=== PATIENT | female | born 1985 | race Caucasian/White ===

== ENCOUNTER 2016-08-27 05:23 | Observation (INO) | payer MEDICAID ==
[2016-08-27 05:58] LABS: APPEARANCE,URINE CLEAR; BILIRUBIN,URINE NEGATIVE (NEGATIVE); GLUCOSE, URINE NEGATIVE (NEGATIVE); KETONES,URINE NEGATIVE (NEGATIVE); LEUKOCYTE ESTERASE,URINE NEGATIVE (NEGATIVE); NITRITE,URINE NEGATIVE (NEGATIVE); PROTEIN,URINE NEGATIVE (NEGATIVE); URINE SPECIFIC GRAVITY 1.009; UROBILINOGEN,URINE NEGATIVE mg/dL (<2.0)
[2016-08-27 06:12] LABS: URINE BARBITURATES SCREEN NEGATIVE; URINE METHADONE SCREEN NEGATIVE; URINE PHENCYCLIDINE SCREEN NEGATIVE
--- NOTE | 2016-08-27 06:22 | L&D General Admission ---
General Admit Datetime Report Generated by CPN: 08/27/2016 06:00 INFORMATION Patient Age: 31 (08/02/2016 13:04:QS system process) EDC: 10/11/2016 00:00 (08/27/2016 05:27:Crystal Ermelinda RN) : 3 (08/27/2016 05:27:Crystal Ermelinda, RN) Para: 2 (08/27/2016 05:27:Crystal Ermelinda RN) Livin (08/27/2016 05:27:Crystal [place], RN) Baby, Number in Womb: 2 (08/27/2016 05:27:Crystal Ermelinda, RN) CARE Primary Director Investor Relations: [employer] (08/27/2016 05:27:Imani Wadsworth RN) Adequate Care: Yes (08/27/2016 05:27:Crystal Ermelinda RN) Height (in): 65 (08/27/2016 05:35:QS system process) ALLERGIES Medication Allergy: No (08/27/2016 05:27:Crystal Ermelinda, RN) Medication Allergies: No Known Allergies (08/27/2016) (08/27/2016 05:35:QS system process) Latex Allergy: No Latex Allergies (08/27/2016 05:27:Crystal Ermelinda, RN) Food Allergies: NA (08/27/2016 05:27:Crystal Ermelinda, RN) Environmental Allergies: NA (08/27/2016 05:27:Crystal Ermelinda, RN) COMMUNICATION Primary Language: Slovak (08/27/2016 05:27:Imani Wadsworth RN) Communication Barrier(s): None (08/27/2016 05:27:Imani Wadsworth RN) DEMOGRAPHICS Address: [address] [place] [id number] (08/02/2016 13:04:QS system process) Zipcode: [address] (08/02/2016 13:04:QS system process) Home (08/02/2016 13:04:QS system process) SSN: [id number] (08/02/2016 13:04:QS system process) Next of Kin Name: CYNTHIA SMITH (08/02/2016 13:04:QS system process) Next of Kin (08/02/2016 13:04:QS system process) Next of Kin Relationship: SPO (08/02/2016 13:04:QS system process) Date of : 1985 (08/02/2016 13:04:QS system process) Marital Status: (08/02/2016 13:04:QS system process) Sex: Female (08/02/2016 13:04:QS system process) Race: (08/02/2016 13:04:QS system process) Ethnicity: Non- or (08/02/2016 13:04:QS system process) Religious: Catholic (08/02/2016 13:04:QS system process) DRUG AND ALCOHOL USE Alcohol: No (08/27/2016 05:27:Crystal Ermelinda, RN) Cigarettes: Former Smoker. [id number] (08/27/2016 05:27:Crystal [place], RN) Marijuana: No (08/27/2016 05:27:Crystal Ermelinda, RN) Cocaine: No (08/27/2016 05:27:Crystal [place], RN) Other Illicit Drugs: No (08/27/2016 05:27:Crystal [place], RN) VACCINE HISTORY Influenza Vaccine: No (08/27/2016 05:27:Crystal Ermelinda, RN) Pneumococcal Vaccine: No (08/27/2016 05:27:Crystal [place], RN) Tetanus Vaccine: No (08/27/2016 05:27:Crystal Ermelinda, RN) Tdap Vaccine: Yes (08/27/2016 05:27:Crystal [place], RN) Tdap Date: 07/21/2016 (08/27/2016 05:27:Crystal Ermelinda, RN) Hepatitis B Vaccine: No (08/27/2016 05:27:Crystal Ermelinda, RN) Occupational Therapist Home Based: Other (08/27/2016 05:27:Imani Wadsworth RN) Feeding Preference: Breast (08/27/2016 05:27:Imani Wadsworth RN) Benefit of Breast Feed Discussed: Yes (08/27/2016 05:27:Imani Wadsworth RN) Circumcision: Yes (08/27/2016 05:27:Imani Wadsworth RN) Classes Attended: No (08/27/2016 05:27:Imani Wadsworth RN) Tubal Ligation: No (08/27/2016 05:27:Imani Wadsworth RN) Tubal Authorization Signed: N/A (08/27/2016 05:27:Imani Wadsworth RN) Consent: N/A (08/27/2016 05:27:Imani Wadsworth RN) Consent Signed: N/A (08/27/2016 05:27:Imani Wadsworth RN) Pain Management Plans: Epidural (08/27/2016 05:27:Imani Wadsworth RN) Plans for Labor and Delivery: None (08/27/2016 05:27:Imani Wadsworth RN) Support Person: Porfirio Smith (08/27/2016 05:27:Imani Wadsworth RN) Support Person Relationship: (08/27/2016 05:27:Imani Wadsworth RN) Cultural/Spritual Practice: Yes (08/27/2016 05:27:Imani Wadsworth RN) Spir/Cult Dietary Needs: Yes (08/27/2016 05:27:Imani Wadsworth RN) LIVING SITUATION/DISCHARGE PLAN Living Arrangements: House (08/27/2016 05:27:Imani Wadsworth RN) Adequate Access to:: Electric; Heat; Refrigeration; Plumbing/Running water; Phone; Transportation (08/27/2016 05:27:Imani Wadsworth RN) WIC Program: Yes (08/27/2016 05:27:Imani Wadsworth RN) Discharge Support Dba Person: Porfirio Smith (08/27/2016 05:27:Imani Wadsworth RN) Person to Help after Discharge: Porfirio Smith (08/27/2016 05:27:Imani Wadsworth RN) Currently Using Commun Resources: Yes (08/27/2016 05:27:Imani Wadsworth RN) Specify Current Resource Used: Food stamps (08/27/2016 05:27:Imani Wadsworth RN) Outside Agency/Bus Washer: Yes (08/27/2016 05:27:Imani Wadsworth RN) Car Seat for Discharge: Yes (08/27/2016 05:27:Imani Wadsworth RN) Adoption Requested: No (08/27/2016 05:27:Imani Wadsworth RN) Pt Contact w/infant Post : N/A (08/27/2016 05:27:Imani Wadsworth RN) LABS Blood Type: A Positive (08/27/2016 05:27:Imani Wadsworth RN) Antibody Screen: Negative (08/27/2016 05:27:Imani Wadsworth RN) Gonorrhea: Negative (08/27/2016 05:27:Imani Wadsworth RN) Chlamydia: Negative (08/27/2016 05:27:Imani Wadsworth RN) Rubella: Immune (08/27/2016 05:27:Imani Wadsworth RN) OB/PREVIOUS HISTORY Previous Procedures: NST (08/27/2016 05:27:Imani Wadsworth RN) Current Procedures: Ultrasound; NST (08/27/2016 05:27:Imani Wadsworth RN) History of Previous : No (08/27/2016 05:27:Imani Wadsworth RN) History of Gestational Diabetes: No (08/27/2016 05:27:Imani Wadsworth RN) History of PIH: No (08/27/2016 05:27:Imani Wadsworth RN) History of Incompetent Cervix: No (08/27/2016 05:27:Imani Wadsworth RN) History of Placenta Previa/Abrup: No (08/27/2016 05:27:Imani Wadsworth RN) History of Macrosomia: No (08/27/2016 05:27:Imani Wadsworth RN) History of IUGR: No (08/27/2016 05:27:Imani Wadsworth RN) History of Hemorrhage: No (08/27/2016 05:27:Imani Wadsworth RN) History of Loss/Stillborn: No (08/27/2016 05:27:Imani Wadsworth RN) History of : No (08/27/2016 05:27:Imani Wadsworth RN) History of D (Rh) Sensitization: No (08/27/2016 05:27:Imani Wadsworth RN) History Recurrent Loss/Stillborn: No (08/27/2016 05:27:Imani Wadsworth RN) History Depression/PP Depression: No (08/27/2016 05:27:Imani Wadsworth RN) History of Uterine Anomaly/NAVID: No (08/27/2016 05:27:Imani Wadsworth RN) History of Infertility: No (08/27/2016 05:27:Imani Wadsworth RN) History of ART Treatment: No (08/27/2016 05:27:Imani Wadsworth RN) History of NAVID: No (08/27/2016 05:27:Imani Wadsworth RN) Comments Obstetrical History: 04/10/2011- vaginal delivery 8lbs 08/14/2014- vaginal delivery 8 lbs 10 oz (08/27/2016 05:27:Imani Wadsworth RN) MEDICAL HISTORY Med Hx Diabetes: No (08/27/2016 05:27:Imani Wadsworth RN) Med Hx Hypertension: No (08/27/2016 05:27:Imani Wadsworth RN) Med Hx Heart Disease: No (08/27/2016 05:27:Imani Wadsworth RN) Med Hx Autoimmune Disorder: No (08/27/2016 05:27:Imani Wadsworth RN) Med Hx Kidney Disease/UTI: No (08/27/2016 05:27:Imani Wadsworth RN) Med Hx Neurologic/Epilepsy: No (08/27/2016 05:27:Imani Wadsworth RN) Med Hx Psychiatric Disorders: No (08/27/2016 05:27:Imani Wadsworth RN) Med Hx Hepatitis/Liver Disease: No (08/27/2016 05:27:Imani Wadsworth RN) Med Hx Varicosities/Phlebitis: No (08/27/2016 05:27:Imani Wadsworth RN) Med Hx Thyroid Dysfunction: No (08/27/2016 05:27:Imani Wadsworth RN) Med Hx Trauma/Violence: No (08/27/2016 05:27:Imani Wadsworth RN) Med Hx Blood Transfusion: No (08/27/2016 05:27:Imani Wadsworth RN) Med Hx Pulmonary (Asthma,TB): No (08/27/2016 05:27:Imani Wadsworth RN) Med Hx Breast: No (08/27/2016 05:27:Imani Wadsworth RN) Med Hx NURSING SECRETARY Surgery: No (08/27/2016 05:27:Imani Wadsworth RN) Med Hx Hospitalization/Surgery: No (08/27/2016 05:27:Imani Wadsworth RN) Med Hx Anesthetic Complications: No (08/27/2016 05:27:Imani Wadsworth RN) Med Hx Abnormal Pap Smear: No (08/27/2016 05:27:Imani Wadsworth RN) Other Medical Diseases: No (08/27/2016 05:27:Imani Wadsworth RN) Med Hx Significant Family Hx: No (08/27/2016 05:27:Imani Wadsworth RN) INFECTIOUS HISTORY Inf Hx Gonorrhea: No (08/27/2016 05:27:Imani Wadsworth RN) Inf Hx Chlamydia: No (08/27/2016 05:27:Imani Wadsworth RN) Inf Hx Syphilis: No (08/27/2016 05:27:Imani Wadsworth RN) Inf Hx HIV/AIDS: No (08/27/2016 05:27:Imani Wadsworth RN) Inf Hx Human Papilloma Virus: No (08/27/2016 05:27:Imani Wadsworth RN) Inf Hx Pt/Partner Genital Herpes: No (08/27/2016 05:27:Imani Wadsworth RN) Inf Hx Tuberculosis/Exposure: No (08/27/2016 05:27:Imani Wadsworth RN) Inf Hx Hepatitis B,C: No (08/27/2016 05:27:Imani Wadsworth RN) Inf Hx Rash or Viral Illness: No (08/27/2016 05:27:Imani Wadsworth RN) GENETIC HISTORY Gen Hx Age >=35 at [place]: No (08/27/2016 05:27:Imani Wadsworth RN) Gen Hx Thalassemia: No (08/27/2016 05:27:Imani Wadsworth RN) Gen Hx Congenital Heart Defect: No (08/27/2016 05:27:Imani Wadsworth RN) Gen Hx Neural Tube Defect: No (08/27/2016 05:27:Imani Wadsworth RN) Gen Hx Down's Syndrome: No (08/27/2016 05:27:Imani Wadsworth RN) Gen Hx Samuel-Sachs: No (08/27/2016 05:27:Imani Wadsworth RN) Gen Hx Francisco: No (08/27/2016 05:27:Imani Wadsworth RN) Gen Hx Familial Dysautonomia: No (08/27/2016 05:27:Imani Wadsworth RN) Gen Hx Sickle Cell Disease/Trait: No (08/27/2016 05:27:Imani Wadsworth RN) Gen Hx Hemophilia/Blood Disorder: No (08/27/2016 05:27:Imani Wadsworth RN) Gen Hx Muscular Dystrophy: No (08/27/2016 05:27:Imani Wadsworth RN) Gen Hx Cystic Fibrosis: No (08/27/2016 05:27:Imani Wadsworth RN) Gen Hx Huntingtons Chorea: No (08/27/2016 05:27:Imani Wadsworth RN) Gen Hx Mental Retardation/Autism: No (08/27/2016 05:27:Imani Wadsworth RN) Gen Hx Tested for Fragile X: No (08/27/2016 05:27:Imani Wadsworth RN) Gen Hx Other Inher/Chromosomal: No (08/27/2016 05:27:Imani Wadsworth RN) Gen Hx Maternal Metabolic DO: No (08/27/2016 05:27:Imani Wadsworth RN) Gen Hx Pt Father or FOB Defect: No (08/27/2016 05:27:Imani Wadsworth RN) Gen Hx Other Genetic History: No (08/27/2016 05:27:Imani Wadsworth RN) Gen Hx Drugs/Meds since LMP: No (08/27/2016 05:27:Imani Wadsworth RN)
--- NOTE | 2016-08-27 06:22 | L&D Current Admission ---
Current Admit Datetime Report Generated by CPN: 08/27/2016 06:00 ADMISSION INFORMATION Chief Complaint: Contractions (08/27/2016 05:31:Crystal Ermelinda, BAUDILIO)
[2016-08-27] MEDS ORDERED: CITRIC ACID/SODIUM CITRATE ORAL SOLN 15 ML UDCUP ONE ×2 (06:32→14:34)
[2016-08-27] MEDS ORDERED: ACETAMINOPHEN 325 MG TABLET ONE ×2 (06:33→14:34)
[2016-08-27] MEDS ORDERED: CITRIC ACID/SODIUM CITRATE ORAL SOLN 15 ML UDCUP PO ONE (06:38)
[2016-08-27] MEDS ORDERED: ACETAMINOPHEN 325 MG TABLET PO ONE (06:38)
[2016-08-27] MEDS ORDERED: BETAMET ACET/BETAMET NA INJ 6 MG/1 ML ONE (06:44)
[2016-08-27] MEDS ORDERED: PENICILLIN G-K 5 MILLION UNIT VIAL ONE (06:44)
--- NOTE | 2016-08-27 08:01 | L&D Flow Sheet ---
LD Flowsheet Datetime Report Generated by CPN: 08/27/2016 08:00 Datetime: 08/27/2016 07:28 Respirations: 18 (Daria Bellavance, RNC) Uterine Activity Monitor Mode: External (Daria Bellavance, RNC) Monitor Interventions for UA: [place] Adjusted (Daria Bellavance, RNC) Frequency (min): occassional (Daria [place]avance, RNC) Quality: Mild (Daria Bellavance, RNC) Duration (sec): 70 (Daria Bellavance, RNC) Duration Criteria: Less than Two 120 Second Contractions (Daria Bellavance, RNC) Pattern: Normal: <= 5 Contractions in 10 Minutes (Daria Bellavance, RNC) Resting Tone (Palpate): Relaxed (Daria Bellavance, RNC) Assessment A Monitor Mode: External US (Daria Bellavance, RNC) Monitor Interventions for FHR: Ultrasound Adjusted (Daria Bellavance, RNC) FHR Baseline Rate : 130 (Daria Bellavance, RNC) Variability: Moderate 6-25 bpm (Daria Bellavance, RNC) Accelerations: 10X10 (Daria Bellavance, RNC) Decelerations: None (Daria Bellavance, RNC) Assessment B Monitor Mode: External US (Daria Bellavance, RNC) FHR Baseline Rate : 135 (Daria Bellavance, RNC) Variability: Moderate 6-25 bpm (Daria Bellavance, RNC) Accelerations: 10X10 (Daria Bellavance, RNC) Decelerations: None (Daria Bellavance, RNC) Category: Category II (Daria Bellavance, RNC) Pain Pain Scale: 0 (Daria Bellavance, RNC) Maternal Assessment Level of Consciousness: Fully Conscious (Daria Bellavance, RNC) DTR's/Clonus: DTRs 2+; No Clonus (Daria Bellavance, RNC) Headache: Denies (Daria Bellavance, RNC) Breath Sounds, Left: Clear and Equal (Daria Bellavance, RNC) Breath Sounds, Right: Clear and Equal (Daria Bellavance, RNC) Nausea/Vomiting: Denies (Daria Bellavance, RNC) RUQ Epigastric Pain: Denies (Daria Bellavance, RNC) Patient Care IV/Blood Work: IV Infusing per Order (Daria Bellavance, RNC) Patient Position/Activity: Semi-Fowlers (Daria Bellavance, RNC) Comfort Measures: Breathing/Relaxation (Daria Bellavance, RNC) I/O Interventions: Up to BR (Daria Bellavance, RNC) LaborFlag: OB Triage (QS system process) Datetime: 08/27/2016 07:25 NBP Sys/Monalisa/Mean (mmHg): 134 (QS system process) : 79 (QS system process) : 100 (QS system process) Pulse: 86 (QS system process) LaborFlag: OB Triage (QS system process) Datetime: 08/27/2016 07:13 Communication Communication: Report Given to @ D. Bellavance, RN (Crystal Ermelinda, RN) Datetime: 08/27/2016 07:10 Uterine Activity Monitor Mode: External; Palpation (Crystal [place], RN) Monitor Interventions for UA: [place] Adjusted (Crystal [place], RN) Frequency (min): 1 (Crystal [place], RN) Quality: Mild (Crystal [place], RN) Duration (sec): 60 (Crystal Ermelinda, RN) Resting Tone (Palpate): Relaxed (Crystal [place], RN) Assessment A Monitor Mode: External US (Crystal [place], RN) Monitor Interventions for FHR: Ultrasound Adjusted (Crystal Ermelinda, RN) Decelerations: None (Crystal Ermelinda, RN) Comments: UTD (Crystal [place], RN) Assessment B Monitor Mode: External US (Crystal Ermelinda, RN) FHR Baseline Rate : 130 (Crystal [place], RN) Variability: Moderate 6-25 bpm (Crystal Ermelinda, RN) Accelerations: 15X15 (Crystal [place], RN) Decelerations: None (Crystal [place], RN) Comments: Ultrasound adjusted (Crystal [place], RN) Patient Position/Activity: Right Tilt; Semi-Fowlers (Crystal Ermelinda, RN) Datetime: 08/27/2016 06:57 Patient Care IV/Blood Work: IV Bolus Started (Crystal Ermelinda, RN) Patient Care Comments: 500 Ml bolus given (Crystal Ermelinda, RN) Datetime: 08/27/2016 06:53 Antibiotics: Penicillin IV (Units) @ 5,000,000 (Crystal Ermelinda, RN) Datetime: 08/27/2016 06:48 Steroids: Celestone 12mg IM - Dose 1 (Crystal Ermelinda, RN) Medication Comments: given in R hip (Crystal Ermelinda, RN) Datetime: 08/27/2016 06:40 Vital Signs Stage of : OB Triage (Crystal [place], RN) Patient Care IV/Blood Work: IV Started (Annotations: 18 G left FA) (Crystal [place], RN) Datetime: 08/27/2016 06:38 Uterine Activity Monitor Mode: External; Palpation (Crystal [place], RN) Frequency (min): 8.5 (Crystal [place], RN) Quality: Mild (Crystal Ermelinda, RN) Duration (sec): 90-110 (Crystal Ermelinda, RN) Duration Criteria: Less than Two 120 Second Contractions (Crystal [place], RN) Resting Tone (Palpate): Relaxed (Crystal Ermelinda, RN) Assessment A Monitor Mode: External US (Crystal [place], RN) Monitor Interventions for FHR: Ultrasound Adjusted (Crystal [place], RN) FHR Baseline Rate : 140 (Crystal [place], RN) Variability: Moderate 6-25 bpm (Crystal Ermelinda, RN) Accelerations: 15X15 (Crystal Ermelinda, RN) Decelerations: None (Crystal Ermelinda, RN) FHR Baseline Rate : 140 (Crystal [place], RN) Variability: Moderate 6-25 bpm (Crystal Ermelinda, RN) Accelerations: None (Crystal Ermelinda, RN) Decelerations: None (Crystal [place], RN) Comments: ultrasound adjusted (Crystal [place], RN) Patient Position/Activity: Left Tilt; Semi-Fowlers (Crystal [place], RN) I/O Interventions: Clear Liquids Given (Crystal [place], RN) Datetime: 08/27/2016 06:35 Medications Analgesics/Sedatives: Tylenol (mg) @ 975 (Crystal Ermelinda, RN) Antiemetics/Antacids: Bicitra 15 ml PO (Crystal Ermelinda, RN) Datetime: 08/27/2016 06:23 Vital Signs Stage of : OB Triage (Crystal Ermelinda, RN) Provider Reviewed Strip: Yes (Crystal Ermelinda, RN) Communication Communication: Provider Orders Received (Crystal Ermelinda, RN) Provider Notified (Name): Wiley (Crystal Ermelinda, RN) Notification Reason: Patient Request; Other (Crystal Ermelinda, RN) Communication Comments: [place] received for Bicitra 15 ml PO for reflux. (Crystal [place], RN) Datetime: 08/27/2016 06:20 Communication Comments: Provider preforming ultrasound at bedside to determine lie . Baby A is vertex, Baby B breech. (Crystal [place], RN) Datetime: 08/27/2016 06:18 Vital Signs Stage of : OB Triage (Imani Wadsworth, BAUDILIO) Provider Reviewed Strip: Yes (Crystal [place], RN) Communication Communication: Provider at Bedside (Imani Wadsworth RN) Provider Notified (Name): Inez (Imani Wadsworth RN) Notification Reason: Status Update; Status; Labor Status; Membrane Status; Uterine Activity (Imani Wadsworth RN) Communication Comments: Provider educating pt on status and delivery options. (Imani Wadsworth RN) Datetime: 08/27/2016 06:07 Vaginal Exam Dilatation (cm): 3.0 (Armida Marc RN) Effacement (%): 80 (Armida Marc, RN) Station: -1 (Armida Marc, RN) Exam by: KHARI Conley (Armida Marc RN) Vaginal Bleeding: None (Armida Marc RN) Cervix, Consistency: Soft (Armida Marc RN) Cervix, Position: Midposition (Armida Marc, RN) Datetime: 08/27/2016 05:44 NBP Sys/Monalisa/Mean (mmHg): 123 (QS system process) : 77 (QS system process) : 96 (QS system process) Pulse: 93 (QS system process) LaborFlag: OB Triage (QS system process) Datetime: 08/27/2016 05:43 Vital Signs Stage of : OB Triage (Crystal [place], RN) Assessment A Monitor Mode: External US (Crystal Ermelinda, RN) FHR Baseline Rate : 125 (Crystal Ermelinda, RN) Variability: Moderate 6-25 bpm (Crystal Ermelinda, RN) Accelerations: 15X15 (Crystal Ermelinda, RN) Decelerations: None (Crystal Ermelinda, RN) Assessment B Monitor Mode: External US (Crystal [place], RN) FHR Baseline Rate : 140 (Crystal [place], RN) Variability: Moderate 6-25 bpm (Crystal Ermelinda, RN) Accelerations: 15X15 (Crystal [place], RN) Decelerations: None (Crystal Ermelinda, RN) Datetime: 08/27/2016 05:31 Pain Pain Scale: 2 (Crystal Ermelinda, RN) Pain Presence: Intermittent (Crystal Ermelinda, RN) Pain Type: Contraction (Crystal Ermelinda, RN) Pain Location: Abdomen (Crystal Ermelinda, RN) Pain Goal: 2 (Crystal [place], RN) Pain Relief Measures: Comfort Measures (Crystal Ermelinda, RN) Pain Coping: Talking Through Contractions (Crystal Ermelinda, RN) Vaginal Bleeding: None (Crystal Ermelinda, RN) Breath Sounds, Left: Clear and Equal (Crystal [place], RN) Breath Sounds, Right: Clear and Equal (Crystal Ermelinda, RN) Nausea/Vomiting: Denies (Crystal [place], RN) RUQ Epigastric Pain: Present (Crystal [place], RN) Teaching Instructional Method: Verbal; Patient Instructed; Family/Support Person Instructed; Verbalized Understanding (Imani Wadsworth RN) Plan of Care: Plan of Care Discussed (Imani Wadsworth RN) Unit Routine: [place] to Room; Call Forrester; Bed (Imani Wadsworth RN) Labor/Induction: Labor Stages (Imani Wadsworth RN) Pain Management: Pain Scale/Goals; Comfort Measures (Imani Wadsworth RN)
--- NOTE | 2016-08-27 12:01 | L&D Flow Sheet ---
LD Flowsheet Datetime Report Generated by CPN: 08/27/2016 12:00 Datetime: 08/27/2016 11:00 Monitor Mode: External (Daria Bellavance, RNC) Monitor Interventions for UA: [place] Adjusted (Daria Bellavance, RNC) Frequency (min): rare (Daria Bellavance, RNC) Quality: Mild (Daria Bellavance, RNC) Duration (sec): 90 (Daria Bellavance, RNC) Duration Criteria: Less than Two 120 Second Contractions (Daria Bellavance, RNC) Pattern: Normal: <= 5 Contractions in 10 Minutes (Daria Bellavance, RNC) Monitor Mode: External US (Daria Bellavance, RNC) Monitor Interventions for FHR: Ultrasound Adjusted (Daria Bellavance, RNC) FHR Baseline Rate : 150 (Daria Bellavance, RNC) Variability: Moderate 6-25 bpm (Daria Bellavance, RNC) Accelerations: 15X15 (Daria Bellavance, RNC) Decelerations: None (Daria Bellavance, RNC) Monitor Mode: External US (Daria Bellavance, RNC) FHR Baseline Rate : 135 (Daria Bellavance, RNC) Variability: Moderate 6-25 bpm (Daria Bellavance, RNC) Accelerations: 15X15 (Daria Bellavance, RNC) Decelerations: None (Daria Bellavance, RNC) Pain Scale: 3 (Daria Bellavance, RNC) Pain Presence: Intermittent (Daria Bellavance, RNC) Pain Type: Pressure (Daria Bellavance, RNC) Pain Location: Abdomen (Daria Bellavance, RNC) Pain Goal: 0 (Daria Bellavance, RNC) Pain Relief Measures: Comfort Measures (Daria Bellavance, RNC) IV/Blood Work: IV Infusing per Order (Daria Bellavance, RNC) Patient Position/Activity: Semi-Fowlers (Daria Bellavance, RNC) Comfort Measures: Breathing/Relaxation (Daria Bellavance, RNC) LaborFlag: OB Triage (QS system process) Datetime: 08/27/2016 10:30 Monitor Mode: External (Daria Bellavance, RNC) Monitor Interventions for UA: [place] Adjusted (Daria Bellavance, RNC) Frequency (min): rare (Daria Bellavance, RNC) Quality: Mild (Daria Bellavance, RNC) Duration (sec): 90 (Daria Bellavance, RNC) Duration Criteria: Less than Two 120 Second Contractions (Daria Bellavance, RNC) Pattern: Normal: <= 5 Contractions in 10 Minutes (Daria Bellavance, RNC) Monitor Mode: External US (Daria Bellavance, RNC) Monitor Interventions for FHR: Ultrasound Adjusted (Daria Bellavance, RNC) FHR Baseline Rate : 150 (Daria Bellavance, RNC) Variability: Moderate 6-25 bpm (Daria Bellavance, RNC) Accelerations: 15X15 (Daria Bellavance, RNC) Decelerations: None (Daria Bellavance, RNC) Monitor Mode: External US (Daria Bellavance, RNC) FHR Baseline Rate : 135 (Daria Bellavance, RNC) Variability: Moderate 6-25 bpm (Daria Bellavance, RNC) Accelerations: 15X15 (Daria Bellavance, RNC) Decelerations: None (Daria Bellavance, RNC) IV/Blood Work: IV Infusing per Order (Darai Bellavance, RNC) Patient Position/Activity: Semi-Fowlers (Daria Bellavance, RNC) Comfort Measures: Breathing/Relaxation (Daria Bellavance, RNC) Datetime: 08/27/2016 10:00 Monitor Mode: External (Daria Bellavance, RNC) Monitor Interventions for UA: [place] Adjusted (Daria Bellavance, RNC) Frequency (min): rare (Daria Bellavance, RNC) Quality: Mild (Daria Bellavance, RNC) Duration (sec): 90 (Daria Bellavance, RNC) Duration Criteria: Less than Two 120 Second Contractions (Daria Bellavance, RNC) Pattern: Normal: <= 5 Contractions in 10 Minutes (Daria Bellavance, RNC) Monitor Mode: External US (Daria Bellavance, RNC) Monitor Interventions for FHR: Ultrasound Adjusted (Daria Bellavance, RNC) FHR Baseline Rate : 150 (Daria Bellavance, RNC) Variability: Moderate 6-25 bpm (Daria Bellavance, RNC) Accelerations: 15X15 (Daria Bellavance, RNC) Decelerations: None (Daria Bellavance, RNC) Monitor Mode: External US (Daria Bellavance, RNC) FHR Baseline Rate : 135 (Daria Bellavance, RNC) Variability: Moderate 6-25 bpm (Daria Bellavance, RNC) Accelerations: 15X15 (Daria Bellavance, RNC) Decelerations: None (Daria Bellavance, RNC) IV/Blood Work: IV Infusing per Order (Daria Bellavance, RNC) Patient Position/Activity: Semi-Fowlers (Daria Bellavance, RNC) Comfort Measures: Breathing/Relaxation (Daria Bellavance, RNC) Datetime: 08/27/2016 09:36 Comments: back on the monitor (Daria Bellavance, RNC) Datetime: 08/27/2016 09:10 Monitor Mode: External (Daria Bellavance, RNC) Monitor Interventions for UA: [place] Adjusted (Daria Bellavance, RNC) Frequency (min): rare (Daria Bellavance, RNC) Quality: Mild (Daria Bellavance, RNC) Duration (sec): 90 (Daria Bellavance, RNC) Duration Criteria: Less than Two 120 Second Contractions (Daria Bellavance, RNC) Pattern: Normal: <= 5 Contractions in 10 Minutes (Daria Bellavance, RNC) Monitor Mode: External US (Daria Bellavance, RNC) Monitor Interventions for FHR: Ultrasound Adjusted (Daria Bellavance, RNC) FHR Baseline Rate : 150 (Daria Bellavance, RNC) Variability: Moderate 6-25 bpm (Daria Bellavance, RNC) Accelerations: 15X15 (Daria Bellavance, RNC) Decelerations: None (Daria Bellavance, RNC) Monitor Mode: External US (Daria Bellavance, RNC) FHR Baseline Rate : 135 (Daria Bellavance, RNC) Variability: Moderate 6-25 bpm (Daria Bellavance, RNC) Accelerations: 15X15 (Daria Bellavance, RNC) Decelerations: None (Daria Bellavance, RNC) IV/Blood Work: IV Infusing per Order (Daria Bellavance, RNC) Patient Position/Activity: Semi-Fowlers (Daria Bellavance, RNC) Comfort Measures: Breathing/Relaxation (Daria Bellavance, RNC) Datetime: 08/27/2016 09:09 I/O Interventions: Up to BR (Daria Bellavance, RNC) Datetime: 08/27/2016 08:35 Monitor Mode: External (Daria Bellavance, RNC) Monitor Interventions for UA: [place] Adjusted (Daria Bellavance, RNC) Frequency (min): rare (Daria Bellavance, RNC) Quality: Mild (Daria Bellavance, RNC) Duration (sec): 90 (Daria Bellavance, RNC) Duration Criteria: Less than Two 120 Second Contractions (Daria Bellavance, RNC) Pattern: Normal: <= 5 Contractions in 10 Minutes (Daria Bellavance, RNC) Monitor Mode: External US (Daria Bellavance, RNC) Monitor Interventions for FHR: Ultrasound Adjusted (Daria Bellavance, RNC) FHR Baseline Rate : 150 (Daria Bellavance, RNC) Variability: Moderate 6-25 bpm (Daria Bellavance, RNC) Accelerations: 15X15 (Daria Bellavance, RNC) Decelerations: None (Daria Bellavance, RNC) Monitor Mode: External US (Daria Bellavance, RNC) FHR Baseline Rate : 135 (Daria Bellavance, RNC) Variability: Moderate 6-25 bpm (Daria Bellavance, RNC) Accelerations: 15X15 (Daria Bellavance, RNC) Decelerations: None (Daria Bellavance, RNC) Pain Scale: 3 (Daria Bellavance, RNC) IV/Blood Work: IV Infusing per Order (Daria Bellavance, RNC) Patient Position/Activity: Semi-Fowlers (Daria Bellavance, RNC) Comfort Measures: Breathing/Relaxation (Daria Bellavance, RNC) LaborFlag: OB Triage (QS system process) Datetime: 08/27/2016 08:07 Monitor Mode: External (Daria Bellavance, RNC) Monitor Interventions for UA: [place] Adjusted (Daria Bellavance, RNC) Frequency (min): rare (Daria Bellavance, RNC) Quality: Mild (Daria Bellavance, RNC) Duration (sec): 90 (Daria Bellavance, RNC) Duration Criteria: Less than Two 120 Second Contractions (Daria Bellavance, RNC) Pattern: Normal: <= 5 Contractions in 10 Minutes (Daria Bellavance, RNC) Monitor Mode: External US (Daria Bellavance, RNC) Monitor Interventions for FHR: Ultrasound Adjusted (Daria Bellavance, RNC) FHR Baseline Rate : 150 (Daria Bellavance, RNC) Variability: Moderate 6-25 bpm (Daria Bellavance, RNC) Accelerations: 15X15 (Daria Bellavance, RNC) Decelerations: None (Daria Bellavance, RNC) Monitor Mode: External US (Daria Basilioe, RNC) FHR Baseline Rate : 135 (Daria Anuelnce, RNC) Variability: Moderate 6-25 bpm (Daria Anuelnce, RNC) Accelerations: 15X15 (Daria Mitzyavance, RNC) Decelerations: None (Daria Anuelnce, RNC) Category: Category II (Daria Anuelnce, RNC) Pain Scale: 3 (Daria Anuelnce, RNC) Pain Presence: Intermittent (Daria Anuelnce, RNC) Pain Type: Pressure (Daria Anuelnce, RNC) Pain Location: Abdomen (Dariamily Ageence, RNC) Pain Goal: 0 (Daria Bellnancynce, RNC) Pain Relief Measures: Comfort Measures (Daria Ageence, RNC) IV/Blood Work: IV Infusing per Order (Daria Araujo, RNC) Patient Position/Activity: Semi-Fowlers (Daria Anuelnce, RNC) Comfort Measures: Breathing/Relaxation (Daria Anuelnce, RNC) LaborFlag: OB Triage (QS system process)
--- NOTE | 2016-08-27 20:01 | L&D Flow Sheet ---
LD Flowsheet Datetime Report Generated by CPN: 08/27/2016 20:00 Datetime: 08/27/2016 19:57 Monitor Interventions for FHR: Ultrasound Adjusted (Jesica Sam, RN) Datetime: 08/27/2016 19:37 NBP Sys/Monalisa/Mean (mmHg): 133 (QS system process) : 88 (QS system process) : 106 (QS system process) Pulse: 100 (QS system process) LaborFlag: OB Triage (QS system process) Datetime: 08/27/2016 19:22 Pain Scale: 3 (Jesica Sam, RN) Pain Assessment Comments: pt. styates she feels intermittent ctn's some stronger than others (Jesica Sam, RN) LaborFlag: OB Triage (QS system process) Datetime: 08/27/2016 19:15 Communication Comments: Care assumed from D. Bellavance, RN (Jesica Sam, RN) Datetime: 08/27/2016 19:07 Monitor Mode: External (Daria Bellavance, RNC) Frequency (min): 3-10 (Daria Bellavance, RNC) Quality: Mild (Daria Bellavance, RNC) Duration (sec): 50-90 (Daria Bellavance, RNC) Duration Criteria: Less than Two 120 Second Contractions (Daria Bellavance, RNC) Pattern: Normal: <= 5 Contractions in 10 Minutes (Daria Bellavance, RNC) Resting Tone (Palpate): Relaxed (Daria Bellavance, RNC) Pain Assessment Comments: pressure (Daria Bellavance, RNC) Dilatation (cm): 3.0 (Daria Bellavance, RNC) Effacement (%): 80 (Daria Bellavance, RNC) Station: -2 (Daria Bellavance, RNC) Exam by: Deni Raymond CNM (Daria Bellavance, RNC) Membrane Status: Intact (Daria Bellavance, RNC) LaborFlag: OB Triage (QS system process) Datetime: 08/27/2016 18:32 Monitor Mode: External (Daria Bellavance, RNC) Frequency (min): 4-8 (Daria Bellavance, RNC) Quality: Mild (Daria Bellavance, RNC) Duration (sec): 60-90 (Daria Bellavance, RNC) Duration Criteria: Less than Two 120 Second Contractions (Daria Bellavance, RNC) Pattern: Normal: <= 5 Contractions in 10 Minutes (Daria Bellavance, RNC) Resting Tone (Palpate): Relaxed (Daria Bellavance, RNC) IV/Blood Work: IV Infusing per Order; New IV Bag Hung (Daria Bellavance, RNC) Patient Position/Activity: Semi-Fowlers (Daria Bellavance, RNC) Patient Care Comments: iv hung for hydration (Daria Bellavance, RNC) Datetime: 08/27/2016 18:29 I/O Interventions: Up to BR (Daria Bellavance, RNC) Datetime: 08/27/2016 18:00 Monitor Mode: External (Daria Bellavance, RNC) Frequency (min): 5-8 (Adria Bellavance, RNC) Quality: Mild (Daria Bellavance, RNC) Duration (sec): 60-110 (Daria Bellavance, RNC) Duration Criteria: Less than Two 120 Second Contractions (Daria Bellavance, RNC) Pattern: Normal: <= 5 Contractions in 10 Minutes (Daria Bellavance, RNC) Resting Tone (Palpate): Relaxed (Daria Bellavance, RNC) Datetime: 08/27/2016 17:39 I/O Interventions: Up to BR (Daria Bellavance, RNC) Datetime: 08/27/2016 17:33 Monitor Mode: External (Daria Bellavance, RNC) Frequency (min): 3-8 (Daria Bellavance, RNC) Quality: Mild (Daria Bellavance, RNC) Duration (sec): 50-90 (Daria Bellavance, RNC) Duration Criteria: Less than Two 120 Second Contractions (Daria Bellavance, RNC) Pattern: Normal: <= 5 Contractions in 10 Minutes (Daria Bellavance, RNC) Resting Tone (Palpate): Relaxed (Daria Bellavance, RNC) Datetime: 08/27/2016 16:57 Comments: back on the monitor for c/o contractions increasing (Daria Bellavance, RNC) Datetime: 08/27/2016 16:00 Pain Assessment Comments: slight improvement of heartburn with [place] (Daria Bellavance, RNC) LaborFlag: OB Triage (QS system process) Datetime: 08/27/2016 15:30 Pain Assessment Comments: headache better and heartburn same Ginger[place] given (Daria Bellavance, RNC) LaborFlag: OB Triage (QS system process) Datetime: 08/27/2016 14:40 Pain Assessment Comments: tylenol 975mg po given for headache and bicitra 30 ml po given for heartburn (KHARI Black) LaborFlag: OB Triage (QS system process)
--- NOTE | 2016-08-27 22:21 | Non Stress Test Report ---
Non Stress Test Datetime Report Generated by CPN: 08/27/2016 22:21 DEMOGRAPHIC EGA NST: 33.4 INDICATION Indication for Study: Ordered by Provider MONITORING Monitor Explained: Monitor Explained; Test Explained; Patient Verbalized Understanding Time on Monitor: 08/27/2016 19:42 Time off Monitor: 08/27/2016 20:22 NST Duration: 40 NST INTERVENTIONS NST Interventions: IV Fluids Physician Notified NST: Dr. Mendoza BABY A: [id number] BABY A Movement : Present Contraction Frequency : 2-6 FHR Baseline : 130 Accelerations : 15X15 Decelerations : None Variability : Moderate 6-25bpm NST Review: Meets Criteria for Reactive NST NST Review and Verified By : Nena Thacker RN Results: Reactive NST REPORT Report Trigger: Send Report
[2016-08-28] MEDS ORDERED: HYDROXYZINE PAMOATE 50 MG CAPSULE ONE (00:22)
[2016-08-28] MEDS ORDERED: RINGERS SOLUTION,LACTATED 1,000 ML IV PRN (00:32)
[2016-08-28] MEDS ORDERED: HYDROXYZINE PAMOATE 50 MG CAPSULE PO ONE (01:00)
--- NOTE | 2016-08-28 04:48 | L&D Discharge Summary ---
OB Discharge Summary Datetime Report Generated by CPN: 08/28/2016 04:45 DISCHARGE DIAGNOSIS Gestation: 33.4 Number of Babies in Womb: 2 Parity: 2
--- NOTE | 2016-08-28 04:48 | L&D Current Admission ---
Current Admit Datetime Report Generated by CPN: 08/28/2016 04:45 ADMISSION INFORMATION Current Admit Date/Time: 08/27/2016 18:04 (08/27/2016 05:31:KHARI Black) Reason for Admission: Labor (08/27/2016 05:31:KHARI Black) Chief Complaint: Contractions (08/27/2016 05:31:Imani Wadsworth RN) EGA per Dates: 33.4 (08/27/2016 05:31:QS system process) Method of Arrival: Ambulatory (08/27/2016 05:31:KHARI Black) Admitted From: Antepartum Unit (08/27/2016 05:31:KHARI Black) Reason for Induction: Not Applicable (08/27/2016 05:31:KHARI Black) Records Available: Yes (08/27/2016 05:31:KHARI Black) General Admission Information: Reviewed (08/27/2016 05:31:KHARI Black) General Admission Reviewed By: Manuel LUCIA (08/27/2016 05:31:KHARI Black) BELONGINGS/ADVANCED DIRECTIVES Valuables/Personal Effects: None (08/27/2016 05:31:KHARI Black) Disposition of Belongings: Kept with Patient (08/27/2016 05:31:KHARI Black) Advance Direct for Healthcare: No, and Wants No Information (08/27/2016 05:31:KHARI Black) Durable Power of Medical Billing Clerk: No (08/27/2016 05:31:KHARI Black) Living Will: No (08/27/2016 05:31:KHARI Black) Organ Donor: Undecided (08/27/2016 05:31:KHARI Black) Pt Rights Information Given: Yes (08/27/2016 05:31:KHARI lBack) Pt Understands Pt Rights: Yes (08/27/2016 05:31:KHARI Black) LEARNING ASSESSMENT Knowledge Level: Understands L_D Process; Understands Care Activities (08/27/2016 05:31:KHARI Black) Barriers to Learning: None (08/27/2016 05:31:KHARI Black) Learning Readiness: Motivated (08/27/2016 05:31:KHARI Black) Learns Best By: 1 to 1 Instruction; Reading; Videos; Group Discussion; Demonstration (08/27/2016 05:31:KHARI Black) Learning Needs: Labor and Delivery Process; Pain Management; Symptoms to Report; Treatment Plan; Medication; Diagnosis; Nutrition; Equipment; Infant Care; Community Resources (08/27/2016 05:31:KHARI Black) DOMESTIC VIOLANCE SCREENING Dom Viol Threatened/Hurt: No (08/27/2016 05:31:KHARI Black) Hx of Abuse/Neglect past 2yrs: No (08/27/2016 05:31:KHARI Black) Feel Unsafe Going Home: No (08/27/2016 05:31:KHARI Black) Addt'l Observ Indicating Abuse: No (08/27/2016 05:31:KHARI Black) Reason Unable to Complete Screen: N/A, Screen Completed (08/27/2016 05:31:KHARI Black) Considered Personal Harm/Suicide: No (08/27/2016 05:31:KHARI Black) NUTRITIONAL/FUNCTIONAL SCREENING Problem with Appetite >5 Days: No (08/27/2016 05:31:KHARI Black) Chew/Swallow Difficulties: No (08/27/2016 05:31:KHARI Black) Inappropriate Wt Gain/Loss: No (08/27/2016 05:31:KHARI Black) Presence Skin Breakdown/Ulcer: No (08/27/2016 05:31:KHARI Black) Special Diet: No (08/27/2016 05:31:KHARI Black) Pt Requests Rn Labor Delivery Visit: No (08/27/2016 05:31:KHARI Black) Hx of Any of the Following?: N/A (08/27/2016 05:31:KHARI Black) New Diagnosis of: N/A (08/27/2016 05:31:KHARI Black) Requires Assist w/Ambulation: Hillary (08/27/2016 05:31:KHARI Black) Uses Assist Device to Ambulate: No (08/27/2016 05:31:KHARI Black) Pt Requires Help w/ADL's: Hillary (08/27/2016 05:31:KHARI Black)
--- NOTE | 2016-08-28 04:48 | L&D Admission Assessment ---
LD ADM ASMT Datetime Report Generated by CPN: 08/28/2016 04:45 PATIENT ASSESSMENT Assessment Type: Ongoing Assessment (08/27/2016 07:28:Daria Bellavance, RNC) Assessment Type: Triage (08/27/2016 05:31:Crystal Ermelinda, RN) WEIGHT Weight (lb): 211 (08/27/2016 15:51:QS system process) Weight (lb): 211 (08/27/2016 05:36:QS system process) Weight (lb): 211 (08/27/2016 05:35:QS system process) Weight (kg): 95.9 (08/27/2016 15:51:QS system process) Weight (kg): 95.9 (08/27/2016 05:36:QS system process) Weight (kg): 95.9 (08/27/2016 05:35:QS system process) Total Wt Gain (lb): 43 (08/27/2016 15:51:QS system process) Total Wt Gain (lb): 43 (08/27/2016 05:36:QS system process) Total Wt Gain (lb): 43 (08/27/2016 05:35:QS system process) Wt Gain (kg): 19.6 (08/27/2016 15:51:QS system process) Wt Gain (kg): 19.6 (08/27/2016 05:36:QS system process) Wt Gain (kg): 19.6 (08/27/2016 05:35:QS system process) BMI: 35.1 (08/27/2016 15:51:QS system process) BMI: 35.1 (08/27/2016 05:36:QS system process) PAIN Pain Scale: 2 (08/27/2016 23:28:Jesica Vargas RN) Pain Scale: 3 (08/27/2016 19:22:Jesica Vargas RN) Pain Scale: 3 (08/27/2016 11:00:KHARI Black) Pain Scale: 3 (08/27/2016 08:35:KHARI Black) Pain Scale: 3 (08/27/2016 08:07:KHARI Black) Pain Scale: 0 (08/27/2016 07:28:KHARI Black) Pain Scale: 2 (08/27/2016 05:31:Imani Wadsworth RN) Pain Presence: Intermittent (08/27/2016 11:00:KHARI Black) Pain Presence: Intermittent (08/27/2016 08:07:KHARI Black) Pain Presence: Intermittent (08/27/2016 05:31:Imani Wadsworth RN) Pain Type: Pressure (08/27/2016 11:00:KHARI Black) Pain Type: Pressure (08/27/2016 08:07:KHARI Black) Pain Type: Contraction (08/27/2016 05:31:Imani Wadsworth RN) Pain Location: Abdomen (08/27/2016 11:00:KHARI Black) Pain Location: Abdomen (08/27/2016 08:07:KHARI lBack) Pain Location: Abdomen (08/27/2016 05:31:Imani Wadsworth RN) Pain Goal: 0 (08/27/2016 11:00:KHARI Black) Pain Goal: 0 (08/27/2016 08:07:KHARI Black) Pain Goal: 2 (08/27/2016 05:31:Imani Wadsworth RN) Pain Related to Contraction: Yes (08/27/2016 05:31:Imani Wadsworth RN) Pain Comments: pt. states she doesnt feel her ctn's when she is up, but sh is aware of them when she lays down (08/27/2016 23:28:Jesica Vargas RN) Pain Comments: pt. styates she feels intermittent ctn's some stronger than others (08/27/2016 19:22:Jesica Vargas RN) Pain Comments: pressure (08/27/2016 19:07:KHARI Black) Pain Comments: slight improvement of heartburn with [place]inger[place] (08/27/2016 16:00:KHARI Black) Pain Comments: headache better and heartburn same Ginger[place] given (08/27/2016 15:30:KHARI Black) Pain Comments: tylenol 975mg po given for headache and bicitra 30 ml po given for heartburn (08/27/2016 14:40:KHARI Black) CONTRACTIONS Frequency (min): IREGG (08/28/2016 04:30:Jesica Sam, RN) Frequency (min): 1.5-7 (08/28/2016 04:00:Jesica Sam, RN) Frequency (min): 4-7 (08/28/2016 03:30:Jesica Sam, RN) Frequency (min): IREGG (08/28/2016 03:00:Jesica Sam, RN) Frequency (min): x3 (08/28/2016 02:30:Jesica Sam, RN) Frequency (min): x1 (08/28/2016 02:00:Jesica Sam, RN) Frequency (min): OCC (08/28/2016 01:30:Jesica Sam, RN) Frequency (min): 4-8 (08/28/2016 01:00:Jesica Sam, RN) Frequency (min): 5.5-6 (08/28/2016 00:30:Jesica Sam, RN) Frequency (min): 2-7 (08/28/2016 00:00:Jesica Sam, RN) Frequency (min): 3-6 (08/27/2016 23:30:Jesica Sam, RN) Frequency (min): 1.5-8 (08/27/2016 23:00:Jesica Sam, RN) Frequency (min): 1.5-8 (08/27/2016 22:30:Jesica Sam, RN) Frequency (min): 1-6 (08/27/2016 22:00:Jesica Sam, RN) Frequency (min): 1-6 (08/27/2016 21:30:Radha Kahlilman, RN) Frequency (min): 1-5 (08/27/2016 21:00:Radha Kahlilman, RN) Frequency (min): 2-5 (08/27/2016 20:45:Armida Tari, RN) Frequency (min): 2-6 (08/27/2016 20:15:Armida Tari, RN) Frequency (min): 2.5-4 (08/27/2016 19:45:Jesica Sam, RN) Frequency (min): 3-10 (08/27/2016 19:07:Daria Bellavance, RNC) Frequency (min): 4-8 (08/27/2016 18:32:Daria Bellavance, RNC) Frequency (min): 5-8 (08/27/2016 18:00:Daria Bellavance, RNC) Frequency (min): 3-8 (08/27/2016 17:33:Daria Bellavance, RNC) Frequency (min): rare (08/27/2016 11:00:Daria Bellavance, RNC) Frequency (min): rare (08/27/2016 10:30:Daria Bellavance, RNC) Frequency (min): rare (08/27/2016 10:00:Daria Bellavance, RNC) Frequency (min): rare (08/27/2016 09:10:Daria Bellavance, RNC) Frequency (min): rare (08/27/2016 08:35:Daria Bellavance, RNC) Frequency (min): rare (08/27/2016 08:07:Daria Bellavance, RNC) Frequency (min): occassional (08/27/2016 07:28:Daria Bellavance, RNC) Frequency (min): 1 (08/27/2016 07:10:Crystal Wallace, RN) Frequency (min): 8.5 (08/27/2016 06:38:Crystal Ermelinda, RN) Duration (sec): 50-80 (08/28/2016 04:30:Jesica Sam, RN) Duration (sec): 40-120 (08/28/2016 04:00:Jesica Sam, RN) Duration (sec): 40-90 (08/28/2016 03:30:Jesica Sam, RN) Duration (sec): 50-70 (08/28/2016 03:00:Jesica Sam, RN) Duration (sec): 40-90 (08/28/2016 02:30:Jesica Sam, RN) Duration (sec): 60 (08/28/2016 02:00:Jesica Sam, RN) Duration (sec): 40-50 (08/28/2016 01:30:Jesica Sam, RN) Duration (sec): 40-130 (08/28/2016 01:00:Jesica Sam, RN) Duration (sec): 40-100 (08/28/2016 00:30:Jesica Sam, RN) Duration (sec): 40-100 (08/28/2016 00:00:Jesica Sam, RN) Duration (sec): 50-110 (08/27/2016 23:30:Jesica Sam, RN) Duration (sec): 50-90 (08/27/2016 23:00:Jesica Sam, RN) Duration (sec): 40-90 (08/27/2016 22:30:Jesica Sam, RN) Duration (sec): 50-90 (08/27/2016 22:00:Jesica Sam, RN) Duration (sec): 40-100 (08/27/2016 21:30:Radha Thacker RN) Duration (sec): 60-110 (08/27/2016 21:00:Radha Thacker RN) Duration (sec): 60-70 (08/27/2016 20:45:Armida Marc RN) Duration (sec): 50-80 (08/27/2016 20:15:Armida Macr RN) Duration (sec): 60-90 (08/27/2016 19:45:Jesica Vargas, RN) Duration (sec): 50-90 (08/27/2016 19:07:Daria Bellavance, RNC) Duration (sec): 60-90 (08/27/2016 18:32:Daria Bellavance, RNC) Duration (sec): 60-110 (08/27/2016 18:00:Daria Bellavance, RNC) Duration (sec): 50-90 (08/27/2016 17:33:Daria Bellavance, RNC) Duration (sec): 90 (08/27/2016 11:00:Daria Bellavance, RNC) Duration (sec): 90 (08/27/2016 10:30:Daria Bellavance, RNC) Duration (sec): 90 (08/27/2016 10:00:Daria Bellavance, RNC) Duration (sec): 90 (08/27/2016 09:10:Daria Bellavance, RNC) Duration (sec): 90 (08/27/2016 08:35:Daria Bellavance, RNC) Duration (sec): 90 (08/27/2016 08:07:Daria Bellavance, RNC) Duration (sec): 70 (08/27/2016 07:28:Daria Bellavance, RNC) Duration (sec): 60 (08/27/2016 07:10:Imani Wadsworth RN) Duration (sec): 90-110 (08/27/2016 06:38:Imani Wadsworth RN) Quality: Mild (08/28/2016 04:30:Jesica Vargas RN) Quality: Mild (08/28/2016 04:00:Jesica Vragas RN) Quality: Mild (08/28/2016 03:30:Jesica Vargas RN) Quality: Mild (08/28/2016 03:00:Jesica Vargas RN) Quality: Mild (08/28/2016 02:30:Jesica Vargas RN) Quality: Mild (08/28/2016 02:00:Jesica Sam, RN) Quality: Mild (08/28/2016 01:30:Jesica Sam, RN) Quality: Mild (08/28/2016 01:00:Jesica Sam, RN) Quality: Mild (08/28/2016 00:30:Jesica Sam, RN) Quality: Mild (08/28/2016 00:00:Jesica Sam, RN) Quality: Mild (08/27/2016 23:30:Jesica Sam, RN) Quality: Mild (08/27/2016 23:00:Jesica Sam, RN) Quality: Mild (08/27/2016 22:30:Jesica Sam, RN) Quality: Mild (08/27/2016 22:00:Jesica Sam, RN) Quality: Mild (08/27/2016 21:30:Radha Thacker RN) Quality: Mild (08/27/2016 21:00:Radha Thacker RN) Quality: Mild (08/27/2016 20:45:Armida Marc RN) Quality: Mild (08/27/2016 20:15:Armida Marc RN) Quality: Mild (08/27/2016 19:45:Jesica Vargas, RN) Quality: Mild (08/27/2016 19:07:Daria Bellavance, RNC) Quality: Mild (08/27/2016 18:32:Daria Bellavance, RNC) Quality: Mild (08/27/2016 18:00:Daria Bellavance, RNC) Quality: Mild (08/27/2016 17:33:Daria Bellavance, RNC) Quality: Mild (08/27/2016 11:00:Daria Bellavance, RNC) Quality: Mild (08/27/2016 10:30:Daria Bellavance, RNC) Quality: Mild (08/27/2016 10:00:Daria Bellavance, RNC) Quality: Mild (08/27/2016 09:10:Daria Bellavance, RNC) Quality: Mild (08/27/2016 08:35:Daria Bellavance, RNC) Quality: Mild (08/27/2016 08:07:Daria Bellavance, RNC) Quality: Mild (08/27/2016 07:28:Daria Araujo, RNC) Quality: Mild (08/27/2016 07:10:Crystal Wallace, RN) Quality: Mild (08/27/2016 06:38:Crystal Ermelinda, RN) Pattern: Normal: <= 5 Contractions in 10 Minutes (08/28/2016 04:30:Jesica Sam, RN) Pattern: Normal: <= 5 Contractions in 10 Minutes (08/28/2016 04:00:Jesica Sam, RN) Pattern: Normal: <= 5 Contractions in 10 Minutes (08/28/2016 03:30:Jesica Sam, RN) Pattern: Normal: <= 5 Contractions in 10 Minutes (08/28/2016 03:00:Jesica Sam, RN) Pattern: Normal: <= 5 Contractions in 10 Minutes (08/28/2016 02:30:Jesica Sam, RN) Pattern: Normal: <= 5 Contractions in 10 Minutes (08/28/2016 02:00:Jesica Sam, RN) Pattern: Normal: <= 5 Contractions in 10 Minutes (08/28/2016 01:30:Jesica Sam, RN) Pattern: Normal: <= 5 Contractions in 10 Minutes (08/28/2016 01:00:Jesica Sam, RN) Pattern: Normal: <= 5 Contractions in 10 Minutes (08/28/2016 00:30:Jesica Sam, RN) Pattern: Normal: <= 5 Contractions in 10 Minutes (08/28/2016 00:00:Jesica Sam, RN) Pattern: Normal: <= 5 Contractions in 10 Minutes (08/27/2016 23:30:Jesica Sam, RN) Pattern: Normal: <= 5 Contractions in 10 Minutes (08/27/2016 23:00:Jesica Sam, RN) Pattern: Normal: <= 5 Contractions in 10 Minutes (08/27/2016 22:30:Jesica Sam, RN) Pattern: Normal: <= 5 Contractions in 10 Minutes (08/27/2016 22:00:Jesica Sam, RN) Pattern: Normal: <= 5 Contractions in 10 Minutes (08/27/2016 21:30:Radha Thacker RN) Pattern: Normal: <= 5 Contractions in 10 Minutes (08/27/2016 21:00:Radha Thacker RN) Pattern: Normal: <= 5 Contractions in 10 Minutes (08/27/2016 20:45:Armida Marc RN) Pattern: Normal: <= 5 Contractions in 10 Minutes (08/27/2016 20:15:Armida Marc RN) Pattern: Normal: <= 5 Contractions in 10 Minutes (08/27/2016 19:45:Jesica Vargas RN) Pattern: Normal: <= 5 Contractions in 10 Minutes (08/27/2016 19:07:Daria Bellavance, RNC) Pattern: Normal: <= 5 Contractions in 10 Minutes (08/27/2016 18:32:Daria Bellavance, RNC) Pattern: Normal: <= 5 Contractions in 10 Minutes (08/27/2016 18:00:Daria Bellavance, RNC) Pattern: Normal: <= 5 Contractions in 10 Minutes (08/27/2016 17:33:Daria Bellavance, RNC) Pattern: Normal: <= 5 Contractions in 10 Minutes (08/27/2016 11:00:Daria Bellavance, RNC) Pattern: Normal: <= 5 Contractions in 10 Minutes (08/27/2016 10:30:Daria Bellavance, RNC) Pattern: Normal: <= 5 Contractions in 10 Minutes (08/27/2016 10:00:Daria Bellavance, RNC) Pattern: Normal: <= 5 Contractions in 10 Minutes (08/27/2016 09:10:Daria Bellavance, RNC) Pattern: Normal: <= 5 Contractions in 10 Minutes (08/27/2016 08:35:Daria Bellavance, RNC) Pattern: Normal: <= 5 Contractions in 10 Minutes (08/27/2016 08:07:Daria Bellavance, RNC) Pattern: Normal: <= 5 Contractions in 10 Minutes (08/27/2016 07:28:Daria Bellavance, RNC) Resting Tone [place]: Relaxed (08/28/2016 04:30:Jesica Vargas RN) Resting Tone [place]: Relaxed (08/28/2016 04:00:Jesica Sam, RN) Resting Tone [place]: Relaxed (08/28/2016 03:30:Jesica Sam, RN) Resting Tone [place]: Relaxed (08/28/2016 03:00:Jesica Sam, RN) Resting Tone [place]: Relaxed (08/28/2016 02:30:Jesica Sam, RN) Resting Tone [place]: Relaxed (08/28/2016 02:00:Jesica Sam, RN) Resting Tone [place]: Relaxed (08/28/2016 01:30:Jesica Sam, RN) Resting Tone [place]: Relaxed (08/28/2016 01:00:Jesica Sam, RN) Resting Tone [place]: Relaxed (08/28/2016 00:30:Jesica Sam, RN) Resting Tone [place]: Relaxed (08/28/2016 00:00:Jesica Sam, RN) Resting Tone [place]: Relaxed (08/27/2016 23:30:Jesica Sam, RN) Resting Tone [place]: Relaxed (08/27/2016 23:00:Jesica Sam, RN) Resting Tone [place]: Relaxed (08/27/2016 22:30:Jesica Sam, RN) Resting Tone [place]: Relaxed (08/27/2016 22:00:Jesica Sam, RN) Resting Tone [place]: Relaxed (08/27/2016 21:30:Radha Chalman, RN) Resting Tone [place]: Relaxed (08/27/2016 21:00:Radha Chalman, RN) Resting Tone [place]: Relaxed (08/27/2016 20:45:Armidamily Marc, RN) Resting Tone [place]: Relaxed (08/27/2016 20:15:Armida Marc, RN) Resting Tone [place]: Relaxed (08/27/2016 19:45:Jesica Sam, RN) Resting Tone [place]: Relaxed (08/27/2016 19:07:Daria Araujo RNC) Resting Tone [place]: Relaxed (08/27/2016 18:32:Daria Araujo, RNC) Resting Tone [place]: Relaxed (08/27/2016 18:00:Daria Araujo RNC) Resting Tone [place]: Relaxed (08/27/2016 17:33:KHARI Black) Resting Tone [place]: Relaxed (08/27/2016 07:28:KHARI Black) Resting Tone [place]: Relaxed (08/27/2016 07:10:Imani Wadsworth RN) Resting Tone [place]: Relaxed (08/27/2016 06:38:Imani Wadsworth RN) Contraction Comments: irritability noted (08/28/2016 04:30:Jesica Vargas RN) Contraction Comments: irritability noted (08/28/2016 04:00:Jesica Vargas RN) Contraction Comments: irritability noted, pt. states she feels as if her ctn's have worn off (08/28/2016 02:00:Jesica Vargas RN) Contraction Comments: Pt states that u/c's are not anymore painful than they were this morning. States once she settles in bed, they are not as bad. (08/27/2016 21:16:Armida Marc RN) VAGINAL EXAM Dilatation (cm): 3.0 (08/27/2016 19:07:KHARI Black) Dilatation (cm): 3.0 (08/27/2016 06:07:Armida Marc RN) Effacement (%): 80 (08/27/2016 19:07:KHARI Black) Effacement (%): 80 (08/27/2016 06:07:Armida Marc RN) Station: -2 (08/27/2016 19:07:KHARI Black) Station: -1 (08/27/2016 06:07:Armida Marc RN) Membranes Status: Intact (08/27/2016 19:07:KHARI Black) NEURO Level of Consciousness: Fully Conscious (08/27/2016 19:25:Jesica Vargas RN) Level of Consciousness: Fully Conscious (08/27/2016 07:28:KHARI Black) DTR's/Clonus: DTRs 2+; No Clonus (08/27/2016 19:25:Jesica Vargas RN) DTR's/Clonus: DTRs 2+; No Clonus (08/27/2016 07:28:KHARI Black) Headache: Denies (Annotations: pt. states that she has had a generalized [place] all day, has not eaten dinner due to reflux. Crackers and peanut butter provided to pt. at this time) (08/27/2016 19:25:Jesica Vargas RN) Headache: Denies (08/27/2016 07:28:KHARI Black) Dizziness: No (08/27/2016 19:25:Jesica Vargas RN) Dizziness: No (08/27/2016 07:28:KHARI Black) Blurred Vision: No (08/27/2016 19:25:Jesica Vargas RN) Blurred Vision: No (08/27/2016 07:28:KHARI Black) Extremity Numbness/Tingling : None (08/27/2016 19:25:Jesica Vargas RN) Extremity Numbness/Tingling : None (08/27/2016 07:28:KHARI Black) Extremity Movement: Full Range of Motion (08/27/2016 19:25:Jesica Vargas RN) Extremity Movement: Full Range of Motion (08/27/2016 07:28:KHARI Black) CARDIOVASCULAR Heart Rhythm: Regular (08/27/2016 19:25:Jesica Vargas RN) Heart Rhythm: Regular (08/27/2016 05:31:Imani Wadsworth RN) Nailbeds: [place] (08/27/2016 19:25:Jesica Vargas RN) Nailbeds: [place] (08/27/2016 07:28:KHARI Black) Nailbeds: [place] (08/27/2016 05:31:Imani Wadsworth RN) Capillary Refill: Less than 3 Seconds; Greater Than 3 Seconds (08/27/2016 19:25:Jesica Vargas RN) Capillary Refill: Less than 3 Seconds (08/27/2016 07:28:KHARI Black) Capillary Refill: Less than 3 Seconds (08/27/2016 05:31:Imani Wadsworth RN) Lower Extremities Edema: None (08/27/2016 19:25:Jesica Vargas RN) Lower Extremities Edema Degree: None (08/27/2016 19:25:Jesica Vargas RN) Lower Extremities Edema Degree: None (08/27/2016 05:31:Imani Wadsworth RN) Upper Extremities Edema: None (08/27/2016 19:25:Jesica Vargas RN) Upper Extremities Edema: None (08/27/2016 05:31:Imani Wadsworth RN) Upper Extremities Edema Degree: None (08/27/2016 19:25:Jesica Vargas RN) Upper Extremities Edema Degree: None (08/27/2016 05:31:Imani Wadsworth RN) Facial Edema: None (08/27/2016 19:25:Jesica Vargas RN) Facial Edema: None (08/27/2016 07:28:KHARI Black) Facial Edema: None (08/27/2016 05:31:Imani Wadsworth RN) Rachana's Sign Left Leg: Negative (08/27/2016 19:25:Jesica Vargas RN) Rachana's Sign Left Leg: Negative (08/27/2016 07:28:KHARI Black) Rachana's Sign Left Leg: Negative (08/27/2016 05:31:Imani Wadsworth RN) Rachana's Sign Right Leg: Negative (08/27/2016 19:25:Jesica Vargas RN) Rachana's Sign Right Leg: Negative (08/27/2016 07:28:KHARI Black) Rachana's Sign Right Leg: Negative (08/27/2016 05:31:Imani Wadsworth RN) DVT RISK ASSESSMENT DVT Risk Age: Age less than 41 years (08/27/2016 19:25:Jesica Vargas RN) DVT Risk Age: Age less than 41 years (08/27/2016 05:31:Imani Wadsworth RN) DVT Risk BMI: BMI<31 (08/27/2016 05:31:Imani Wadsworth RN) DVT Risk Surgery: None Applicable (08/27/2016 05:31:Imani Wadsworth RN) DVT Risk Other: None Applicable (08/27/2016 05:31:Imani Wadsworth RN) DVT Risk Total: 0 (08/27/2016 05:31:QS system process) DVT Risk Text: Low Risk (<10%) No specific measures, early ambulation (08/27/2016 05:31:QS system process) RESPIRATORY Respiratory Effort: Unlabored; Regular Rhythm (08/27/2016 19:25:Jesica Vargas RN) Respiratory Effort: Unlabored; Regular Rhythm; Equal Expansion (08/27/2016 07:28:KHARI Black) Respiratory Effort: Unlabored; Regular Rhythm; Equal Expansion (08/27/2016 05:31:Imani Wadsworth RN) Breath Sounds, Left: Clear and Equal (08/27/2016 19:25:Jesica Vargas RN) Breath Sounds, Left: Clear and Equal (08/27/2016 07:28:KHARI Black) Breath Sounds, Left: Clear and Equal (08/27/2016 05:31:Imani Wadsworth RN) Breath Sounds, Right: Clear and Equal (08/27/2016 19:25:Jesica Vargas RN) Breath Sounds, Right: Clear and Equal (08/27/2016 07:28:KHARI Black) Breath Sounds, Right: Clear and Equal (08/27/2016 05:31:Imani Wadsworth RN) Cough Productivity: None (08/27/2016 19:25:Jesica Vargas RN) Cough Productivity: None (08/27/2016 07:28:KHARI Black) Cough Productivity: None (08/27/2016 05:31:Imani Wadsworth RN) GASTROINTESTINAL Nausea/Vomiting: Denies (08/27/2016 19:25:Jesica Vargas RN) Nausea/Vomiting: Denies (08/27/2016 07:28:KHARI Black) Nausea/Vomiting: Denies (08/27/2016 05:31:Imani Wadsworth RN) Bowel Sounds: Normoactive (08/27/2016 19:25:Jesica Vargas RN) Bowel Sounds: Normoactive; All Quadrants (08/27/2016 07:28:KHARI Black) Bowel Sounds: Normoactive (08/27/2016 05:31:Imani Wadsworth RN) RUQ Epigastric Pain: Denies (08/27/2016 19:25:Jesica Vargas RN) RUQ Epigastric Pain: Denies (08/27/2016 07:28:KHARI Black) RUQ Epigastric Pain: Present (08/27/2016 05:31:Imani Wadsworth RN) Response to Antacids: Pain Relieved (08/27/2016 05:31:Imani Wadsworth RN) Bowel Patterns: Soft, Formed Stool (08/27/2016 19:25:Jesica Vargas RN) Bowel Patterns: Soft, Formed Stool (08/27/2016 05:31:Imani Wadsworth RN) Hemorrhoids: None (08/27/2016 19:25:Jesica Vargas RN) Hemorrhoids: Present; Inflamed (08/27/2016 05:31:Imani Wadsworth RN) Diet Type: Regular diet (08/27/2016 19:25:Jesica Vargas RN) Diet Type: Regular diet (08/27/2016 05:31:Imani Wadsworth RN) Last Meal: 08/27/2016 05:00 (08/27/2016 05:31:Imani Wadsworth RN) GENITOURINARY Bladder: Nondistended (08/27/2016 19:25:Jesica Vargas RN) Bladder: Nondistended (08/27/2016 07:28:KHARI Black) Frequency of Urination: No (08/27/2016 19:25:Jesica Vargas RN) Frequency of Urination: No (08/27/2016 07:28:KHARI Black) Urination Burning: No (08/27/2016 19:25:Jesica Vargas RN) Urination Burning: No (08/27/2016 07:28:KHARI Black) CVA Tenderness: No (08/27/2016 19:25:Jesica Vargas RN) CVA Tenderness: No (08/27/2016 07:28:KHARI Black) Vaginal Bleeding: None (08/27/2016 05:31:Imani Wadsworth RN) Vaginal Discharge Amount: Small (08/27/2016 19:25:Jesica Vargas RN) Vaginal Discharge Amount: Small (08/27/2016 05:31:Imani Wadsworth RN) Vaginal Discharge Color: White (08/27/2016 19:25:Jesica Vargas RN) Vaginal Discharge Color: N/A (08/27/2016 07:28:KHARI Black) Vaginal Discharge Color: White (08/27/2016 05:31:Imani Wadsworth RN) Vaginal Discharge Odor: Non-Odorous (08/27/2016 19:25:Jesica Vargas RN) Vaginal Discharge Odor: Non-Odorous (08/27/2016 05:31:Imani Wadsworth RN) Vaginal Discharge Character: Thin (08/27/2016 19:25:Jesica Vargas RN) Vaginal Discharge Character: Thin (08/27/2016 05:31:Imani Wadsworth RN) INTEGUMENTARY Skin Color: Normal for Race (08/27/2016 19:25:Jesica Vargas RN) Skin Color: Normal for Race (08/27/2016 07:28:KHARI Black) Skin Color: Normal for Race (08/27/2016 05:31:Imani Wadsworth RN) Skin Temperature: Warm (08/27/2016 19:25:Jesica Vargas RN) Skin Temperature: Warm (08/27/2016 07:28:KHARI Black) Skin Temperature: Warm (08/27/2016 05:31:Imani Wadsworth RN) Skin Moisture: Dry (08/27/2016 19:25:Jesica Vargas RN) Skin Moisture: Dry (08/27/2016 07:28:KHARI Black) Skin Moisture: Dry (08/27/2016 05:31:Imani Wadsworth RN) SLIME SKIN ASSESSMENT Slime Scale Sensory Perception: No Impairment- Responds to verbal commands. Has no sensory deficit which would limit ability to feel or voice pain or discomfort (08/27/2016 19:25:Jesica Vargas RN) Slime Scale Sensory Perception: No Impairment- Responds to verbal commands. Has no sensory deficit which would limit ability to feel or voice pain or discomfort (08/27/2016 07:28:KHARI Black) Slime Scale Sensory Perception: No Impairment- Responds to verbal commands. Has no sensory deficit which would limit ability to feel or voice pain or discomfort (08/27/2016 05:31:Imani Wadsworth RN) Slime Scale Moisture: Rarely Moist- Skin is usually dry. Linen only requires changing at routine intervals (08/27/2016 19:25:Jesica Vargas RN) Slime Scale Moisture: Rarely Moist- Skin is usually dry. Linen only requires changing at routine intervals (08/27/2016 07:28:KHARI Black) Slime Scale Moisture: Rarely Moist- Skin is usually dry. Linen only requires changing at routine intervals (08/27/2016 05:31:Imani Wadsworth RN) Slime Scale Activity: Walks Frequently- Walks outside the room at least twice a day and inside room at least every 2 hours during the day. (08/27/2016 19:25:Jesica Vargas RN) Slime Scale Activity: Walks Frequently- Walks outside the room at least twice a day and inside room at least every 2 hours during the day. (08/27/2016 07:28:KHARI Black) Slime Scale Activity: Walks Frequently- Walks outside the room at least twice a day and inside room at least every 2 hours during the day. (08/27/2016 05:31:Imani Wadsworth RN) Slime Scale Mobility: No Limitations- Makes major and frequent changes in position without assistance (08/27/2016 19:25:Jesica Vargas RN) Slime Scale Mobility: No Limitations- Makes major and frequent changes in position without assistance (08/27/2016 07:28:KHARI Black) Slime Scale Mobility: No Limitations- Makes major and frequent changes in position without assistance (08/27/2016 05:31:Imani Wadsworth RN) Slime Scale Nutrition: Excellent- Eats most of every meal. Never refuses a meal. Usually eats a total of 4 or more servings of meat and dairy products. Occasionally eats between meals. Does not require supplementation (08/27/2016 19:25:Jesica Vargas RN) Slime Scale Nutrition: Excellent- Eats most of every meal. Never refuses a meal. Usually eats a total of 4 or more servings of meat and dairy products. Occasionally eats between meals. Does not require supplementation (08/27/2016 07:28:KHARI Black) Slime Scale Nutrition: Excellent- Eats most of every meal. Never refuses a meal. Usually eats a total of 4 or more servings of meat and dairy products. Occasionally eats between meals. Does not require supplementation (08/27/2016 05:31:Imani Wadsworth RN) Slime Scale Friction and Shear: No Apparent Problem- Moves in bed and in chair independently and has sufficient muscle strength to lift up completely during move. Maintains good position in bed or chair at all times (08/27/2016 19:25:Jesica Vargas RN) Slime Scale Friction and Shear: No Apparent Problem- Moves in bed and in chair independently and has sufficient muscle strength to lift up completely during move. Maintains good position in bed or chair at all times (08/27/2016 07:28:KHARI Black) Slime Scale Friction and Shear: No Apparent Problem- Moves in bed and in chair independently and has sufficient muscle strength to lift up completely during move. Maintains good position in bed or chair at all times (08/27/2016 05:31:Imani Wadsworth RN) Slime Scale Total: 23 (08/27/2016 19:25:QS system process) Slime Scale Total: 23 (08/27/2016 07:28:QS system process) Slime Scale Total: 23 (08/27/2016 05:31:QS system process) Slime Scale Risk: No Risk of Pressure Ulcer Noted at this Time (08/27/2016 19:25:QS system process) Slime Scale Risk: No Risk of Pressure Ulcer Noted at this Time (08/27/2016 07:28:QS system process) Slime Scale Risk: No Risk of Pressure Ulcer Noted at this Time (08/27/2016 05:31:QS system process) SUPPORT Family Support: Significant Other supportive, at bedside frequently (08/27/2016 05:31:Imani Wadsworth RN) Emotional State: Calm/Relaxed (08/27/2016 05:31:Imani Wadsworth RN) SAFETY Call Forrester Within Reach: Yes (08/27/2016 19:25:Jesica Vargas RN) Call Forrester Within Reach: Yes (08/27/2016 07:28:KHARI Black) Call Forrester Within Reach: Yes (08/27/2016 05:31:Imani aWdsworth RN) Side Rails Up: Yes (08/27/2016 19:25:Jesica Vargas RN) Side Rails Up: Yes (08/27/2016 07:28:KHARI Black) Side Rails Up: Yes (08/27/2016 05:31:Imani Wadsworth RN) Bed Wheels Locked: Yes (08/27/2016 19:25:Jesica Vargas RN) Bed Wheels Locked: Yes (08/27/2016 07:28:KHARI Black) Bed Wheels Locked: Yes (08/27/2016 05:31:Imani Wadsworth RN) Arm Bands Present: Yes (08/27/2016 19:25:Jesica Vargas RN) Arm Bands Present: Yes (08/27/2016 07:28:KHARI Black) Arm Bands Present: Yes (08/27/2016 05:31:Imani Wadsworth RN) Isolation: [place] (08/27/2016 19:25:Jesica Vargas RN) Isolation: [place] (08/27/2016 05:31:Imani Wadsworth RN) FALL SCREEN Fall Risk History of Falling: (0) No (08/27/2016 19:25:Jesica Vargas RN) Fall Risk History of Falling: (0) No (08/27/2016 07:28:KHARI Black) Fall Risk History of Falling: (0) No (08/27/2016 05:31:Imani Wadswotrh RN) Fall Risk Secondary Diagnosis: (0) No (08/27/2016 19:25:Jesica Vargas RN) Fall Risk Secondary Diagnosis: (0) No (08/27/2016 07:28:KHARI Black) Fall Risk Secondary Diagnosis: (0) No (08/27/2016 05:31:Imani Wadsworth RN) Fall Risk Ambulatory Aid: (0) None/Bedrest/Wheelchair/Nurse Assist (08/27/2016 19:25:Jesica Vargas RN) Fall Risk Ambulatory Aid: (0) None/Bedrest/Wheelchair/Nurse Assist (08/27/2016 07:28:KHARI Black) Fall Risk Ambulatory Aid: (0) None/Bedrest/Wheelchair/Nurse Assist (08/27/2016 05:31:Imani Wadsworth RN) Fall Risk IV Therapy: (0) No (08/27/2016 19:25:Jesica Vargas RN) Fall Risk IV Therapy: (0) No (08/27/2016 07:28:KHARI Black) Fall Risk IV Therapy: (0) No (08/27/2016 05:31:Imani Wadsworth RN) Fall Risk Gait: (0) Normal/Bedrest/Immobile (08/27/2016 19:25:Jesica Vargas RN) Fall Risk Gait: (0) Normal/Bedrest/Immobile (08/27/2016 07:28:KHARI Black) Fall Risk Gait: (0) Normal/Bedrest/Immobile (08/27/2016 05:31:Imani Wadsworth RN) Fall Risk Mental Status: (0) Oriented to Own Ability (08/27/2016 19:25:Jesica Vargas RN) Fall Risk Mental Status: (0) Oriented to Own Ability (08/27/2016 07:28:KHARI Black) Fall Risk Mental Status: (0) Oriented to Own Ability (08/27/2016 05:31:Imani Wadsworth RN) Fall Risk Score: 0 (08/27/2016 19:25:QS system process) Fall Risk Score: 0 (08/27/2016 07:28:QS system process) Fall Risk Score: 0 (08/27/2016 05:31:QS system process) Fall Risk Score Definition: No Risk: No action required (08/27/2016 19:25:QS system process) Fall Risk Score Definition: No Risk: No action required (08/27/2016 07:28:QS system process) Fall Risk Score Definition: No Risk: No action required (08/27/2016 05:31:QS system process) RECENT TRAVEL/INFECTIOUS DISEASE Recent Exp Communicable Disease: No (08/27/2016 19:25:Jesica Vargas RN) Recent Exp Communicable Disease: No (08/27/2016 05:31:Imani Wadsworth RN) Cough or Fever: No (08/27/2016 19:25:Jesica Vargas RN) Cough or Fever: No (08/27/2016 05:31:Imani Wadsworth RN) Foreign Travel Past 10 Days: No (08/27/2016 19:25:Jesica Vargas RN) Foreign Travel Past 10 Days: No (08/27/2016 05:31:Imani Wadsworth RN) Open Wounds or Sores: No (08/27/2016 19:25:Jesica Vargas RN) Open Wounds or Sores: No (08/27/2016 05:31:Imani Wadsworth RN) Prior Antibiotic Resistance Tx: No (08/27/2016 19:25:Jesica Vargas RN) Prior Antibiotic Resistance Tx: No (08/27/2016 05:31:Imani Wadsworth RN) Cultures Obtained: Not Applicable (08/27/2016 19:25:Jesica Vargas RN) Cultures Obtained: Not Applicable (08/27/2016 05:31:Imani Wadsworth RN) Isolation Initiated: No (08/27/2016 19:25:Jesica Vargas RN) Isolation Initiated: No (08/27/2016 05:31:Imani Wadsworth RN) Pt/Family Education: Not Applicable (08/27/2016 19:25:Jesica Vargas RN) Pt/Family Education: Not Applicable (08/27/2016 05:31:Imani Wadsworth RN) BABY A FHR Baseline Rate (bpm) Baby A: 130 (08/27/2016 20:22:Jesica Vargas RN) FHR Baseline Rate (bpm) Baby A: 130 (08/27/2016 20:15:Armida Marc RN) FHR Baseline Rate (bpm) Baby A: 150 (08/27/2016 11:00:KHAIR Black) FHR Baseline Rate (bpm) Baby A: 150 (08/27/2016 10:30:KHARI Black) FHR Baseline Rate (bpm) Baby A: 150 (08/27/2016 10:00:KHARI Black) FHR Baseline Rate (bpm) Baby A: 150 (08/27/2016 09:10:Daria Bellavance, RNC) FHR Baseline Rate (bpm) Baby A: 150 (08/27/2016 08:35:Dariamily Ageence, RNC) FHR Baseline Rate (bpm) Baby A: 150 (08/27/2016 08:07:Daria Mitzyavance, RNC) FHR Baseline Rate (bpm) Baby A: 130 (08/27/2016 07:28:Daria Ageence, RNC) FHR Baseline Rate (bpm) Baby A: 140 (08/27/2016 06:38:Imani Wadsworth RN) FHR Baseline Rate (bpm) Baby A: 125 (08/27/2016 05:43:Imani Wadsworth RN) Variability Baby A: Moderate 6-25 bpm (08/27/2016 20:22:Jesica Vargas RN) Variability Baby A: Moderate 6-25 bpm (08/27/2016 20:15:Jesica Vargas RN) Variability Baby A: Moderate 6-25 bpm (08/27/2016 20:15:Armida Marc RN) Variability Baby A: Moderate 6-25 bpm (08/27/2016 11:00:Daria Ageence, RNC) Variability Baby A: Moderate 6-25 bpm (08/27/2016 10:30:Daria Bellavance, RNC) Variability Baby A: Moderate 6-25 bpm (08/27/2016 10:00:Daria Mitzyavance, RNC) Variability Baby A: Moderate 6-25 bpm (08/27/2016 09:10:Daria Mitzyavance, RNC) Variability Baby A: Moderate 6-25 bpm (08/27/2016 08:35:Daria Mitzyavance, RNC) Variability Baby A: Moderate 6-25 bpm (08/27/2016 08:07:Daria Anuelnce, RNC) Variability Baby A: Moderate 6-25 bpm (08/27/2016 07:28:Daria Anuelnce, RNC) Variability Baby A: Moderate 6-25 bpm (08/27/2016 06:38:Imani Wadsworth RN) Variability Baby A: Moderate 6-25 bpm (08/27/2016 05:43:Imani Wadsworth RN) Accelerations Baby A: 15X15 (08/27/2016 20:22:Jesica Vargas RN) Accelerations Baby A: 15X15 (08/27/2016 20:15:Jesica Vargas RN) Accelerations Baby A: 15X15 (08/27/2016 20:15:Armida Marc RN) Accelerations Baby A: 15X15 (08/27/2016 11:00:Dariamily Basilioe, RNC) Accelerations Baby A: 15X15 (08/27/2016 10:30:Daria Bellavance, RNC) Accelerations Baby A: 15X15 (08/27/2016 10:00:Daria Bellavance, RNC) Accelerations Baby A: 15X15 (08/27/2016 09:10:Daria Bellavance, RNC) Accelerations Baby A: 15X15 (08/27/2016 08:35:Daria Bellnancynce, RNC) Accelerations Baby A: 15X15 (08/27/2016 08:07:Dariamily Ageence, RNC) Accelerations Baby A: 10X10 (08/27/2016 07:28:Dariamily Ageence, RNC) Accelerations Baby A: 15X15 (08/27/2016 06:38:Imani Wadsworth RN) Accelerations Baby A: 15X15 (08/27/2016 05:43:Imani Wadsworth RN) Decelerations Baby A: None (08/27/2016 20:22:Jesica Vargas RN) Decelerations Baby A: None (08/27/2016 20:15:Jesica Vargas RN) Decelerations Baby A: None (08/27/2016 20:15:Armida Marc RN) Decelerations Baby A: None (08/27/2016 11:00:Dariamily Araujo RNC) Decelerations Baby A: None (08/27/2016 10:30:Daria Bellnancynce, RNC) Decelerations Baby A: None (08/27/2016 10:00:Daria Bellnancynce, RNC) Decelerations Baby A: None (08/27/2016 09:10:Daria Bellavance, RNC) Decelerations Baby A: None (08/27/2016 08:35:Daria Araujo RNC) Decelerations Baby A: None (08/27/2016 08:07:Daria Araujo RNCesar) Decelerations Baby A: None (08/27/2016 07:28:Daria Araujo RNC) Decelerations Baby A: None (08/27/2016 07:10:Imani Wadsworth RN) Decelerations Baby A: None (08/27/2016 06:38:Imani Wadsworth RN) Decelerations Baby A: None (08/27/2016 05:43:Imani Wadsworth RN) BABY B FHR Baseline Rate (bpm) Baby B: 125 (08/27/2016 20:22:Jesica Vargas RN) FHR Baseline Rate (bpm) Baby B: 135 (08/27/2016 20:15:Armida Marc RN) FHR Baseline Rate (bpm) Baby B: 135 (08/27/2016 11:00:Daria Araujo RNC) FHR Baseline Rate (bpm) Baby B: 135 (08/27/2016 10:30:Daria Araujo RNC) FHR Baseline Rate (bpm) Baby B: 135 (08/27/2016 10:00:Daria Araujo RNC) FHR Baseline Rate (bpm) Baby B: 135 (08/27/2016 09:10:Daria Araujo RNC) FHR Baseline Rate (bpm) Baby B: 135 (08/27/2016 08:35:Daria Bellavance, RNC) FHR Baseline Rate (bpm) Baby B: 135 (08/27/2016 08:07:Daria Bellavance, RNC) FHR Baseline Rate (bpm) Baby B: 135 (08/27/2016 07:28:Daria Bellavance, RNC) FHR Baseline Rate (bpm) Baby B: 130 (08/27/2016 07:10:Imani Wadsworth RN) FHR Baseline Rate (bpm) Baby B: 140 (08/27/2016 06:38:Imani Wadsworth RN) FHR Baseline Rate (bpm) Baby B: 140 (08/27/2016 05:43:Imani Wadsworth RN) Variability Baby B: Moderate 6-25 bpm (08/27/2016 20:22:Jesica Vargas RN) Variability Baby B: Moderate 6-25 bpm (08/27/2016 20:15:Armida Marc RN) Variability Baby B: Moderate 6-25 bpm (08/27/2016 11:00:Daria Bellavance, RNC) Variability Baby B: Moderate 6-25 bpm (08/27/2016 10:30:Daria Bellavance, RNC) Variability Baby B: Moderate 6-25 bpm (08/27/2016 10:00:Daria Bellavance, RNC) Variability Baby B: Moderate 6-25 bpm (08/27/2016 09:10:Daria Bellavance, RNC) Variability Baby B: Moderate 6-25 bpm (08/27/2016 08:35:Daria Bellavance, RNC) Variability Baby B: Moderate 6-25 bpm (08/27/2016 08:07:Daria Bellavance, RNC) Variability Baby B: Moderate 6-25 bpm (08/27/2016 07:28:Daria Bellavance, RNC) Variability Baby B: Moderate 6-25 bpm (08/27/2016 07:10:Imani Wadsworth RN) Variability Baby B: Moderate 6-25 bpm (08/27/2016 06:38:Imani Wadsworth RN) Variability Baby B: Moderate 6-25 bpm (08/27/2016 05:43:Imani Wadsworth RN) Accelerations Baby B: 15X15 (08/27/2016 20:22:Jesica Vargas RN) Accelerations Baby B: 15X15 (08/27/2016 20:15:Armida Marc RN) Accelerations Baby B: 15X15 (08/27/2016 11:00:Daria Bellnancynce, RNC) Accelerations Baby B: 15X15 (08/27/2016 10:30:Daria Bellavance, RNC) Accelerations Baby B: 15X15 (08/27/2016 10:00:Daria Bellavance, RNC) Accelerations Baby B: 15X15 (08/27/2016 09:10:Daria Bellavance, RNC) Accelerations Baby B: 15X15 (08/27/2016 08:35:Daria Bellavance, RNC) Accelerations Baby B: 15X15 (08/27/2016 08:07:Daria Bellavance, RNC) Accelerations Baby B: 10X10 (08/27/2016 07:28:Daria Bellnancynce, RNC) Accelerations Baby B: 15X15 (08/27/2016 07:10:Imani Wadsworth RN) Accelerations Baby B: None (08/27/2016 06:38:Imani Wadsworth RN) Accelerations Baby B: 15X15 (08/27/2016 05:43:Imani Wadsworth RN) Decelerations Baby B: None (08/27/2016 20:22:Jesica Vargas RN) Decelerations Baby B: None (08/27/2016 20:15:Armida Marc RN) Decelerations Baby B: None (08/27/2016 11:00:Daria Bellnancynce, RNC) Decelerations Baby B: None (08/27/2016 10:30:Daria Bellavance, RNC) Decelerations Baby B: None (08/27/2016 10:00:Daria Bellavance, RNC) Decelerations Baby B: None (08/27/2016 09:10:Daria Bellavance, RNC) Decelerations Baby B: None (08/27/2016 08:35:Daria Bellavance, RNC) Decelerations Baby B: None (08/27/2016 08:07:KHARI Black) Decelerations Baby B: None (08/27/2016 07:28:KHARI Black) Decelerations Baby B: None (08/27/2016 07:10:Imani Wadsworth RN) Decelerations Baby B: None (08/27/2016 06:38:Imani Wadsworth RN) Decelerations Baby B: None (08/27/2016 05:43:Imani Wadsworth RN) Category Baby B: Category II (08/27/2016 08:07:KHARI Black) Category Baby B: Category II (08/27/2016 07:28:KHARI Black)
--- NOTE | 2016-08-28 04:48 | L&D Flow Sheet ---
LD Flowsheet Datetime Report Generated by CPN: 08/28/2016 04:45 Datetime: 08/28/2016 04:30 Monitor Mode: External (Jesica Sam, RN) Frequency (min): IREGG (Jesica Sam, RN) Quality: Mild (Jesica Sam, RN) Duration (sec): 50-80 (Jesica Sam, RN) Duration Criteria: Less than Two 120 Second Contractions (Jesica Sam, RN) Pattern: Normal: <= 5 Contractions in 10 Minutes (Jesica Sam, RN) Resting Tone (Palpate): Relaxed (Jesica Sam, RN) Contraction Comments: irritability noted (Jesica Sam, RN) Datetime: 08/28/2016 04:00 Monitor Mode: External (Jesica Sam, RN) Frequency (min): 1.5-7 (Jesica Sam, RN) Quality: Mild (Jesica Sam, RN) Duration (sec): 40-120 (Jesica Sam, RN) Duration Criteria: Less than Two 120 Second Contractions (Jesica Sam, RN) Pattern: Normal: <= 5 Contractions in 10 Minutes (Jesica Sam, RN) Resting Tone (Palpate): Relaxed (Jesica Sam, RN) Contraction Comments: irritability noted (Jesica Sam, RN) Datetime: 08/28/2016 03:30 Monitor Mode: External (Jesica Sam, RN) Frequency (min): 4-7 (Jesica Sam, RN) Quality: Mild (Jesica Sam, RN) Duration (sec): 40-90 (Jesica Sam, RN) Duration Criteria: Less than Two 120 Second Contractions (Jesica Sam, RN) Pattern: Normal: <= 5 Contractions in 10 Minutes (Jesica Sam, RN) Resting Tone (Palpate): Relaxed (Jesica Sam, RN) Datetime: 08/28/2016 03:00 Monitor Mode: External (Jesica Sam, RN) Frequency (min): IREGG (Jesica Sam, RN) Quality: Mild (Jesica Sam, RN) Duration (sec): 50-70 (Jesica Sam, RN) Duration Criteria: Less than Two 120 Second Contractions (Jesica Sam, RN) Pattern: Normal: <= 5 Contractions in 10 Minutes (Jesica Sam, RN) Resting Tone (Palpate): Relaxed (Jesica Sam, RN) Datetime: 08/28/2016 02:30 Monitor Mode: External (Jesica Sam, RN) Frequency (min): x3 (Jesica Sam, RN) Quality: Mild (Jesica Sam, RN) Duration (sec): 40-90 (Jesica Sam, RN) Duration Criteria: Less than Two 120 Second Contractions (Jesica Sam, RN) Pattern: Normal: <= 5 Contractions in 10 Minutes (Jesica Sam, RN) Resting Tone (Palpate): Relaxed (Jesica Sam, RN) Datetime: 08/28/2016 02:00 Monitor Mode: External; Palpation (Jesica Sam, RN) Frequency (min): x1 (Jesica Sam, RN) Quality: Mild (Jesica Sam, RN) Duration (sec): 60 (Jesica Sam, RN) Duration Criteria: Less than Two 120 Second Contractions (Jesica Sam, RN) Pattern: Normal: <= 5 Contractions in 10 Minutes (Jesica Sam, RN) Resting Tone (Palpate): Relaxed (Jesica Sam, RN) Contraction Comments: irritability noted, pt. states she feels as if her ctn's have worn off (Jesica Sam, RN) Datetime: 08/28/2016 01:31 Monitor Interventions for UA: [place] Adjusted (Jesica Sam, RN) Datetime: 08/28/2016 01:30 Monitor Mode: External (Jesica Sam, RN) Frequency (min): OCC (Jesica Sam, RN) Quality: Mild (Jesica Sam, RN) Duration (sec): 40-50 (Jesica Sam, RN) Duration Criteria: Less than Two 120 Second Contractions (Jesica Sam, RN) Pattern: Normal: <= 5 Contractions in 10 Minutes (Jesica Sam, RN) Resting Tone (Palpate): Relaxed (Jesica Sam, RN) Datetime: 08/28/2016 01:00 Monitor Mode: External; Palpation (Jesica Asm, RN) Frequency (min): 4-8 (Jesica Sam, RN) Quality: Mild (Jesica Sam, RN) Duration (sec): 40-130 (Jesica Sam, RN) Duration Criteria: Less than Two 120 Second Contractions (Jesica Sam, RN) Pattern: Normal: <= 5 Contractions in 10 Minutes (Jesica Sam, RN) Resting Tone (Palpate): Relaxed (Jesica Sam, RN) Datetime: 08/28/2016 00:30 Monitor Mode: External (Jesica Sam, RN) Frequency (min): 5.5-6 (Jesica Sam, RN) Quality: Mild (Jesica Sam, RN) Duration (sec): 40-100 (Jesica Sam, RN) Duration Criteria: Less than Two 120 Second Contractions (Jesica Sam, RN) Pattern: Normal: <= 5 Contractions in 10 Minutes (Jesica Sam, RN) Resting Tone (Palpate): Relaxed (Jesica Sam, RN) Datetime: 08/28/2016 00:25 NBP Sys/Monalisa/Mean (mmHg): 118 (QS system process) : 59 (QS system process) : 81 (QS system process) Pulse: 88 (QS system process) Temperature (F): 97.8 (Jesica Sam, RN) Temperature (C): 36.6 (QS system process) Temperature Route: Oral (Jesica Sam, RN) LaborFlag: OB Triage (QS system process) Datetime: 08/28/2016 00:22 Medication Comments: Vistaril 50 mg PO x1 dose (Jesica Sam, RN) IV/Blood Work: IV Infusing per Order; New IV Bag Hung (Jesica Sam, RN) Patient Care Comments: LR at 125 ml/hr (Jesica Sam, RN) Datetime: 08/28/2016 00:00 Monitor Mode: External (Jesica Sam, RN) Frequency (min): 2-7 (Jesica Sam, RN) Quality: Mild (Jesica Sam, RN) Duration (sec): 40-100 (Jesica Sam, RN) Duration Criteria: Less than Two 120 Second Contractions (Jesica Sam, RN) Pattern: Normal: <= 5 Contractions in 10 Minutes (Jesica Sam, RN) Resting Tone (Palpate): Relaxed (Jesica Sam, RN) Datetime: 08/27/2016 23:48 Monitor Interventions for UA: [place] Adjusted (Jesica Sam, RN) Datetime: 08/27/2016 23:43 I/O Interventions: Ice Chips Given; Clear Liquids Given (Jesica Sam, RN) Datetime: 08/27/2016 23:30 Monitor Mode: External; Palpation (Jesica Sam, RN) Frequency (min): 3-6 (Jesica Sam, RN) Quality: Mild (Jesica Sam, RN) Duration (sec): 50-110 (Jesica Sam, RN) Duration Criteria: Less than Two 120 Second Contractions (Jesica Sam, RN) Pattern: Normal: <= 5 Contractions in 10 Minutes (Jesica Sam, RN) Resting Tone (Palpate): Relaxed (Jesica Sam, RN) Datetime: 08/27/2016 23:28 Pain Scale: 2 (Jesica Sam, RN) Pain Assessment Comments: pt. states she doesnt feel her ctn's when she is up, but sh is aware of them when she lays down (Jesica Sam, RN) I/O Interventions: Up to BR (Jesica Sam, RN) LaborFlag: OB Triage (QS system process) Datetime: 08/27/2016 23:00 Monitor Mode: External (Jesica Sam, RN) Frequency (min): 1.5-8 (Jesica Sam, RN) Quality: Mild (Jesica Sam, RN) Duration (sec): 50-90 (Jesica Sam, RN) Duration Criteria: Less than Two 120 Second Contractions (Jesica Sam, RN) Pattern: Normal: <= 5 Contractions in 10 Minutes (Jesica Sam, RN) Resting Tone (Palpate): Relaxed (Jesica Sam, RN) Datetime: 08/27/2016 22:30 Monitor Mode: External (Jesica Sam, RN) Frequency (min): 1.5-8 (Jesica Sam, RN) Quality: Mild (Jesica Sam, RN) Duration (sec): 40-90 (Jesica Sam, RN) Duration Criteria: Less than Two 120 Second Contractions (Jesica Sam, RN) Pattern: Normal: <= 5 Contractions in 10 Minutes (Jesica Sam, RN) Resting Tone (Palpate): Relaxed (Jesica Sam, RN) Datetime: 08/27/2016 22:00 Monitor Mode: External (Jesica Sam, RN) Frequency (min): 1-6 (Jesica Sam, RN) Quality: Mild (Jesica Sam, RN) Duration (sec): 50-90 (Jesica Sam, RN) Duration Criteria: Less than Two 120 Second Contractions (Jesica Sam, RN) Pattern: Normal: <= 5 Contractions in 10 Minutes (Jesica Sam, RN) Resting Tone (Palpate): Relaxed (Jesica Sam, RN) Datetime: 08/27/2016 21:30 Monitor Mode: External; Palpation (Radha Chalman, RN) Frequency (min): 1-6 (Radha Chalman, RN) Quality: Mild (Radha Chalman, RN) Duration (sec): 40-100 (Radha Chalman, RN) Pattern: Normal: <= 5 Contractions in 10 Minutes (Radha Chalman, RN) Resting Tone (Palpate): Relaxed (Radha Chalman, RN) Datetime: 08/27/2016 21:16 Contraction Comments: Pt states that u/c's are not anymore painful than they were this morning. States once she settles in bed, they are not as bad. (Armida Tari, RN) I/O Interventions: Up to BR (Armida Tari, RN) Datetime: 08/27/2016 21:00 Monitor Mode: External; Palpation (Radha Chalman, RN) Frequency (min): 1-5 (Radha Chalman, RN) Quality: Mild (Radha Chalman, RN) Duration (sec): 60-110 (Radha Chalman, RN) Pattern: Normal: <= 5 Contractions in 10 Minutes (Radha Chalman, RN) Resting Tone (Palpate): Relaxed (Radha Chalman, RN) Datetime: 08/27/2016 20:45 Monitor Mode: External (Armida Tari, RN) Frequency (min): 2-5 (Armida Tari, RN) Quality: Mild (Armida Tari, RN) Duration (sec): 60-70 (Armida Tari, RN) Pattern: Normal: <= 5 Contractions in 10 Minutes (Armida Tari, RN) Resting Tone (Palpate): Relaxed (Armida Tari, RN) Datetime: 08/27/2016 20:22 Monitor Mode: External US (Jesica Sam, RN) FHR Baseline Rate : 130 (Jesica Sam, RN) Variability: Moderate 6-25 bpm (Jesica Sam, RN) Accelerations: 15X15 (Jesica Sam, RN) Decelerations: None (Jesica Sam, RN) FHR Baseline Rate : 125 (Jesica Sam, RN) Variability: Moderate 6-25 bpm (Jesica Sam, RN) Accelerations: 15X15 (Jesica Sam, RN) Decelerations: None (Jesica Sam, RN) Datetime: 08/27/2016 20:15 Monitor Mode: External (Armida Tari, RN) Frequency (min): 2-6 (Armida Tari, RN) Quality: Mild (Armida Tari, RN) Duration (sec): 50-80 (Armida Tari, RN) Pattern: Normal: <= 5 Contractions in 10 Minutes (Armida Tari, RN) Resting Tone (Palpate): Relaxed (Armida Tari, RN) Monitor Mode: External US (Jesica Sam, RN) Monitor Mode: External US (Armida Tari, RN) FHR Baseline Rate : 130 (Armida Tari, RN) FHR Baseline Changes: No Baseline Change (Armida Tari, RN) Variability: Moderate 6-25 bpm (Jesica Sam, RN) Variability: Moderate 6-25 bpm (Armida Tari, RN) Accelerations: 15X15 (Jesica Sam, RN) Accelerations: 15X15 (Armida Tari, RN) Decelerations: None (Jesica Sam, RN) Decelerations: None (Armida Tari, RN) Monitor Mode: External US (Armida Tari, RN) FHR Baseline Rate : 135 (Armida Tari, RN) FHR Baseline Changes: No Baseline Change (Armida Tari, RN) Variability: Moderate 6-25 bpm (Armida Tari, RN) Accelerations: 15X15 (Armida Tari, RN) Decelerations: None (Armida Tari, RN) Datetime: 08/27/2016 20:11 Communication Comments: Pt. made aware of POC at this time and verbalizes understadning (Jesica Vargas, RN) Communication Comments: Dr. Mendoza on unit and updated on pt. status, toco tracing, and pain level. Orders received to keep pt. back on L_D unless pt. stops nicholas. (Jesica Sam, RN) Datetime: 08/27/2016 19:57 Monitor Interventions for FHR: Ultrasound Adjusted (Jesica Sam, RN) Datetime: 08/27/2016 19:45 Monitor Mode: External (Jesica Sam, RN) Frequency (min): 2.5-4 (Jesica Sam, RN) Quality: Mild (Jesica Sam, RN) Duration (sec): 60-90 (Jesica Sam, RN) Duration Criteria: Less than Two 120 Second Contractions (Jesica Sam, RN) Pattern: Normal: <= 5 Contractions in 10 Minutes (Jesica Sam, RN) Resting Tone (Palpate): Relaxed (Jesica Sam, RN) Patient Care Comments: crackers and peanut butter provided (Jesica Sam, RN) Datetime: 08/27/2016 19:40 Patient Position/Activity: Right Lateral (Jesica Sam, RN) Datetime: 08/27/2016 19:37 NBP Sys/Monalisa/Mean (mmHg): 133 (QS system process) : 88 (QS system process) : 106 (QS system process) Pulse: 100 (QS system process) LaborFlag: OB Triage (QS system process) Datetime: 08/27/2016 19:25 Level of Consciousness: Fully Conscious (Jesica Sam, RN) DTR's/Clonus: DTRs 2+; No Clonus (Jesica Sam, RN) Headache: Denies (Annotations: pt. states that she has had a generalized PATTERSON all day, has not eaten dinner due to reflux. Crackers and peanut butter provided to pt. at this time) (Jesica Sam, RN) Breath Sounds, Left: Clear and Equal (Jesica Sam, RN) Breath Sounds, Right: Clear and Equal (Jesica Sam, RN) Nausea/Vomiting: Denies (Jesica Sam, RN) RUQ Epigastric Pain: Denies (Jesica Sam, RN) Datetime: 08/27/2016 19:24 I/O Interventions: Up to BR (Jesica Sam, RN) Datetime: 08/27/2016 19:22 Pain Scale: 3 (Jesica Sam, RN) Pain Assessment Comments: pt. styates she feels intermittent ctn's some stronger than others (Jesica Sam, RN) LaborFlag: OB Triage (QS system process) Datetime: 08/27/2016 19:15 Communication Comments: Care assumed from D. Bellavance, RN (Jesica Sam, RN) Datetime: 08/27/2016 19:07 Monitor Mode: External (Daria Bellavance, RNC) Frequency (min): 3-10 (Daria Bellavance, RNC) Quality: Mild (Daria Bellavance, RNC) Duration (sec): 50-90 (Daria Bellavance, RNC) Duration Criteria: Less than Two 120 Second Contractions (Daria Bellavance, RNC) Pattern: Normal: <= 5 Contractions in 10 Minutes (Daria Bellavance, RNC) Resting Tone (Palpate): Relaxed (Daria Bellavance, RNC) Pain Assessment Comments: pressure (Daria Bellavance, RNC) Dilatation (cm): 3.0 (Daria Bellavance, RNC) Effacement (%): 80 (Daria Bellavance, RNC) Station: -2 (Daria Bellavance, RNC) Exam by: Deni Raymond CNM (Daria Bellavance, RNC) Membrane Status: Intact (Daria Bellavance, RNC) LaborFlag: OB Triage (QS system process) Datetime: 08/27/2016 18:32 Monitor Mode: External (Daria Bellavance, RNC) Frequency (min): 4-8 (Daria Bellavance, RNC) Quality: Mild (Daria Bellavance, RNC) Duration (sec): 60-90 (Daria Bellavance, RNC) Duration Criteria: Less than Two 120 Second Contractions (Daria Bellavance, RNC) Pattern: Normal: <= 5 Contractions in 10 Minutes (Daria Bellavance, RNC) Resting Tone (Palpate): Relaxed (Daria Bellavance, RNC) IV/Blood Work: IV Infusing per Order; New IV Bag Hung (Daria Bellavance, RNC) Patient Position/Activity: Semi-Fowlers (Daria Bellavance, RNC) Patient Care Comments: iv hung for hydration (Daria Bellavance, RNC) Datetime: 08/27/2016 18:29 I/O Interventions: Up to BR (Daria Bellavance, RNC) Datetime: 08/27/2016 18:00 Monitor Mode: External (Daria Bellavance, RNC) Frequency (min): 5-8 (Daria Bellavance, RNC) Quality: Mild (Daria Bellavance, RNC) Duration (sec): 60-110 (Daria Bellavance, RNC) Duration Criteria: Less than Two 120 Second Contractions (Daria Bellavance, RNC) Pattern: Normal: <= 5 Contractions in 10 Minutes (Daria Bellavance, RNC) Resting Tone (Palpate): Relaxed (Daria Bellavance, RNC) Datetime: 08/27/2016 17:39 I/O Interventions: Up to BR (Daria Bellavance, RNC) Datetime: 08/27/2016 17:33 Monitor Mode: External (Daria Bellavance, RNC) Frequency (min): 3-8 (Daria Bellavance, RNC) Quality: Mild (Daria Bellavance, RNC) Duration (sec): 50-90 (Daria Bellavance, RNC) Duration Criteria: Less than Two 120 Second Contractions (Daria Bellavance, RNC) Pattern: Normal: <= 5 Contractions in 10 Minutes (Daria Bellavance, RNC) Resting Tone (Palpate): Relaxed (Daria Bellavance, RNC) Datetime: 08/27/2016 16:57 Comments: back on the monitor for c/o contractions increasing (KHARI Black)
--- NOTE | 2016-08-28 04:48 | L&D General Admission ---
General Admit Datetime Report Generated by CPN: 08/28/2016 04:45 INFORMATION Patient Age: 31 (08/02/2016 13:04:QS system process) EDC: 10/11/2016 00:00 (08/27/2016 05:27:Imani Wadsworth RN) : 3 (08/27/2016 05:27:Imani Wadsworth RN) Para: 2 (08/27/2016 05:27:Imani Wadsworth RN) Term: 2 (08/27/2016 05:27:KHARI Black) : 0 (08/27/2016 05:27:KHARI Black) Spontaneous Abortions: 0 (08/27/2016 05:27:KHARI Black) Induced Abortions: 0 (08/27/2016 05:27:KHARI Black) Livin (08/27/2016 05:27:Imani Wadsworth RN) Cesareans: 0 (08/27/2016 05:27:KHARI Black) VBACs: 0 (08/27/2016 05:27:KHARI Black) Ectopic: 0 (08/27/2016 05:27:KHARI Black) Multiple Births: 1 (08/27/2016 05:27:KHARI Black) Baby, Number in Womb: 2 (08/27/2016 05:27:Imani Wadsworth RN) CARE Primary Canned Food Reconditioning Inspector: [facility] (08/27/2016 05:27:Imani Wadsworth RN) Month of 1st Visit: february (08/27/2016 05:27:KHARI Black) Adequate Care: Yes (08/27/2016 05:27:Imani Wadsworth RN) Prepregnancy Weight (lb): 168 (08/27/2016 05:27:KHARI Black) Prepregnancy Weight (kg): 76.4 (08/27/2016 05:27:QS system process) Height (in): 65 (08/27/2016 05:35:QS system process) ALLERGIES Medication Allergy: No (08/27/2016 05:27:Crystal BAUDILIO Wadsworth) Medication Allergies: No Known Allergies (08/27/2016) (08/27/2016 05:35:QS system process) Latex Allergy: No Latex Allergies (08/27/2016 05:27:Crystal Ermelinda, RN) Food Allergies: NA (08/27/2016 05:27:Crystal Ermelinda RN) Environmental Allergies: NA (08/27/2016 05:27:Crystal Peytona, RN) COMMUNICATION Primary Language: Citizen [place] (08/27/2016 05:27:Imani Wadsworth RN) Communication Barrier(s): None (08/27/2016 05:27:Crystal Ermelinda, RN) DEMOGRAPHICS Address: [address] [place] [id number] (08/02/2016 13:04:QS system process) Zipcode: [address] (08/02/2016 13:04:QS system process) Home (08/02/2016 13:04:QS system process) N: [id number] (08/02/2016 13:04:QS system process) Next of Kin Name: CYNTHIA SMITH (08/02/2016 13:04:QS system process) Next of Kin (08/02/2016 13:04:QS system process) Next of Kin Relationship: SPO (08/02/2016 13:04:QS system process) Date of : 1985 (08/02/2016 13:04:QS system process) Marital Status: (08/02/2016 13:04:QS system process) Sex: Female (08/02/2016 13:04:QS system process) Race: (08/02/2016 13:04:QS system process) Ethnicity: Non- or (08/02/2016 13:04:QS system process) Mosque: Spiritism (08/02/2016 13:04:QS system process) DRUG AND ALCOHOL USE Alcohol: No (08/27/2016 05:27:Imani Wadsworth RN) Cigarettes: Former Smoker. [id number] (08/27/2016 05:27:Imani Wadsworth RN) Marijuana: No (08/27/2016 05:27:Imani Wadsworth RN) Cocaine: No (08/27/2016 05:27:Imani Wadsworth RN) Other Illicit Drugs: No (08/27/2016 05:27:Imani Wadsworth RN) VACCINE HISTORY Influenza Vaccine: No (08/27/2016 05:27:Imani Wadsworth RN) Pneumococcal Vaccine: No (08/27/2016 05:27:Imani Wadsworth RN) Tetanus Vaccine: No (08/27/2016 05:27:Imani Wadsworth RN) Tdap Vaccine: Yes (08/27/2016 05:27:Imani Wadsworth RN) Tdap Date: 07/21/2016 (08/27/2016 05:27:Imani Wadsworth RN) Hepatitis B Vaccine: No (08/27/2016 05:27:Imani Wadsworth RN) Capacity Analyst: Other (08/27/2016 05:27:Imani Wadsworth RN) Feeding Preference: Breast (08/27/2016 05:27:Imani Wadsworth RN) Benefit of Breast Feed Discussed: Yes (08/27/2016 05:27:Imani Wadsworth RN) Circumcision: Yes (08/27/2016 05:27:Imani Wadsworth RN) Classes Attended: No (08/27/2016 05:27:Imani Wadsworth RN) Tubal Ligation: No (08/27/2016 05:27:Imani Wadsworth RN) Tubal Authorization Signed: N/A (08/27/2016 05:27:Imani Wadsworth RN) Consent: N/A (08/27/2016 05:27:Imani Wadsworth RN) Consent Signed: N/A (08/27/2016 05:27:Imani Wadsworth RN) Pain Management Plans: Epidural (08/27/2016 05:27:Imani Wadsworth RN) Plans for Labor and Delivery: None (08/27/2016 05:27:Imani Wadsworth RN) Support Person: Porfirio Smith (08/27/2016 05:27:Imani Wadsworth RN) Support Person Relationship: (08/27/2016 05:27:Imani Wadsworth RN) Cultural/Spritual Practice: Yes (08/27/2016 05:27:Imani Wadsworth RN) Spir/Cult Dietary Needs: Yes (08/27/2016 05:27:Imani Wadsworth RN) LIVING SITUATION/DISCHARGE PLAN Living Arrangements: House (08/27/2016 05:27:Imani Wadsworth RN) Adequate Access to:: Electric; Heat; Refrigeration; Plumbing/Running water; Phone; Transportation (08/27/2016 05:27:Imani Wadsworth RN) WIC Program: Yes (08/27/2016 05:27:Imani Wadsworth RN) Discharge Snaker Driving Horses Person: Porfirio Smith (08/27/2016 05:27:Imani Wadsworth RN) Person to Help after Discharge: Porfirio Smith (08/27/2016 05:27:Imani Wadsworth RN) Currently Using Commun Resources: Yes (08/27/2016 05:27:Imani Wadsworth RN) Specify Current Resource Used: Food stamps (08/27/2016 05:27:Imani Wadsworth RN) Outside Agency/Manager Balance: Yes (08/27/2016 05:27:Imani Wadsworth RN) Car Seat for Discharge: Yes (08/27/2016 05:27:Imani Wadsworth RN) Adoption Requested: No (08/27/2016 05:27:Imani Wadsworth RN) Pt Contact w/ Post : N/A (08/27/2016 05:27:Imani Wadsworth RN) LABS Blood Type: A Positive (08/27/2016 05:27:Imani Wadsworth RN) Antibody Screen: Negative (08/27/2016 05:27:Imani Wadsworth RN) Gonorrhea: Negative (08/27/2016 05:27:Imani Wadsworth RN) Chlamydia: Negative (08/27/2016 05:27:Imani Wadsworth RN) Rubella: Immune (08/27/2016 05:27:Imani Wadsworth RN) OB/PREVIOUS HISTORY Previous Procedures: NST (08/27/2016 05:27:Imani Wadsworth RN) Current Procedures: Ultrasound; NST (08/27/2016 05:27:Imani Wadsworth RN) History of Previous : No (08/27/2016 05:27:Imani Wadsworth RN) History of Gestational Diabetes: No (08/27/2016 05:27:Imani Wadsworth RN) History of PIH: No (08/27/2016 05:27:Imani Wadsworth RN) History of Incompetent Cervix: No (08/27/2016 05:27:Imani Wadsworth RN) History of Placenta Previa/Abrup: No (08/27/2016 05:27:Imani Wadsworth RN) History of Macrosomia: No (08/27/2016 05:27:Imani Wadsworth RN) History of IUGR: No (08/27/2016 05:27:Imani Wadsworth RN) History of Hemorrhage: No (08/27/2016 05:27:Imani Wadsworth RN) History of Loss/Stillborn: No (08/27/2016 05:27:Imani Wadsworth RN) History of : No (08/27/2016 05:27:Imani Wadsworth RN) History of D (Rh) Sensitization: No (08/27/2016 05:27:Imani Wadsworth RN) History Recurrent Loss/Stillborn: No (08/27/2016 05:27:Imani Wadsworth RN) History Depression/PP Depression: No (08/27/2016 05:27:Imani Wadsworth RN) History of Uterine Anomaly/NAVID: No (08/27/2016 05:27:Imani Wadsworth RN) History of Infertility: No (08/27/2016 05:27:Imani Wadsworth RN) History of ART Treatment: No (08/27/2016 05:27:Imani Wadsworth RN) History of NAVID: No (08/27/2016 05:27:Imani Wadsworth RN) Comments Obstetrical History: 04/10/2011- vaginal delivery 8lbs 08/14/2014- vaginal delivery 8 lbs 10 oz (08/27/2016 05:27:Imani Wadsworth RN) MEDICAL HISTORY Med Hx Diabetes: No (08/27/2016 05:27:Imani Wadsworth RN) Med Hx Hypertension: No (08/27/2016 05:27:Imani Wadsworth RN) Med Hx Heart Disease: No (08/27/2016 05:27:Imani Wadsworth RN) Med Hx Autoimmune Disorder: No (08/27/2016 05:27:Imani Wadsworth RN) Med Hx Kidney Disease/UTI: No (08/27/2016 05:27:Imani Wadsworth RN) Med Hx Neurologic/Epilepsy: No (08/27/2016 05:27:Imani Wadsworth RN) Med Hx Psychiatric Disorders: No (08/27/2016 05:27:Imani Wadsworth RN) Med Hx Hepatitis/Liver Disease: No (08/27/2016 05:27:Imani Wadsworth RN) Med Hx Varicosities/Phlebitis: No (08/27/2016 05:27:Imani Wadsworth RN) Med Hx Thyroid Dysfunction: No (08/27/2016 05:27:Imani Wadsworth RN) Med Hx Trauma/Violence: No (08/27/2016 05:27:Imani Wadsworth RN) Med Hx Blood Transfusion: No (08/27/2016 05:27:Imani Wadsworth RN) Med Hx Pulmonary (Asthma,TB): No (08/27/2016 05:27:Imani Wadsworth RN) Med Hx Breast: No (08/27/2016 05:27:Imani Wadsworth RN) Med Hx RETAIL SALESMAN Surgery: No (08/27/2016 05:27:Imani Wadsworth RN) Med Hx Hospitalization/Surgery: No (08/27/2016 05:27:Imani Wadsworth RN) Med Hx Anesthetic Complications: No (08/27/2016 05:27:Imani Wadsworth RN) Med Hx Abnormal Pap Smear: No (08/27/2016 05:27:Imani Wadsworth RN) Other Medical Diseases: No (08/27/2016 05:27:Imani Wadsworth RN) Med Hx Significant Family Hx: No (08/27/2016 05:27:Imani Wadsworth RN) INFECTIOUS HISTORY Inf Hx Gonorrhea: No (08/27/2016 05:27:Imani Wadsworth RN) Inf Hx Chlamydia: No (08/27/2016 05:27:Imani Wadsworth RN) Inf Hx Syphilis: No (08/27/2016 05:27:Imani Wadsworth RN) Inf Hx HIV/AIDS: No (08/27/2016 05:27:Imani Wadsworth RN) Inf Hx Human Papilloma Virus: No (08/27/2016 05:27:Imani Wadsworth RN) Inf Hx Pt/Partner Genital Herpes: No (08/27/2016 05:27:Imani Wadsworth RN) Inf Hx Tuberculosis/Exposure: No (08/27/2016 05:27:Imani Wadsworth RN) Inf Hx Hepatitis B,C: No (08/27/2016 05:27:Imani Wadsworth RN) Inf Hx Rash or Viral Illness: No (08/27/2016 05:27:Imani Wadsworth RN) GENETIC HISTORY Gen Hx Age >=35 at [place]: No (08/27/2016 05:27:Imani Wadsworth RN) Gen Hx Thalassemia: No (08/27/2016 05:27:Imani Wadsworth RN) Gen Hx Congenital Heart Defect: No (08/27/2016 05:27:Imani Wadsworth RN) Gen Hx Neural Tube Defect: No (08/27/2016 05:27:Imani Wadsworth RN) Gen Hx Down's Syndrome: No (08/27/2016 05:27:Imani Wadsworth RN) Gen Hx Samuel-Sachs: No (08/27/2016 05:27:Imani Wadsworth RN) Gen Hx Francisco: No (08/27/2016 05:27:Imani Wadsworth RN) Gen Hx Familial Dysautonomia: No (08/27/2016 05:27:Imani Wadwsorth RN) Gen Hx Sickle Cell Disease/Trait: No (08/27/2016 05:27:Imani Wadsworth RN) Gen Hx Hemophilia/Blood Disorder: No (08/27/2016 05:27:Imani Wadsworth RN) Gen Hx Muscular Dystrophy: No (08/27/2016 05:27:Imani Wadsworth RN) Gen Hx Cystic Fibrosis: No (08/27/2016 05:27:Imani Wadsworth RN) Gen Hx Huntingtons Chorea: No (08/27/2016 05:27:Imani Wadsworth RN) Gen Hx Mental Retardation/Autism: No (08/27/2016 05:27:Imani Wadsworth RN) Gen Hx Tested for Fragile X: No (08/27/2016 05:27:Imani Wadsworth RN) Gen Hx Other Inher/Chromosomal: No (08/27/2016 05:27:Imani Wadsworth RN) Gen Hx Maternal Metabolic DO: No (08/27/2016 05:27:Imani Wadsworth RN) Gen Hx Pt Father or FOB Defect: No (08/27/2016 05:27:Imani Wadsworth RN) Gen Hx Other Genetic History: No (08/27/2016 05:27:Imani Wadsworth RN) Gen Hx Drugs/Meds since LMP: No (08/27/2016 05:27:Imani Wadsworth RN)
--- NOTE | 2016-08-28 06:23 | L&D General Admission ---
General Admit Datetime Report Generated by CPN: 08/28/2016 06:00 INFORMATION Patient Age: 31 (08/02/2016 13:04:QS system process) EDC: 10/11/2016 00:00 (08/27/2016 05:27:Imani Wadsworth RN) : 3 (08/27/2016 05:27:Imani Wadsworth RN) Para: 2 (08/27/2016 05:27:Imani Wadsworth RN) Term: 2 (08/27/2016 05:27:KHARI Black) : 0 (08/27/2016 05:27:KHARI Black) Spontaneous Abortions: 0 (08/27/2016 05:27:KHARI Black) Induced Abortions: 0 (08/27/2016 05:27:KHARI Black) Livin (08/27/2016 05:27:Imani Wadsworth RN) Cesareans: 0 (08/27/2016 05:27:KHARI Black) VBACs: 0 (08/27/2016 05:27:KHARI Black) Ectopic: 0 (08/27/2016 05:27:KHARI Black) Multiple Births: 1 (08/27/2016 05:27:KHARI Black) Baby, Number in Womb: 2 (08/27/2016 05:27:Imani Wadsworth RN) CARE Primary Supervising Deputy: [facility] (08/27/2016 05:27:Imani Wadsworth RN) Month of 1st Visit: february (08/27/2016 05:27:KHARI Black) Adequate Care: Yes (08/27/2016 05:27:Imani Wadsworth RN) Prepregnancy Weight (lb): 168 (08/27/2016 05:27:KHARI Black) Prepregnancy Weight (kg): 76.4 (08/27/2016 05:27:QS system process) Height (in): 65 (08/27/2016 05:35:QS system process) ALLERGIES Medication Allergy: No (08/27/2016 05:27:Crystal BAUDILIO Wadsworth) Medication Allergies: No Known Allergies (08/27/2016) (08/27/2016 05:35:QS system process) Latex Allergy: No Latex Allergies (08/27/2016 05:27:Crystal Ermelinda, RN) Food Allergies: NA (08/27/2016 05:27:Crystal Ermelinda RN) Environmental Allergies: NA (08/27/2016 05:27:Crystal Weirton, RN) COMMUNICATION Primary Language: [place]er (08/27/2016 05:27:Imani Wadsworth RN) Communication Barrier(s): None (08/27/2016 05:27:Crystal Ermelinda, RN) DEMOGRAPHICS Address: [address] [place] [id number] (08/02/2016 13:04:QS system process) Zipcode: [address] (08/02/2016 13:04:QS system process) Home (08/02/2016 13:04:QS system process) N: [id number] (08/02/2016 13:04:QS system process) Next of Kin Name: CYNTHIA SMITH (08/02/2016 13:04:QS system process) Next of Kin (08/02/2016 13:04:QS system process) Next of Kin Relationship: SPO (08/02/2016 13:04:QS system process) Date of : 1985 (08/02/2016 13:04:QS system process) Marital Status: (08/02/2016 13:04:QS system process) Sex: Female (08/02/2016 13:04:QS system process) Race: (08/02/2016 13:04:QS system process) Ethnicity: Non- or (08/02/2016 13:04:QS system process) Jain: Congregational (08/02/2016 13:04:QS system process) DRUG AND ALCOHOL USE Alcohol: No (08/27/2016 05:27:Imani Wadsworth RN) Cigarettes: Former Smoker. [id number] (08/27/2016 05:27:Imani Wadsworth RN) Marijuana: No (08/27/2016 05:27:Imani Wadsworth RN) Cocaine: No (08/27/2016 05:27:Imani Wadsworth RN) Other Illicit Drugs: No (08/27/2016 05:27:Imani Wadsworth RN) VACCINE HISTORY Influenza Vaccine: No (08/27/2016 05:27:Imani Wadsworth RN) Pneumococcal Vaccine: No (08/27/2016 05:27:Imani Wadsworth RN) Tetanus Vaccine: No (08/27/2016 05:27:Imani Wadsworth RN) Tdap Vaccine: Yes (08/27/2016 05:27:Imani Wadsworth RN) Tdap Date: 07/21/2016 (08/27/2016 05:27:Imani Wadsworth RN) Hepatitis B Vaccine: No (08/27/2016 05:27:Imani Wadsworth RN) Master Plumber: Other (08/27/2016 05:27:Imani Wadsworth RN) Feeding Preference: Breast (08/27/2016 05:27:Imani Wadsworth RN) Benefit of Breast Feed Discussed: Yes (08/27/2016 05:27:Imani Wadsworth RN) Circumcision: Yes (08/27/2016 05:27:Imani Wadsworth RN) Classes Attended: No (08/27/2016 05:27:Imani Wadsworth RN) Tubal Ligation: No (08/27/2016 05:27:Imani Wadsworth RN) Tubal Authorization Signed: N/A (08/27/2016 05:27:Imani Wadsworth RN) Consent: N/A (08/27/2016 05:27:Imani Wadsworth RN) Consent Signed: N/A (08/27/2016 05:27:Imani Wadsworth RN) Pain Management Plans: Epidural (08/27/2016 05:27:Imani Wadsworth RN) Plans for Labor and Delivery: None (08/27/2016 05:27:Imani Wadsworth RN) Support Person: Porfirio Smith (08/27/2016 05:27:Imani Wadsworth RN) Support Person Relationship: (08/27/2016 05:27:Imani Wadsworth RN) Cultural/Spritual Practice: Yes (08/27/2016 05:27:Imani Wadsworth RN) Spir/Cult Dietary Needs: Yes (08/27/2016 05:27:Imani Wadsworth RN) LIVING SITUATION/DISCHARGE PLAN Living Arrangements: House (08/27/2016 05:27:Imani Wadsworth RN) Adequate Access to:: Electric; Heat; Refrigeration; Plumbing/Running water; Phone; Transportation (08/27/2016 05:27:Imani Wadsworth RN) WIC Program: Yes (08/27/2016 05:27:Imani Wadsworth RN) Discharge High [employer] Math Teacher Person: Porfirio Smith (08/27/2016 05:27:Imani Wadsworth RN) Person to Help after Discharge: Porfirio Smith (08/27/2016 05:27:Imani Wadsworth RN) Currently Using Commun Resources: Yes (08/27/2016 05:27:Imani Wadsworth RN) Specify Current Resource Used: Food stamps (08/27/2016 05:27:Imani Wadsworth RN) Outside Agency/Supervisory Geographer: Yes (08/27/2016 05:27:Imani Wadsworth RN) Car Seat for Discharge: Yes (08/27/2016 05:27:Imani Wadsworth RN) Adoption Requested: No (08/27/2016 05:27:Imani Wadsworth RN) Pt Contact w/ Post : N/A (08/27/2016 05:27:Imani Wadsworth RN) LABS Blood Type: A Positive (08/27/2016 05:27:Imani Wadsworth RN) Antibody Screen: Negative (08/27/2016 05:27:Imani Wadsworth RN) Gonorrhea: Negative (08/27/2016 05:27:Imani Wadsworth RN) Chlamydia: Negative (08/27/2016 05:27:Imani Wadsworth RN) Rubella: Immune (08/27/2016 05:27:Imani Wadsworth RN) OB/PREVIOUS HISTORY Previous Procedures: NST (08/27/2016 05:27:Imani Wadsworth RN) Current Procedures: Ultrasound; NST (08/27/2016 05:27:Imani Wadsworth RN) History of Previous : No (08/27/2016 05:27:Imani Wadsworth RN) History of Gestational Diabetes: No (08/27/2016 05:27:Imani Wadsworth RN) History of PIH: No (08/27/2016 05:27:Imani Wadsworth RN) History of Incompetent Cervix: No (08/27/2016 05:27:Imani Wadsworth RN) History of Placenta Previa/Abrup: No (08/27/2016 05:27:Imani Wadsworth RN) History of Macrosomia: No (08/27/2016 05:27:Imani Wadsworth RN) History of IUGR: No (08/27/2016 05:27:Imani Wadsworth RN) History of Hemorrhage: No (08/27/2016 05:27:Imani Wadsworth RN) History of Loss/Stillborn: No (08/27/2016 05:27:Imani Wadsworth RN) History of : No (08/27/2016 05:27:Imani Wadsworth RN) History of D (Rh) Sensitization: No (08/27/2016 05:27:Imani Wadsworth RN) History Recurrent Loss/Stillborn: No (08/27/2016 05:27:Imani Wadsworth RN) History Depression/PP Depression: No (08/27/2016 05:27:Imani Wadsworth RN) History of Uterine Anomaly/NAVID: No (08/27/2016 05:27:Imani Wadsworth RN) History of Infertility: No (08/27/2016 05:27:Imani Wadsworth RN) History of ART Treatment: No (08/27/2016 05:27:Imani Wadsworth RN) History of NAVID: No (08/27/2016 05:27:Imani Wadsworth RN) Comments Obstetrical History: 04/10/2011- vaginal delivery 8lbs 08/14/2014- vaginal delivery 8 lbs 10 oz (08/27/2016 05:27:Imani Wadsworth RN) MEDICAL HISTORY Med Hx Diabetes: No (08/27/2016 05:27:Imani Wadsworth RN) Med Hx Hypertension: No (08/27/2016 05:27:Imani Wadsworth RN) Med Hx Heart Disease: No (08/27/2016 05:27:Imani Wadsworth RN) Med Hx Autoimmune Disorder: No (08/27/2016 05:27:Imani Wadsworth RN) Med Hx Kidney Disease/UTI: No (08/27/2016 05:27:Imani Wadsworth RN) Med Hx Neurologic/Epilepsy: No (08/27/2016 05:27:Imani Wadsworth RN) Med Hx Psychiatric Disorders: No (08/27/2016 05:27:Imani Wadsworth RN) Med Hx Hepatitis/Liver Disease: No (08/27/2016 05:27:Imani Wadsworth RN) Med Hx Varicosities/Phlebitis: No (08/27/2016 05:27:Imani Wadsworth RN) Med Hx Thyroid Dysfunction: No (08/27/2016 05:27:Imani Wadsworth RN) Med Hx Trauma/Violence: No (08/27/2016 05:27:Imani Wadsworth RN) Med Hx Blood Transfusion: No (08/27/2016 05:27:Imani Wadsworth RN) Med Hx Pulmonary (Asthma,TB): No (08/27/2016 05:27:Imani Wadsworth RN) Med Hx Breast: No (08/27/2016 05:27:Imani Wadsworth RN) Med Hx 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: No (08/27/2016 05:27:Imani Wadsworth RN) Med Hx Hospitalization/Surgery: No (08/27/2016 05:27:Imani Wadsworth RN) Med Hx Anesthetic Complications: No (08/27/2016 05:27:Imani Wadsworth RN) Med Hx Abnormal Pap Smear: No (08/27/2016 05:27:Imani Wadsworth RN) Other Medical Diseases: No (08/27/2016 05:27:Imani Wadsworth RN) Med Hx Significant Family Hx: No (08/27/2016 05:27:Imani Wadsworth RN) INFECTIOUS HISTORY Inf Hx Gonorrhea: No (08/27/2016 05:27:Imani Wadsworth RN) Inf Hx Chlamydia: No (08/27/2016 05:27:Imani Wadsworth RN) Inf Hx Syphilis: No (08/27/2016 05:27:Imani Wadsworth RN) Inf Hx HIV/AIDS: No (08/27/2016 05:27:Imani Wadsworth RN) Inf Hx Human Papilloma Virus: No (08/27/2016 05:27:Imani Wadsworth RN) Inf Hx Pt/Partner Genital Herpes: No (08/27/2016 05:27:Imani Wadsworth RN) Inf Hx Tuberculosis/Exposure: No (08/27/2016 05:27:Imani Wadsworth RN) Inf Hx Hepatitis B,C: No (08/27/2016 05:27:Imani Wadsworth RN) Inf Hx Rash or Viral Illness: No (08/27/2016 05:27:Imani Wadsworth RN) GENETIC HISTORY Gen Hx Age >=35 at [place]: No (08/27/2016 05:27:Imani Wadsworth RN) Gen Hx Thalassemia: No (08/27/2016 05:27:Imani Wadsworth RN) Gen Hx Congenital Heart Defect: No (08/27/2016 05:27:Imani Wadsworth RN) Gen Hx Neural Tube Defect: No (08/27/2016 05:27:Imani Wadsworth RN) Gen Hx Down's Syndrome: No (08/27/2016 05:27:Imani Wadsworth RN) Gen Hx Samuel-Sachs: No (08/27/2016 05:27:Imani Wadsworth RN) Gen Hx Francisco: No (08/27/2016 05:27:Imani Wadsworth RN) Gen Hx Familial Dysautonomia: No (08/27/2016 05:27:Imani Wadsworth RN) Gen Hx Sickle Cell Disease/Trait: No (08/27/2016 05:27:Imani Wadsworth RN) Gen Hx Hemophilia/Blood Disorder: No (08/27/2016 05:27:Imani Wadsworth RN) Gen Hx Muscular Dystrophy: No (08/27/2016 05:27:Imani Wadsworth RN) Gen Hx Cystic Fibrosis: No (08/27/2016 05:27:Imani Wadsworth RN) Gen Hx Huntingtons Chorea: No (08/27/2016 05:27:Imani Wadsworth RN) Gen Hx Mental Retardation/Autism: No (08/27/2016 05:27:Imani Wadsworth RN) Gen Hx Tested for Fragile X: No (08/27/2016 05:27:Imani Wadsworth RN) Gen Hx Other Inher/Chromosomal: No (08/27/2016 05:27:Imani Wadsworth RN) Gen Hx Maternal Metabolic DO: No (08/27/2016 05:27:Imani Wadsworth RN) Gen Hx Pt Father or FOB Defect: No (08/27/2016 05:27:Imani Wadsworth RN) Gen Hx Other Genetic History: No (08/27/2016 05:27:Imani Wadsworth RN) Gen Hx Drugs/Meds since LMP: No (08/27/2016 05:27:Imani Wadsworth RN)
[2016-08-28] MEDS ORDERED: BETAMET ACET/BETAMET NA INJ 6 MG/1 ML ONE (06:36)
[2016-08-28] MEDS ORDERED: BETAMET ACET/BETAMET NA INJ 6 MG/1 ML IM ONE (07:45)
--- NOTE | 2016-08-28 08:01 | L&D Flow Sheet ---
LD Flowsheet Datetime Report Generated by CPN: 08/28/2016 08:00 Datetime: 08/28/2016 07:49 NBP Sys/Monalisa/Mean (mmHg): 111 (QS system process) : 56 (QS system process) : 77 (QS system process) Pulse: 85 (QS system process) LaborFlag: OB Triage (QS system process) Datetime: 08/28/2016 07:00 Monitor Mode: External (Jesica Sam, RN) Frequency (min): x3 (Jesica Sam, RN) Quality: Mild (Jesica Sam, RN) Duration (sec): 80-110 (Jesica Sam, RN) Duration Criteria: Less than Two 120 Second Contractions (Jesica Sam, RN) Pattern: Normal: <= 5 Contractions in 10 Minutes (Jesica Sam, RN) Resting Tone (Palpate): Relaxed (Jesica Sam, RN) Datetime: 08/28/2016 06:50 Patient Care Comments: pt. denies any needs, questions, or concerns at this time (Jesica Sam, RN) Datetime: 08/28/2016 06:48 Pain Assessment Comments: pt. denies feeling ctn's, states she has been sleeping nicely (Jesica Sam, RN) LaborFlag: OB Triage (QS system process) Datetime: 08/28/2016 06:45 Steroids: Celestone 12mg IM - Dose 2 (Jesica Sam, RN) Medication Comments: to L thigh (Jesica Sam, RN) Datetime: 08/28/2016 06:30 Monitor Mode: External (Jesica Sam, RN) Frequency (min): 9-12 (Jesica Sam, RN) Quality: Mild (Jesica Sam, RN) Duration (sec): 80-150 (Jesica Sam, RN) Duration Criteria: Less than Two 120 Second Contractions (Jesica Sam, RN) Pattern: Normal: <= 5 Contractions in 10 Minutes (Jesica Sam, RN) Resting Tone (Palpate): Relaxed (Jesica Sam, RN) Datetime: 08/28/2016 06:00 Monitor Mode: External (Jesica Sam, RN) Frequency (min): 7-11 (Jesica Sam, RN) Quality: Mild (Jesica Sam, RN) Duration (sec): 50-150 (Jesica Sam, RN) Duration Criteria: Less than Two 120 Second Contractions (Jesica Sam, RN) Pattern: Normal: <= 5 Contractions in 10 Minutes (Jesica Sam, RN) Resting Tone (Palpate): Relaxed (Jesica Sam, RN) Datetime: 08/28/2016 05:30 Monitor Mode: External (Jesica Sam, RN) Frequency (min): x2 (Jesica Sam, RN) Quality: Mild (Jesica Sam, RN) Duration (sec): 90 (Jesica Sam, RN) Duration Criteria: Less than Two 120 Second Contractions (Jesica Sam, RN) Pattern: Normal: <= 5 Contractions in 10 Minutes (Jesica Sam, RN) Resting Tone (Palpate): Relaxed (Jesica Sam, RN) Datetime: 08/28/2016 05:00 Monitor Mode: External (Jesica Sam, RN) Frequency (min): 10-12 (Jesica Sam, RN) Quality: Mild (Jesica Sam, RN) Duration (sec): 80-110 (Jesica Sam, RN) Duration Criteria: Less than Two 120 Second Contractions (Jesica Sam, RN) Pattern: Normal: <= 5 Contractions in 10 Minutes (Jesica Sam, RN) Resting Tone (Palpate): Relaxed (Jesica Sam, RN) Datetime: 08/28/2016 04:33 I/O Interventions: Up to BR (Jesica Sam, RN) Datetime: 08/28/2016 04:30 Monitor Mode: External (Jesica Sam, RN) Frequency (min): IREGG (Jesica Sam, RN) Quality: Mild (Jesica Sam, RN) Duration (sec): 50-80 (Jesica Sam, RN) Duration Criteria: Less than Two 120 Second Contractions (Jesica Sam, RN) Pattern: Normal: <= 5 Contractions in 10 Minutes (Jesica Sam, RN) Resting Tone (Palpate): Relaxed (Jesica Sam, RN) Contraction Comments: irritability noted (Jesica Sam, RN) Datetime: 08/28/2016 04:00 Monitor Mode: External (Jesica Sam, RN) Frequency (min): 1.5-7 (Jesica Sam, RN) Quality: Mild (Jesica Sam, RN) Duration (sec): 40-120 (Jesica Sam, RN) Duration Criteria: Less than Two 120 Second Contractions (Jesica Sam, RN) Pattern: Normal: <= 5 Contractions in 10 Minutes (Jesica Sam, RN) Resting Tone (Palpate): Relaxed (Jesica Sam, RN) Contraction Comments: irritability noted (Jesica Sam, RN) Datetime: 08/28/2016 03:30 Monitor Mode: External (Jesica Sam, RN) Frequency (min): 4-7 (Jesica Sam, RN) Quality: Mild (Jesica Sam, RN) Duration (sec): 40-90 (Jesica Sam, RN) Duration Criteria: Less than Two 120 Second Contractions (Jesica Sam, RN) Pattern: Normal: <= 5 Contractions in 10 Minutes (Jesica Sam, RN) Resting Tone (Palpate): Relaxed (Jesica Sam, RN) Datetime: 08/28/2016 03:00 Monitor Mode: External (Jesica Sam, RN) Frequency (min): IREGG (Jesica Sam, RN) Quality: Mild (Jesica Sam, RN) Duration (sec): 50-70 (Jesica Sam, RN) Duration Criteria: Less than Two 120 Second Contractions (Jesica Sam, RN) Pattern: Normal: <= 5 Contractions in 10 Minutes (Jesica Sam, RN) Resting Tone (Palpate): Relaxed (Jesica Sam, RN) Datetime: 08/28/2016 02:30 Monitor Mode: External (Jesica Sam, RN) Frequency (min): x3 (Jesica Sam, RN) Quality: Mild (Jesica Sam, RN) Duration (sec): 40-90 (Jesica Sam, RN) Duration Criteria: Less than Two 120 Second Contractions (Jesica Sam, RN) Pattern: Normal: <= 5 Contractions in 10 Minutes (Jesica Sam, RN) Resting Tone (Palpate): Relaxed (Jesica Sam, RN) Datetime: 08/28/2016 02:00 Monitor Mode: External; Palpation (Jesica Sam, RN) Frequency (min): x1 (Jesica Sam, RN) Quality: Mild (Jesica Sam, RN) Duration (sec): 60 (Jesica Sam, RN) Duration Criteria: Less than Two 120 Second Contractions (Jesica Sam, RN) Pattern: Normal: <= 5 Contractions in 10 Minutes (Jesica Sam, RN) Resting Tone (Palpate): Relaxed (Jesica Sam, RN) Contraction Comments: irritability noted, pt. states she feels as if her ctn's have worn off (Jesica Sam, RN) Datetime: 08/28/2016 01:31 Monitor Interventions for UA: Edmond Adjusted (Jesica Sam, RN) Datetime: 08/28/2016 01:30 Monitor Mode: External (Jesica Sam, RN) Frequency (min): OCC (Jesica Sam, RN) Quality: Mild (Jesica Sam, RN) Duration (sec): 40-50 (Jesica Sam, RN) Duration Criteria: Less than Two 120 Second Contractions (Jesica Sam, RN) Pattern: Normal: <= 5 Contractions in 10 Minutes (Jesica Sam, RN) Resting Tone (Palpate): Relaxed (Jesica Sam, RN) Datetime: 08/28/2016 01:00 Monitor Mode: External; Palpation (Jesica Sam, RN) Frequency (min): 4-8 (Jesica Sam, RN) Quality: Mild (Jesica Sam, RN) Duration (sec): 40-130 (Jesica Sam, RN) Duration Criteria: Less than Two 120 Second Contractions (Jesica Sam, RN) Pattern: Normal: <= 5 Contractions in 10 Minutes (Jesica Asm, RN) Resting Tone (Palpate): Relaxed (Jesica Sam, RN) Datetime: 08/28/2016 00:30 Monitor Mode: External (Jesica Sam, RN) Frequency (min): 5.5-6 (Jesica Sam, RN) Quality: Mild (Jesica Sam, RN) Duration (sec): 40-100 (Jesica Sam, RN) Duration Criteria: Less than Two 120 Second Contractions (Jesica Sam, RN) Pattern: Normal: <= 5 Contractions in 10 Minutes (Jesica Sam, RN) Resting Tone (Palpate): Relaxed (Jesica Sam, RN) Datetime: 08/28/2016 00:25 NBP Sys/Monalisa/Mean (mmHg): 118 (QS system process) : 59 (QS system process) : 81 (QS system process) Pulse: 88 (QS system process) Temperature (F): 97.8 (Jesica Sam, RN) Temperature (C): 36.6 (QS system process) Temperature Route: Oral (Jesica Vargas, RN) LaborFlag: OB Triage (QS system process) Datetime: 08/28/2016 00:22 Medication Comments: Vistaril 50 mg PO x1 dose (Jesica Vargas, RN) IV/Blood Work: IV Infusing per Order; New IV Bag Hung (Jesica Vargas RN) Patient Care Comments: LR at 125 ml/hr (Jesica Kwokco, RN) Datetime: 08/28/2016 00:00 Monitor Mode: External (Jesica Sam, RN) Frequency (min): 2-7 (Jesica Sam, RN) Quality: Mild (Jesica Sam, RN) Duration (sec): 40-100 (Jesica Sam, RN) Duration Criteria: Less than Two 120 Second Contractions (Jesica Sam, RN) Pattern: Normal: <= 5 Contractions in 10 Minutes (Jesica Sam, RN) Resting Tone (Palpate): Relaxed (Jesica Sam, RN) Datetime: 08/27/2016 23:48 Monitor Interventions for UA: Edmond Adjusted (Jesica Sam, RN) Datetime: 08/27/2016 23:43 I/O Interventions: Ice Chips Given; Clear Liquids Given (Jesica Sam, RN) Datetime: 08/27/2016 23:30 Monitor Mode: External; Palpation (Jesica Sam, RN) Frequency (min): 3-6 (Jesica Sam, RN) Quality: Mild (Jesica Sam, RN) Duration (sec): 50-110 (Jesica Sam, RN) Duration Criteria: Less than Two 120 Second Contractions (Jesica Sam, RN) Pattern: Normal: <= 5 Contractions in 10 Minutes (Jesica Sam, RN) Resting Tone (Palpate): Relaxed (Jesica Sam, RN) Datetime: 08/27/2016 23:28 Pain Scale: 2 (Jesica Vargas RN) Pain Assessment Comments: pt. states she doesnt feel her ctn's when she is up, but sh is aware of them when she lays down (Jesica Vargas, RN) I/O Interventions: Up to BR (Jesica Vargas, RN) LaborFlag: OB Triage (QS system process) Datetime: 08/27/2016 23:00 Monitor Mode: External (Jesica Sam, RN) Frequency (min): 1.5-8 (Jesica Sam, RN) Quality: Mild (Jesica Sam, RN) Duration (sec): 50-90 (Jesica Sam, RN) Duration Criteria: Less than Two 120 Second Contractions (Jesica Sam, RN) Pattern: Normal: <= 5 Contractions in 10 Minutes (Jesica Sam, RN) Resting Tone (Palpate): Relaxed (Jesica Sam, RN) Datetime: 08/27/2016 22:30 Monitor Mode: External (Jesica Sam, RN) Frequency (min): 1.5-8 (Jesica Sam, RN) Quality: Mild (Jesica Sam, RN) Duration (sec): 40-90 (Jesica Sam, RN) Duration Criteria: Less than Two 120 Second Contractions (Jesica Sam, RN) Pattern: Normal: <= 5 Contractions in 10 Minutes (Jesica Sam, RN) Resting Tone (Palpate): Relaxed (Jesica Sam, RN) Datetime: 08/27/2016 22:00 Monitor Mode: External (Jesica Sam, RN) Frequency (min): 1-6 (Jesica Sam, RN) Quality: Mild (Jesica Sam, RN) Duration (sec): 50-90 (Jesica Sam, RN) Duration Criteria: Less than Two 120 Second Contractions (Jesica Vargas, RN) Pattern: Normal: <= 5 Contractions in 10 Minutes (Jesica Vargas RN) Resting Tone (Palpate): Relaxed (Jesica Vargas, RN) Datetime: 08/27/2016 21:30 Monitor Mode: External; Palpation (Radha Thacker RN) Frequency (min): 1-6 (Radha Thacker RN) Quality: Mild (Radha Thacker RN) Duration (sec): 40-100 (Radha Thacker RN) Pattern: Normal: <= 5 Contractions in 10 Minutes (Radha Thacker RN) Resting Tone (Palpate): Relaxed (Radha Thacker RN) Datetime: 08/27/2016 21:16 Contraction Comments: Pt states that u/c's are not anymore painful than they were this morning. States once she settles in bed, they are not as bad. (Armida Marc RN) I/O Interventions: Up to BR (Armida Tari, RN) Datetime: 08/27/2016 21:00 Monitor Mode: External; Palpation (Radha Chalman, RN) Frequency (min): 1-5 (Radha Chalman, RN) Quality: Mild (Radha Chalman, RN) Duration (sec): 60-110 (Radha Chalman, RN) Pattern: Normal: <= 5 Contractions in 10 Minutes (Radha Chalman, RN) Resting Tone (Palpate): Relaxed (Radha Chalman, RN) Datetime: 08/27/2016 20:45 Monitor Mode: External (Armida Tari, RN) Frequency (min): 2-5 (Armida Tari, RN) Quality: Mild (Armida Tari, RN) Duration (sec): 60-70 (Armida Tari, RN) Pattern: Normal: <= 5 Contractions in 10 Minutes (Armida Tari, RN) Resting Tone (Palpate): Relaxed (Armida Tari, RN) Datetime: 08/27/2016 20:22 Monitor Mode: External US (Jesica Sam, RN) FHR Baseline Rate : 130 (Jesica Sam, RN) Variability: Moderate 6-25 bpm (Jesica Sam, RN) Accelerations: 15X15 (Jesica Sam, RN) Decelerations: None (Jesica Sam, RN) FHR Baseline Rate : 125 (Jesica Sam, RN) Variability: Moderate 6-25 bpm (Jesica Sam, RN) Accelerations: 15X15 (Jesica Sam, RN) Decelerations: None (Jesica Sam, RN) Datetime: 08/27/2016 20:15 Monitor Mode: External (Armida Tari, RN) Frequency (min): 2-6 (Armida Tari, RN) Quality: Mild (Armida Tari, RN) Duration (sec): 50-80 (Armida Tari, RN) Pattern: Normal: <= 5 Contractions in 10 Minutes (Armida Tari, RN) Resting Tone (Palpate): Relaxed (Armida Tari, RN) Monitor Mode: External US (Jesica Sam, RN) Monitor Mode: External US (Armida Tari, RN) FHR Baseline Rate : 130 (Armida Tari, RN) FHR Baseline Changes: No Baseline Change (Armida Tari, RN) Variability: Moderate 6-25 bpm (Jesica Sam, RN) Variability: Moderate 6-25 bpm (Armida Tari, RN) Accelerations: 15X15 (Jesica Sam, RN) Accelerations: 15X15 (Armida Tari, RN) Decelerations: None (Jesica Sam, RN) Decelerations: None (Armida Tari, RN) Monitor Mode: External US (Armida Tari, RN) FHR Baseline Rate : 135 (Armida Tari, RN) FHR Baseline Changes: No Baseline Change (Armida Tari, RN) Variability: Moderate 6-25 bpm (Armida Tari, RN) Accelerations: 15X15 (Armida Tari, RN) Decelerations: None (Armida Tari, RN) Datetime: 08/27/2016 20:11 Communication Comments: Pt. made aware of POC at this time and verbalizes understadning (Jesica Vargas, BAUDILIO) Communication Comments: Dr. Mendoza on unit and updated on pt. status, toco tracing, and pain level. Orders received to keep pt. back on L_D unless pt. stops nicholas. (Jesica Vargas, BAUDILIO)
[2016-08-28] MEDS ORDERED: HYDROXYZINE PAMOATE 50 MG CAPSULE PO SCH (22:00)
--- NOTE | 2016-09-10 13:16 | Admission Physical ---
Datetime Report Generated by CHRIS: 09/10/2016 13:16 Chief Complaint: Uterine Contractions Admit Plan: Admit to Unit; Initiate Labor Protocol General: Normal HEENT: Normal Neurologic: Normal Thyroid: Normal Heart: Normal Lungs: Normal Breast: Deferred Back: Normal Abdomen: Normal Genitourinary Exam: Normal Extremities: Normal DTRs: Normal Pelvic Type: Adequate Physical Exam Comments: pelvis proven to 8#10oz Vital Signs: Reviewed; Within Normal Limits Dilatation: 3 Effacement: 80 Station: -1 Membranes: Intact Monitoring: External US FHR- Baseline: 130 Variability: Moderate 6-25bpm Accelerations: 15X15 Decelerations: None FHR Category: Category I Presentation: Vertex Variability: Moderate 6-25bpm Accelerations: 15X15 Decelerations: None FHR Category: Category I Presentation: Breech
--- NOTE | 2016-09-10 13:16 | Admission Physical ---
Datetime Report Generated by CPN: 09/10/2016 13:15 CURRENT ADMISSION Chief Complaint: Uterine Contractions Admit Plan: Admit to Unit; Initiate Labor Protocol ALLERGIES Medication Allergies: No Medication Allergies: No Known Allergies (08/27/2016) Latex: No Latex Allergies Food Allergies: NA Environmental Allergies: NA OBSTETRICAL HISTORY EDC: 10/11/2016 00:00 : 3 Para: 2 Term: 2 : 0 SAB: 0 IAB: 0 Ectopic: 0 Livin Cesareans: 0 VBACs: 0 Multiple Births: 1 Gestational Diabetes: No Rh Sensitization: No Incompetent Cervix: No NAVID: No Infertility: No ART Treatment: No Uterine Anomaly: No IUGR: No Hx Previous C/S: No Macrosomia: No Hx Loss/Stillborn: No PIH: No Hx : No Placenta Previa/Abruption: No Depression/PP Depression: No PTL/PROM: No Post Hemorrhage: No Current Procedures: Ultrasound; NST Obstetrical History Comments: 04/10/2011- vaginal delivery 8lbs 08/14/2014- vaginal delivery 8 lbs 10 oz G3: current chris twins marginal insertion marginal insertion of twin A SEE RECORDS Alcohol: No Marijuana : No Cocaine: No Other Illicit Drugs: No Cigarettes: Former Smoker. [id number] MEDICAL HISTORY Diabetes: No Blood Transfusion: No Pulmonary Disease (Asthma, TB): No Breast Disease: No Hypertension: No Motor Vehicle License Clerk Surgery: No Heart Disease: No Hosp/Surgery: No Autoimmune Disorder: No Anesthetic Complications: No Kidney Disease: No Abnormal Pap Smear: No Neuro/Epilepsy: No Psychiatric Disorders: No Other Medical Diseases: No Hepatitis/Liver Disease: No Significant Family History: No Varicosities/Phlebitis: No Trauma/Violence : No Thyroid Dysfunction: No INFECTIOUS HISTORY Gonorrhea: No Genital Herpes: No Chlamydia: No Tuberculosis: No Syphilis: No Hepatitis: No HIV/AIDS Exposure: No Rash or Viral Illness: No HPV: No PHYSICAL EXAM General: Normal HEENT: Normal Neurologic: Normal Thyroid: Normal Heart: Normal Lungs: Normal Breast: Deferred Back: Normal Abdomen: Normal Genitourinary Exam: Normal Extremities: Normal DTRs: Normal Pelvic Type: Adequate Physical Exam Comments: pelvis proven to 8#10oz Vital Signs: Reviewed; Within Normal Limits VAGINAL EXAM Dilatation: 3 Effacement: 80 Station: -1 MEMBRANES Membranes: Intact FETUS A EGA: 33.4 Monitoring: External US FHR- Baseline: 130 Variability: Moderate 6-25bpm Accelerations: 15X15 Decelerations: None FHR Category: Category I Presentation: Vertex Admit Comment: 31yo (h/o FTSVD x 2) presents for ctx q 4-5 minutes for the last several hours. Cvx in office on 08/17 was closed/th/hi/post. GBS unknown due to ega. Cvx is 3/80/-1 with significant change from exam approx 1 wks ago. Pt appears to be in discomfort from ctx. Bedside US with Baby A vtx on maternal right and Baby B breech on maternal left. Reviewed need for observation at this time due to and poss labor with TIUP DC/DA. D/w pt possible modes of delivery including vaginal delivery with version of 2nd baby vs vaginal delivery with uable to breech extraction if needed vs C/s vs C/s for 2nd twin if breech extraction required. pt and her are going to discuss options and will notify us of their decision. Reviewed r/b/a to all of above. BMZ given and PCN to be initiated for GBS prophy. IVF started due to dehydration on UA. 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 MFM US noted marginal cord insertion for Twin A. Admit for observation now and if cervical change noted may need to proceed with delivery. No active management at this time. FETUS B Monitoring: External US Variability: Moderate 6-25bpm Accelerations: 15X15 Decelerations: None FHR Category: Category I Presentation: Breech PLANS FOR LABOR AND DELIVERY Labor and Delivery: None Pain Management: Epidural Feeding Preference: Breast Benefit of Breast Feed Discussed: Yes Circumcision: Yes INFORMED CONSENT Informed Consent Obtained: Vaginal Delivery; Section Delivery; Vacuum/Forceps Assist; Risks, Benefits and Alternatives Discussed Signature: with User ID: [email or web address]
--- NOTE | 2016-09-10 13:23 | Admission Physical ---
Datetime Report Generated by CPN: 09/10/2016 13:23 CURRENT ADMISSION Chief Complaint: Uterine Contractions Admit Plan: Admit to Unit; Initiate Labor Protocol ALLERGIES Medication Allergies: No Medication Allergies: No Known Allergies (08/27/2016) Latex: No Latex Allergies Food Allergies: NA Environmental Allergies: NA OBSTETRICAL HISTORY EDC: 10/11/2016 00:00 : 3 Para: 2 Term: 2 : 0 SAB: 0 IAB: 0 Ectopic: 0 Livin Cesareans: 0 VBACs: 0 Multiple Births: 1 Gestational Diabetes: No Rh Sensitization: No Incompetent Cervix: No NAVID: No Infertility: No ART Treatment: No Uterine Anomaly: No IUGR: No Hx Previous C/S: No Macrosomia: No Hx Loss/Stillborn: No PIH: No Hx : No Placenta Previa/Abruption: No Depression/PP Depression: No PTL/PROM: No Post Hemorrhage: No Current Procedures: Ultrasound; NST Obstetrical History Comments: 04/10/2011- vaginal delivery 8lbs 08/14/2014- vaginal delivery 8 lbs 10 oz G3: current chris twins marginal insertion marginal insertion of twin A SEE RECORDS Alcohol: No Marijuana : No Cocaine: No Other Illicit Drugs: No Cigarettes: Former Smoker. 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: No Heart Disease: No Hosp/Surgery: No Autoimmune Disorder: No Anesthetic Complications: No Kidney Disease: No Abnormal Pap Smear: No Neuro/Epilepsy: No Psychiatric Disorders: No Other Medical Diseases: No Hepatitis/Liver Disease: No Significant Family History: No Varicosities/Phlebitis: No Trauma/Violence : No Thyroid Dysfunction: No INFECTIOUS HISTORY Gonorrhea: No Genital Herpes: No Chlamydia: No Tuberculosis: No Syphilis: No Hepatitis: No HIV/AIDS Exposure: No Rash or Viral Illness: No HPV: No PHYSICAL EXAM General: Normal HEENT: Normal Neurologic: Normal Thyroid: Normal Heart: Normal Lungs: Normal Breast: Deferred Back: Normal Abdomen: Normal Genitourinary Exam: Normal Extremities: Normal DTRs: Normal Pelvic Type: Adequate Physical Exam Comments: pelvis proven to 8#10oz Vital Signs: Reviewed; Within Normal Limits VAGINAL EXAM Dilatation: 3 Effacement: 80 Station: -1 MEMBRANES Membranes: Intact FETUS A EGA: 33.4 Monitoring: External US FHR- Baseline: 130 Variability: Moderate 6-25bpm Accelerations: 15X15 Decelerations: None FHR Category: Category I Presentation: Vertex Admit Comment: 31yo (h/o FTSVD x 2) presents for ctx q 4-5 minutes for the last several hours. Cvx in office on 08/17 was closed/th/hi/post. GBS unknown due to ega. Cvx is 3/80/-1 with significant change from exam approx 1 wks ago. Pt appears to be in discomfort from ctx. Bedside US with Baby A vtx on maternal right and Baby B breech on maternal left. Reviewed need for observation at this time due to and poss labor with TIUP DC/DA. D/w pt possible modes of delivery including vaginal delivery with version of 2nd baby vs vaginal delivery with uable to breech extraction if needed vs C/s vs C/s for 2nd twin if breech extraction required. pt and her are going to discuss options and will notify us of their decision. Reviewed r/b/a to all of above. BMZ given and PCN to be initiated for GBS prophy. IVF started due to dehydration on UA. 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 MFM US noted marginal cord insertion for Twin A. Admit for observation now and if cervical change noted may need to proceed with delivery. No active management at this time. FETUS B Monitoring: External US Variability: Moderate 6-25bpm Accelerations: 15X15 Decelerations: None FHR Category: Category I Presentation: Breech PLANS FOR LABOR AND DELIVERY Labor and Delivery: None Pain Management: Epidural Feeding Preference: Breast Benefit of Breast Feed Discussed: Yes Circumcision: Yes INFORMED CONSENT Informed Consent Obtained: Vaginal Delivery; Section Delivery; Vacuum/Forceps Assist; Risks, Benefits and Alternatives Discussed Signature: with User ID: [email or web address]
--- NOTE | 2016-09-11 06:17 | L&D General Admission ---
General Admit Datetime Report Generated by CPN: 09/11/2016 06:00 INFORMATION Patient Age: 31 (08/02/2016 13:04:QS system process) EDC: 10/11/2016 00:00 (08/27/2016 05:27:Imain Wadsworth RN) : 3 (08/27/2016 05:27:Imani Wadsworth RN) Para: 2 (08/28/2016 09:54:Nguyen Menchaca RN) Term: 2 (08/27/2016 05:27:KHARI Black) : 0 (08/27/2016 05:27:KHARI Black) Spontaneous Abortions: 0 (08/27/2016 05:27:KHARI Black) Induced Abortions: 0 (08/27/2016 05:27:KHARI Black) Livin (08/27/2016 05:27:Imani Wadsworth RN) Cesareans: 0 (08/27/2016 05:27:KHARI Black) VBACs: 0 (08/27/2016 05:27:KHARI Black) Ectopic: 0 (08/27/2016 05:27:KHARI Black) Multiple Births: 1 (08/27/2016 05:27:KHARI Black) Baby, Number in Womb: 2 (08/28/2016 09:54:Nguyen Menchaca RN) CARE Primary Entertainment Reporter: [facility] (08/27/2016 05:27:Imani Wadsworth RN) Month of 1st Visit: february (08/27/2016 05:27:KHARI Black) Adequate Care: Yes (08/27/2016 05:27:Imani Wadsworth RN) Prepregnancy Weight (lb): 168 (08/27/2016 05:27:KHARI Black) Prepregnancy Weight (kg): 76.4 (08/27/2016 05:27:QS system process) Height (in): 65 (08/27/2016 05:35:QS system process) ALLERGIES Medication Allergy: No (08/27/2016 05:27:Crystal Ermelinda RN) Medication Allergies: No Known Allergies (08/27/2016) (08/27/2016 05:35:QS system process) Latex Allergy: No Latex Allergies (08/27/2016 05:27:Crystal Ermelinda, RN) Food Allergies: NA (08/27/2016 05:27:Crystal Ermelinda RN) Environmental Allergies: NA (08/27/2016 05:27:Crystal Humble, RN) COMMUNICATION Primary Language: Italian (08/27/2016 05:27:Crystal Ermelinda RN) Communication Barrier(s): None (08/27/2016 05:27:Crystal Humble, RN) DEMOGRAPHICS Address: [address] [place] [id number] (08/02/2016 13:04:QS system process) Zipcode: [address] (08/02/2016 13:04:QS system process) Home (08/02/2016 13:04:QS system process) SSN: [id number] (08/02/2016 13:04:QS system process) Next of Kin Name: CYNTHIA SMITH (08/02/2016 13:04:QS system process) Next of Kin (08/02/2016 13:04:QS system process) Next of Kin Relationship: SPO (08/02/2016 13:04:QS system process) Date of : 1985 (08/02/2016 13:04:QS system process) Marital Status: (08/02/2016 13:04:QS system process) Sex: Female (08/02/2016 13:04:QS system process) Race: (08/02/2016 13:04:QS system process) Ethnicity: Non- or (08/02/2016 13:04:QS system process) Mandaeism: Denominational (08/02/2016 13:04:QS system process) DRUG AND ALCOHOL USE Alcohol: No (08/27/2016 05:27:Imani Wadsworth RN) Cigarettes: Former Smoker. [id number] (08/27/2016 05:27:Imani Wadsworth RN) Marijuana: No (08/27/2016 05:27:Imain Wadsworth RN) Cocaine: No (08/27/2016 05:27:Imani Wadsworth RN) Other Illicit Drugs: No (08/27/2016 05:27:Imani Wadsworth RN) VACCINE HISTORY Influenza Vaccine: No (08/27/2016 05:27:Imani Wadsworth RN) Pneumococcal Vaccine: No (08/27/2016 05:27:Imani Wadsworth RN) Tetanus Vaccine: No (08/27/2016 05:27:Imani Wadsworth RN) Tdap Vaccine: Yes (08/27/2016 05:27:Imani Wadsworth RN) Tdap Date: 07/21/2016 (08/27/2016 05:27:Imani Wadsworth RN) Hepatitis B Vaccine: No (08/27/2016 05:27:Imani Wadsworth RN) Executive Secretary: Other (08/27/2016 05:27:Imani Wadsworth RN) Feeding Preference: Breast (08/27/2016 05:27:Imani Wadsworth RN) Benefit of Breast Feed Discussed: Yes (08/27/2016 05:27:Imani Wadsworth RN) Circumcision: Yes (08/27/2016 05:27:Imani Wadsworth RN) Classes Attended: No (08/27/2016 05:27:Imani Wadsworth RN) Tubal Ligation: No (08/27/2016 05:27:Imani Wadsworth RN) Tubal Authorization Signed: N/A (08/27/2016 05:27:Imani Wadsworth RN) Consent: N/A (08/27/2016 05:27:Imani Wadsworth RN) Consent Signed: N/A (08/27/2016 05:27:Imani Wadsworth RN) Pain Management Plans: Epidural (08/27/2016 05:27:Imani Wadsworth RN) Plans for Labor and Delivery: None (08/27/2016 05:27:Imani Wadsworth RN) Support Person: Porfirio Smith (08/27/2016 05:27:Imani Wadsworth RN) Support Person Relationship: (08/27/2016 05:27:Imani Wadsworth RN) Cultural/Spritual Practice: Yes (08/27/2016 05:27:Imani Wadsworth RN) Spir/Cult Dietary Needs: Yes (08/27/2016 05:27:Imani Wadsworth RN) LIVING SITUATION/DISCHARGE PLAN Living Arrangements: House (08/27/2016 05:27:Imani Wadsworth RN) Adequate Access to:: Electric; Heat; Refrigeration; Plumbing/Running water; Phone; Transportation (08/27/2016 05:27:Imani Wadsworth RN) WIC Program: Yes (08/27/2016 05:27:Imani Wadsworth RN) Discharge Decorator Lighting Fixtures Person: Porfirio Smith (08/27/2016 05:27:Imani Wadsworth RN) Person to Help after Discharge: Porfirio Smith (08/27/2016 05:27:Imani Wadsworth RN) Currently Using Commun Resources: Yes (08/27/2016 05:27:Imani Wadsworth RN) Specify Current Resource Used: Food stamps (08/27/2016 05:27:Imani Wadsworth RN) Outside Agency/Dining Services Director: Yes (08/27/2016 05:27:Imani Wadsworth RN) Car Seat for Discharge: Yes (08/27/2016 05:27:Imani Wadsworth RN) Adoption Requested: No (08/27/2016 05:27:Imani Wadsworth RN) Pt Contact w/infant Post : N/A (08/27/2016 05:27:Imani Wadsworth RN) LABS Blood Type: A Positive (08/27/2016 05:27:Imani Wadsworth RN) Antibody Screen: Negative (08/27/2016 05:27:Imani Wadsworth RN) Gonorrhea: Negative (08/27/2016 05:27:Imani Wadsworth RN) Chlamydia: Negative (08/27/2016 05:27:Imani Wadsworth RN) Rubella: Immune (08/27/2016 05:27:Imani Wadsworth RN) OB/PREVIOUS HISTORY Previous Procedures: NST (08/27/2016 05:27:Imani Wadsworth RN) Current Procedures: Ultrasound; NST (08/27/2016 05:27:Imani Wadsworth RN) History of Previous : No (08/27/2016 05:27:Imani Wadsworth RN) History of Gestational Diabetes: No (08/27/2016 05:27:Imani Wadsworth RN) History of PIH: No (08/27/2016 05:27:Imani Wadsworth RN) History of Incompetent Cervix: No (08/27/2016 05:27:Imani Wadsworth RN) History of Placenta Previa/Abrup: No (08/27/2016 05:27:Imani Wadsworth RN) History of Macrosomia: No (08/27/2016 05:27:Imani Wadsworth RN) History of IUGR: No (08/27/2016 05:27:Imani Wadsworth RN) History of Hemorrhage: No (08/27/2016 05:27:Imani Wadsworth RN) History of Loss/Stillborn: No (08/27/2016 05:27:Imani Wadsworth RN) History of : No (08/27/2016 05:27:Imani Wadsworth RN) History of D (Rh) Sensitization: No (08/27/2016 05:27:Imani Wadsworth RN) History Recurrent Loss/Stillborn: No (08/27/2016 05:27:Imani Wadsworth RN) History Depression/PP Depression: No (08/27/2016 05:27:Imani Wadsworth RN) History of Uterine Anomaly/NAVID: No (08/27/2016 05:27:Imani Wadsworth RN) History of Infertility: No (08/27/2016 05:27:Imani Wadsworth RN) History of ART Treatment: No (08/27/2016 05:27:Imani Wadsworth RN) History of NAVID: No (08/27/2016 05:27:Imani Wadsworth RN) Comments Obstetrical History: 04/10/2011- vaginal delivery 8lbs 08/14/2014- vaginal delivery 8 lbs 10 oz G3: current chris twins marginal insertion marginal insertion of twin A (08/27/2016 05:27:Jesica Vargas RN) MEDICAL HISTORY Med Hx Diabetes: No (08/27/2016 05:27:Imani Wadsworth RN) Med Hx Hypertension: No (08/27/2016 05:27:Imani Wadsworth RN) Med Hx Heart Disease: No (08/27/2016 05:27:Imani Wadsworth RN) Med Hx Autoimmune Disorder: No (08/27/2016 05:27:Imani Wadsworth RN) Med Hx Kidney Disease/UTI: No (08/27/2016 05:27:Imani Wadsworth RN) Med Hx Neurologic/Epilepsy: No (08/27/2016 05:27:Imani Wadsworth RN) Med Hx Psychiatric Disorders: No (08/27/2016 05:27:Imani Wadsworth RN) Med Hx Hepatitis/Liver Disease: No (08/27/2016 05:27:Imani Wadsworth RN) Med Hx Varicosities/Phlebitis: No (08/27/2016 05:27:Imani Wadsworth RN) Med Hx Thyroid Dysfunction: No (08/27/2016 05:27:Imani Wadsworth RN) Med Hx Trauma/Violence: No (08/27/2016 05:27:Imani Wadsworth RN) Med Hx Blood Transfusion: No (08/27/2016 05:27:Imani Wadsworth RN) Med Hx Pulmonary (Asthma,TB): No (08/27/2016 05:27:Imani Wadsworth RN) Med Hx Breast: No (08/27/2016 05:27:Imani Wadsworth RN) Med Hx TEMPLATE 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: No (08/27/2016 05:27:Imani Wadsworth RN) Med Hx Hospitalization/Surgery: No (08/27/2016 05:27:Imani Wadsworth RN) Med Hx Anesthetic Complications: No (08/27/2016 05:27:Imani Wadsworth RN) Med Hx Abnormal Pap Smear: No (08/27/2016 05:27:Imani Wadsworth RN) Other Medical Diseases: No (08/27/2016 05:27:Imani Wadsworth RN) Med Hx Significant Family Hx: No (08/27/2016 05:27:Imani Wadsworth RN) INFECTIOUS HISTORY Inf Hx Gonorrhea: No (08/27/2016 05:27:Imani Wadsworth RN) Inf Hx Chlamydia: No (08/27/2016 05:27:Imani Wadsworth RN) Inf Hx Syphilis: No (08/27/2016 05:27:Imani Wadsworth RN) Inf Hx HIV/AIDS: No (08/27/2016 05:27:Imani Wadsworth RN) Inf Hx Human Papilloma Virus: No (08/27/2016 05:27:Imani Wadsworth RN) Inf Hx Pt/Partner Genital Herpes: No (08/27/2016 05:27:Imani Wadsworth RN) Inf Hx Tuberculosis/Exposure: No (08/27/2016 05:27:Imani Wadsworth RN) Inf Hx Hepatitis B,C: No (08/27/2016 05:27:Imani Wadsworth RN) Inf Hx Rash or Viral Illness: No (08/27/2016 05:27:Imani Wadsworth RN) GENETIC HISTORY Gen Hx Age >=35 at [place]: No (08/27/2016 05:27:Imani Wadsworth RN) Gen Hx Thalassemia: No (08/27/2016 05:27:Imani Wadsworth RN) Gen Hx Congenital Heart Defect: No (08/27/2016 05:27:Imani Wadsworth RN) Gen Hx Neural Tube Defect: No (08/27/2016 05:27:Imani Wadsworth RN) Gen Hx Down's Syndrome: No (08/27/2016 05:27:Imani Wadsworth RN) Gen Hx Samuel-Sachs: No (08/27/2016 05:27:Imani Wadsworth RN) Gen Hx Francisco: No (08/27/2016 05:27:Imani Wadsworth RN) Gen Hx Familial Dysautonomia: No (08/27/2016 05:27:Imani Wadsworth RN) Gen Hx Sickle Cell Disease/Trait: No (08/27/2016 05:27:Imani Wadsworth RN) Gen Hx Hemophilia/Blood Disorder: No (08/27/2016 05:27:Imani Wadsworth RN) Gen Hx Muscular Dystrophy: No (08/27/2016 05:27:Imani Wadsworth RN) Gen Hx Cystic Fibrosis: No (08/27/2016 05:27:Imani Wadsworth RN) Gen Hx Huntingtons Chorea: No (08/27/2016 05:27:Imani Wadsworth RN) Gen Hx Mental Retardation/Autism: No (08/27/2016 05:27:Imani Wadsworth RN) Gen Hx Tested for Fragile X: No (08/27/2016 05:27:Imani Wadsworth RN) Gen Hx Other Inher/Chromosomal: No (08/27/2016 05:27:Imani Wadsworth RN) Gen Hx Maternal Metabolic DO: No (08/27/2016 05:27:Imani Wadsworth RN) Gen Hx Pt Father or FOB Defect: No (08/27/2016 05:27:Imani Wadsworth RN) Gen Hx Other Genetic History: No (08/27/2016 05:27:Imani Wadsworth RN) Gen Hx Drugs/Meds since LMP: No (08/27/2016 05:27:Imani Wadsworth RN)
--- NOTE | 2016-09-11 06:17 | L&D Current Admission ---
Current Admit Datetime Report Generated by CPN: 09/11/2016 06:00 ADMISSION INFORMATION Current Admit Date/Time: 08/27/2016 18:04 (08/27/2016 05:31:KHARI Black) Reason for Admission: Labor (08/27/2016 05:31:KHARI Black) Chief Complaint: Contractions (08/27/2016 05:31:Imani Wadsworth RN) EGA per Dates: 33.4 (08/27/2016 05:31:QS system process) Method of Arrival: Ambulatory (08/27/2016 05:31:KHARI Black) Admitted From: Antepartum Unit (08/27/2016 05:31:KHARI Black) Reason for Induction: Not Applicable (08/27/2016 05:31:KHARI Black) Records Available: Yes (08/27/2016 05:31:KHARI Black) General Admission Information: Reviewed (08/27/2016 05:31:KHARI Black) General Admission Reviewed By: Manuel LUICA (08/27/2016 05:31:KHARI Black) BELONGINGS/ADVANCED DIRECTIVES Valuables/Personal Effects: None (08/27/2016 05:31:KHARI Black) Disposition of Belongings: Kept with Patient (08/27/2016 05:31:KHARI Black) Advance Direct for Healthcare: No, and Wants No Information (08/27/2016 05:31:KHARI Black) Durable Power of Drying Equipment Operator: No (08/27/2016 05:31:KHARI Black) Living Will: No (08/27/2016 05:31:KHARI Black) Organ Donor: Undecided (08/27/2016 05:31:KHARI Black) Pt Rights Information Given: Yes (08/27/2016 05:31:KHARI Black) Pt Understands Pt Rights: Yes (08/27/2016 05:31:KHARI Black) LEARNING ASSESSMENT Knowledge Level: Understands L_D Process; Understands Care Activities (08/27/2016 05:31:KHARI Black) Barriers to Learning: None (08/27/2016 05:31:KHARI Black) Learning Readiness: Motivated (08/27/2016 05:31:KHARI Black) Learns Best By: 1 to 1 Instruction; Reading; Videos; Group Discussion; Demonstration (08/27/2016 05:31:KAHRI Black) Learning Needs: Labor and Delivery Process; Pain Management; Symptoms to Report; Treatment Plan; Medication; Diagnosis; Nutrition; Equipment; Infant Care; Community Resources (08/27/2016 05:31:KHARI Black) DOMESTIC VIOLANCE SCREENING Dom Viol Threatened/Hurt: No (08/27/2016 05:31:KHARI Black) Hx of Abuse/Neglect past 2yrs: No (08/27/2016 05:31:KHARI Black) Feel Unsafe Going Home: No (08/27/2016 05:31:KHARI Black) Addt'l Observ Indicating Abuse: No (08/27/2016 05:31:KHARI Black) Reason Unable to Complete Screen: N/A, Screen Completed (08/27/2016 05:31:KHARI Black) Considered Personal Harm/Suicide: No (08/27/2016 05:31:KHARI Black) NUTRITIONAL/FUNCTIONAL SCREENING Problem with Appetite >5 Days: No (08/27/2016 05:31:KHARI Black) Chew/Swallow Difficulties: No (08/27/2016 05:31:KHARI Black) Inappropriate Wt Gain/Loss: No (08/27/2016 05:31:KHARI Black) Presence Skin Breakdown/Ulcer: No (08/27/2016 05:31:KHARI Black) Special Diet: No (08/27/2016 05:31:KHARI Black) Pt Requests Wood Block Artist Visit: No (08/27/2016 05:31:KHARI Black) Hx of Any of the Following?: N/A (08/27/2016 05:31:KHARI Black) New Diagnosis of: N/A (08/27/2016 05:31:KHARI Black) Requires Assist w/Ambulation: Hillary (08/27/2016 05:31:KHARI Black) Uses Assist Device to Ambulate: No (08/27/2016 05:31:KHARI Black) Pt Requires Help w/ADL's: Hillary (08/27/2016 05:31:KHARI Black)
--- NOTE | 2016-09-12 06:17 | L&D General Admission ---
General Admit Datetime Report Generated by CPN: 09/12/2016 06:00 INFORMATION Patient Age: 31 (08/02/2016 13:04:QS system process) EDC: 10/11/2016 00:00 (08/27/2016 05:27:Imani Wadsworth RN) : 3 (08/27/2016 05:27:Iamni Wadsworth RN) Para: 2 (08/28/2016 09:54:Nguyen Menchaca RN) Term: 2 (08/27/2016 05:27:KHARI Black) : 0 (08/27/2016 05:27:KHARI Black) Spontaneous Abortions: 0 (08/27/2016 05:27:KHARI Black) Induced Abortions: 0 (08/27/2016 05:27:KHARI Black) Livin (08/27/2016 05:27:Imani Wadsworth RN) Cesareans: 0 (08/27/2016 05:27:KHARI Black) VBACs: 0 (08/27/2016 05:27:KHARI Black) Ectopic: 0 (08/27/2016 05:27:KHARI Black) Multiple Births: 1 (08/27/2016 05:27:KHARI Black) Baby, Number in Womb: 2 (08/28/2016 09:54:Nguyen Menchaca RN) CARE Primary Research Laboratory Manager: [facility] (08/27/2016 05:27:Imani Wadsworth RN) Month of 1st Visit: february (08/27/2016 05:27:KHARI Black) Adequate Care: Yes (08/27/2016 05:27:Imani Wadsworth RN) Prepregnancy Weight (lb): 168 (08/27/2016 05:27:KHARI Black) Prepregnancy Weight (kg): 76.4 (08/27/2016 05:27:QS system process) Height (in): 65 (08/27/2016 05:35:QS system process) ALLERGIES Medication Allergy: No (08/27/2016 05:27:Crystal Ermelinda RN) Medication Allergies: No Known Allergies (08/27/2016) (08/27/2016 05:35:QS system process) Latex Allergy: No Latex Allergies (08/27/2016 05:27:Crystal Ermelinda, RN) Food Allergies: NA (08/27/2016 05:27:Crystal Ermelinda RN) Environmental Allergies: NA (08/27/2016 05:27:Crystal Sugarloaf, RN) COMMUNICATION Primary Language: Singaporean (08/27/2016 05:27:Crystal Ermelinda RN) Communication Barrier(s): None (08/27/2016 05:27:Crystal Sugarloaf, RN) DEMOGRAPHICS Address: [address] [place] [id number] (08/02/2016 13:04:QS system process) Zipcode: [address] (08/02/2016 13:04:QS system process) Home (08/02/2016 13:04:QS system process) SSN: [id number] (08/02/2016 13:04:QS system process) Next of Kin Name: CYNTHIA SMITH (08/02/2016 13:04:QS system process) Next of Kin (08/02/2016 13:04:QS system process) Next of Kin Relationship: SPO (08/02/2016 13:04:QS system process) Date of : 1985 (08/02/2016 13:04:QS system process) Marital Status: (08/02/2016 13:04:QS system process) Sex: Female (08/02/2016 13:04:QS system process) Race: (08/02/2016 13:04:QS system process) Ethnicity: Non- or (08/02/2016 13:04:QS system process) Gnosticist: Buddhism (08/02/2016 13:04:QS system process) DRUG AND ALCOHOL USE Alcohol: No (08/27/2016 05:27:Imani Wadsworth RN) Cigarettes: Former Smoker. [id number] (08/27/2016 05:27:Imani Wadsworth RN) Marijuana: No (08/27/2016 05:27:Imani Wadsworth RN) Cocaine: No (08/27/2016 05:27:Imani Wadsworth RN) Other Illicit Drugs: No (08/27/2016 05:27:Imani Wadsworth RN) VACCINE HISTORY Influenza Vaccine: No (08/27/2016 05:27:Imani Wadsworth RN) Pneumococcal Vaccine: No (08/27/2016 05:27:Imani Wadsworth RN) Tetanus Vaccine: No (08/27/2016 05:27:Imani Wadsworth RN) Tdap Vaccine: Yes (08/27/2016 05:27:Imani Wadsworth RN) Tdap Date: 07/21/2016 (08/27/2016 05:27:Imani Wadsworth RN) Hepatitis B Vaccine: No (08/27/2016 05:27:Imani Wadsworth RN) Vp Ad Sales [place]: Other (08/27/2016 05:27:Imani Wadsworth RN) Feeding Preference: Breast (08/27/2016 05:27:Imani Wadsworth RN) Benefit of Breast Feed Discussed: Yes (08/27/2016 05:27:Imani Wadsworth RN) Circumcision: Yes (08/27/2016 05:27:Imani Wadsworth RN) Classes Attended: No (08/27/2016 05:27:Imani Wadsworth RN) Tubal Ligation: No (08/27/2016 05:27:Imani Wadsworth RN) Tubal Authorization Signed: N/A (08/27/2016 05:27:Imani Wadsworth RN) Consent: N/A (08/27/2016 05:27:Imani Wadsworth RN) Consent Signed: N/A (08/27/2016 05:27:Imani Wadsworth RN) Pain Management Plans: Epidural (08/27/2016 05:27:Imani Wadsworth RN) Plans for Labor and Delivery: None (08/27/2016 05:27:Imani Wadsworth RN) Support Person: Porfirio Smith (08/27/2016 05:27:Imani Wadsworth RN) Support Person Relationship: (08/27/2016 05:27:Imani Wadsworth RN) Cultural/Spritual Practice: Yes (08/27/2016 05:27:Imani Wadsworth RN) Spir/Cult Dietary Needs: Yes (08/27/2016 05:27:Imani Wadsworth RN) LIVING SITUATION/DISCHARGE PLAN Living Arrangements: House (08/27/2016 05:27:Imani Wadsworth RN) Adequate Access to:: Electric; Heat; Refrigeration; Plumbing/Running water; Phone; Transportation (08/27/2016 05:27:Imani Wadsworth RN) WIC Program: Yes (08/27/2016 05:27:Imani Wadsworth RN) Discharge Card Grinder Helper Person: Porfirio Smith (08/27/2016 05:27:Imani Wadsworth RN) Person to Help after Discharge: Porfirio Smith (08/27/2016 05:27:Imani Wadsworth RN) Currently Using Commun Resources: Yes (08/27/2016 05:27:Imani Wadsworth RN) Specify Current Resource Used: Food stamps (08/27/2016 05:27:Imani Wadsworth RN) Outside Agency/Physician Obstetrician: Yes (08/27/2016 05:27:Imani Wadsworth RN) Car Seat for Discharge: Yes (08/27/2016 05:27:Imani Wadsworth RN) Adoption Requested: No (08/27/2016 05:27:Imani Wadsworth RN) Pt Contact w/infant Post : N/A (08/27/2016 05:27:Imani Wadsworth RN) LABS Blood Type: A Positive (08/27/2016 05:27:Imani Wadsworth RN) Antibody Screen: Negative (08/27/2016 05:27:Imani Wadsworth RN) Gonorrhea: Negative (08/27/2016 05:27:Imani Wadsworth RN) Chlamydia: Negative (08/27/2016 05:27:Imani Wadsworth RN) Rubella: Immune (08/27/2016 05:27:Imani Wadsworth RN) OB/PREVIOUS HISTORY Previous Procedures: NST (08/27/2016 05:27:Imani Wadsworth RN) Current Procedures: Ultrasound; NST (08/27/2016 05:27:Imani Wadsworth RN) History of Previous : No (08/27/2016 05:27:Imani Wadsworth RN) History of Gestational Diabetes: No (08/27/2016 05:27:Imani Wadsworth RN) History of PIH: No (08/27/2016 05:27:mIani Wadsworth RN) History of Incompetent Cervix: No (08/27/2016 05:27:Imani Wadsworth RN) History of Placenta Previa/Abrup: No (08/27/2016 05:27:Imani Wadsworth RN) History of Macrosomia: No (08/27/2016 05:27:Imani Wadsworth RN) History of IUGR: No (08/27/2016 05:27:Imani Wadsworth RN) History of Hemorrhage: No (08/27/2016 05:27:Imani Wadsworth RN) History of Loss/Stillborn: No (08/27/2016 05:27:Imani Wadsworth RN) History of : No (08/27/2016 05:27:Imani Wadsworth RN) History of D (Rh) Sensitization: No (08/27/2016 05:27:Imani Wadsworth RN) History Recurrent Loss/Stillborn: No (08/27/2016 05:27:Imani Wadsworth RN) History Depression/PP Depression: No (08/27/2016 05:27:Imani Wadsworth RN) History of Uterine Anomaly/NAVID: No (08/27/2016 05:27:Imani Wadsworth RN) History of Infertility: No (08/27/2016 05:27:Imani Wadsworth RN) History of ART Treatment: No (08/27/2016 05:27:Imani Wadsworth RN) History of NAVID: No (08/27/2016 05:27:Imani Wadsworth RN) Comments Obstetrical History: 04/10/2011- vaginal delivery 8lbs 08/14/2014- vaginal delivery 8 lbs 10 oz G3: current chris twins marginal insertion marginal insertion of twin A (08/27/2016 05:27:Jesica Vargas RN) MEDICAL HISTORY Med Hx Diabetes: No (08/27/2016 05:27:Imani Wadsworth RN) Med Hx Hypertension: No (08/27/2016 05:27:Imani Wadsworth RN) Med Hx Heart Disease: No (08/27/2016 05:27:Imani Wadsworth RN) Med Hx Autoimmune Disorder: No (08/27/2016 05:27:Imani Wadsworth RN) Med Hx Kidney Disease/UTI: No (08/27/2016 05:27:Imani Wadsworth RN) Med Hx Neurologic/Epilepsy: No (08/27/2016 05:27:Imani Wadsworth RN) Med Hx Psychiatric Disorders: No (08/27/2016 05:27:Imani Wadsworth RN) Med Hx Hepatitis/Liver Disease: No (08/27/2016 05:27:Imani Wadsworth RN) Med Hx Varicosities/Phlebitis: No (08/27/2016 05:27:Imani Wadsworth RN) Med Hx Thyroid Dysfunction: No (08/27/2016 05:27:Imani Wadsworth RN) Med Hx Trauma/Violence: No (08/27/2016 05:27:Imani Wadsworth RN) Med Hx Blood Transfusion: No (08/27/2016 05:27:Imani Wadsworth RN) Med Hx Pulmonary (Asthma,TB): No (08/27/2016 05:27:Imani Wadsworth RN) Med Hx Breast: No (08/27/2016 05:27:Imani Wadsworth RN) Med Hx BRICKLAYER TENDER Surgery: No (08/27/2016 05:27:Imani Wadsworth RN) Med Hx Hospitalization/Surgery: No (08/27/2016 05:27:Imani Wadsworth RN) Med Hx Anesthetic Complications: No (08/27/2016 05:27:Imani Wadsworth RN) Med Hx Abnormal Pap Smear: No (08/27/2016 05:27:Imani Wadsworth RN) Other Medical Diseases: No (08/27/2016 05:27:Imani Wadsworth RN) Med Hx Significant Family Hx: No (08/27/2016 05:27:Imani Wadsworth RN) INFECTIOUS HISTORY Inf Hx Gonorrhea: No (08/27/2016 05:27:Imani Wadsworth RN) Inf Hx Chlamydia: No (08/27/2016 05:27:Imani Wadsworth RN) Inf Hx Syphilis: No (08/27/2016 05:27:Imani Wadsworth RN) Inf Hx HIV/AIDS: No (08/27/2016 05:27:Imani Wadsworth RN) Inf Hx Human Papilloma Virus: No (08/27/2016 05:27:Imani Wadsworth RN) Inf Hx Pt/Partner Genital Herpes: No (08/27/2016 05:27:Imani Wadsworth RN) Inf Hx Tuberculosis/Exposure: No (08/27/2016 05:27:Imani Wadsworth RN) Inf Hx Hepatitis B,C: No (08/27/2016 05:27:Imani Wadsworth RN) Inf Hx Rash or Viral Illness: No (08/27/2016 05:27:Imani Wadsworth RN) GENETIC HISTORY Gen Hx Age >=35 at [place]: No (08/27/2016 05:27:Imani Wadsworth RN) Gen Hx Thalassemia: No (08/27/2016 05:27:Imani Wadsworth RN) Gen Hx Congenital Heart Defect: No (08/27/2016 05:27:Imani Wadsworth RN) Gen Hx Neural Tube Defect: No (08/27/2016 05:27:Imani Wadsworth RN) Gen Hx Down's Syndrome: No (08/27/2016 05:27:Imani Wadsworth RN) Gen Hx Samuel-Sachs: No (08/27/2016 05:27:Imani Wadsworth RN) Gen Hx Francisco: No (08/27/2016 05:27:Imani Wadsworth RN) Gen Hx Familial Dysautonomia: No (08/27/2016 05:27:Imani Wadsworth RN) Gen Hx Sickle Cell Disease/Trait: No (08/27/2016 05:27:Imani Wadsworth RN) Gen Hx Hemophilia/Blood Disorder: No (08/27/2016 05:27:Imani Wadsworth RN) Gen Hx Muscular Dystrophy: No (08/27/2016 05:27:Imani Wadsworth RN) Gen Hx Cystic Fibrosis: No (08/27/2016 05:27:Imani Wadsworth RN) Gen Hx Huntingtons Chorea: No (08/27/2016 05:27:Imani Wadsworth RN) Gen Hx Mental Retardation/Autism: No (08/27/2016 05:27:Imani Wadsworth RN) Gen Hx Tested for Fragile X: No (08/27/2016 05:27:Imani Wadsworth RN) Gen Hx Other Inher/Chromosomal: No (08/27/2016 05:27:Imani Wadsworth RN) Gen Hx Maternal Metabolic DO: No (08/27/2016 05:27:Imani Wadsworth RN) Gen Hx Pt Father or FOB Defect: No (08/27/2016 05:27:Imani Wadsworth RN) Gen Hx Other Genetic History: No (08/27/2016 05:27:Imani Wadsworth RN) Gen Hx Drugs/Meds since LMP: No (08/27/2016 05:27:Imani Wadsworth RN)
--- NOTE | 2016-09-12 06:17 | L&D Current Admission ---
Current Admit Datetime Report Generated by CPN: 09/12/2016 06:00 ADMISSION INFORMATION Current Admit Date/Time: 08/27/2016 18:04 (08/27/2016 05:31:KHARI Black) Reason for Admission: Labor (08/27/2016 05:31:KHARI Black) Chief Complaint: Contractions (08/27/2016 05:31:Imani Wadsworth RN) EGA per Dates: 33.4 (08/27/2016 05:31:QS system process) Method of Arrival: Ambulatory (08/27/2016 05:31:KHARI Black) Admitted From: Antepartum Unit (08/27/2016 05:31:KHARI Black) Reason for Induction: Not Applicable (08/27/2016 05:31:KHARI Black) Records Available: Yes (08/27/2016 05:31:KHARI Black) General Admission Information: Reviewed (08/27/2016 05:31:KHARI Black) General Admission Reviewed By: Manuel LUCIA (08/27/2016 05:31:KHARI Black) BELONGINGS/ADVANCED DIRECTIVES Valuables/Personal Effects: None (08/27/2016 05:31:KHARI Black) Disposition of Belongings: Kept with Patient (08/27/2016 05:31:KHARI Black) Advance Direct for Healthcare: No, and Wants No Information (08/27/2016 05:31:KHARI Black) Durable Power of Identification Clerk: No (08/27/2016 05:31:KHARI Black) Living Will: No (08/27/2016 05:31:KHARI Black) Organ Donor: Undecided (08/27/2016 05:31:KHARI Black) Pt Rights Information Given: Yes (08/27/2016 05:31:KHARI Black) Pt Understands Pt Rights: Yes (08/27/2016 05:31:KHARI Black) LEARNING ASSESSMENT Knowledge Level: Understands L_D Process; Understands Care Activities (08/27/2016 05:31:KHARI Black) Barriers to Learning: None (08/27/2016 05:31:KHARI Black) Learning Readiness: Motivated (08/27/2016 05:31:KHARI Black) Learns Best By: 1 to 1 Instruction; Reading; Videos; Group Discussion; Demonstration (08/27/2016 05:31:KHARI Black) Learning Needs: Labor and Delivery Process; Pain Management; Symptoms to Report; Treatment Plan; Medication; Diagnosis; Nutrition; Equipment; Infant Care; Community Resources (08/27/2016 05:31:KHARI Black) DOMESTIC VIOLANCE SCREENING Dom Viol Threatened/Hurt: No (08/27/2016 05:31:KHARI Black) Hx of Abuse/Neglect past 2yrs: No (08/27/2016 05:31:KHARI Black) Feel Unsafe Going Home: No (08/27/2016 05:31:KHARI Black) Addt'l Observ Indicating Abuse: No (08/27/2016 05:31:KHARI Black) Reason Unable to Complete Screen: N/A, Screen Completed (08/27/2016 05:31:KHARI Black) Considered Personal Harm/Suicide: No (08/27/2016 05:31:KHARI Black) NUTRITIONAL/FUNCTIONAL SCREENING Problem with Appetite >5 Days: No (08/27/2016 05:31:KHARI Black) Chew/Swallow Difficulties: No (08/27/2016 05:31:KHARI Black) Inappropriate Wt Gain/Loss: No (08/27/2016 05:31:KHARI Black) Presence Skin Breakdown/Ulcer: No (08/27/2016 05:31:KHARI Black) Special Diet: No (08/27/2016 05:31:KHARI Black) Pt Requests Consulting Engineer Visit: No (08/27/2016 05:31:KHARI Black) Hx of Any of the Following?: N/A (08/27/2016 05:31:KHARI Black) New Diagnosis of: N/A (08/27/2016 05:31:KHARI Black) Requires Assist w/Ambulation: Hillary (08/27/2016 05:31:KHARI Black) Uses Assist Device to Ambulate: No (08/27/2016 05:31:KHARI Black) Pt Requires Help w/ADL's: Hillary (08/27/2016 05:31:KHARI Black)
--- NOTE | 2016-09-13 06:16 | L&D General Admission ---
General Admit Datetime Report Generated by CPN: 09/13/2016 06:00 INFORMATION Patient Age: 31 (08/02/2016 13:04:QS system process) EDC: 10/11/2016 00:00 (08/27/2016 05:27:Imani Wadsworth RN) : 3 (08/27/2016 05:27:Imani Wadsworth RN) Para: 2 (08/28/2016 09:54:Nguyen Menchaca RN) Term: 2 (08/27/2016 05:27:KHARI Black) : 0 (08/27/2016 05:27:KHARI Black) Spontaneous Abortions: 0 (08/27/2016 05:27:KHARI Black) Induced Abortions: 0 (08/27/2016 05:27:KHARI Black) Livin (08/27/2016 05:27:Imani Wadsworth RN) Cesareans: 0 (08/27/2016 05:27:KHARI Black) VBACs: 0 (08/27/2016 05:27:KHARI Black) Ectopic: 0 (08/27/2016 05:27:KHARI Black) Multiple Births: 1 (08/27/2016 05:27:KHARI Black) Baby, Number in Womb: 2 (08/28/2016 09:54:Nguyen Menchaca RN) CARE Primary Tile Fitter: [facility] (08/27/2016 05:27:Imani Wadsworth RN) Month of 1st Visit: february (08/27/2016 05:27:KHARI Black) Adequate Care: Yes (08/27/2016 05:27:Imani Wadsworth RN) Prepregnancy Weight (lb): 168 (08/27/2016 05:27:KHARI Black) Prepregnancy Weight (kg): 76.4 (08/27/2016 05:27:QS system process) Height (in): 65 (08/27/2016 05:35:QS system process) ALLERGIES Medication Allergy: No (08/27/2016 05:27:Crystal Ermelinda RN) Medication Allergies: No Known Allergies (08/27/2016) (08/27/2016 05:35:QS system process) Latex Allergy: No Latex Allergies (08/27/2016 05:27:Crystal Ermelinda, RN) Food Allergies: NA (08/27/2016 05:27:Crystal Ermelinda RN) Environmental Allergies: NA (08/27/2016 05:27:Crystal Bussey, RN) COMMUNICATION Primary Language: Iraqi (08/27/2016 05:27:Crystal Ermelinda RN) Communication Barrier(s): None (08/27/2016 05:27:Crystal Bussey, RN) DEMOGRAPHICS Address: [address] [place] [id number] (08/02/2016 13:04:QS system process) Zipcode: [address] (08/02/2016 13:04:QS system process) Home (08/02/2016 13:04:QS system process) SSN: [id number] (08/02/2016 13:04:QS system process) Next of Kin Name: CYNTHIA SMITH (08/02/2016 13:04:QS system process) Next of Kin (08/02/2016 13:04:QS system process) Next of Kin Relationship: SPO (08/02/2016 13:04:QS system process) Date of : 1985 (08/02/2016 13:04:QS system process) Marital Status: (08/02/2016 13:04:QS system process) Sex: Female (08/02/2016 13:04:QS system process) Race: (08/02/2016 13:04:QS system process) Ethnicity: Non- or (08/02/2016 13:04:QS system process) Orthodox: Gnosticism (08/02/2016 13:04:QS system process) DRUG AND ALCOHOL USE Alcohol: No (08/27/2016 05:27:Imani Wadsworth RN) Cigarettes: Former Smoker. [id number] (08/27/2016 05:27:Imani Wadsworth RN) Marijuana: No (08/27/2016 05:27:Imani Wadsworth RN) Cocaine: No (08/27/2016 05:27:Imani Wadsworth RN) Other Illicit Drugs: No (08/27/2016 05:27:Imani Wadsworth RN) VACCINE HISTORY Influenza Vaccine: No (08/27/2016 05:27:Imani Wadsworth RN) Pneumococcal Vaccine: No (08/27/2016 05:27:Imani Wadsworth RN) Tetanus Vaccine: No (08/27/2016 05:27:Imani Wadsworth RN) Tdap Vaccine: Yes (08/27/2016 05:27:Imani Wadsworth RN) Tdap Date: 07/21/2016 (08/27/2016 05:27:Imani Wadsworth RN) Hepatitis B Vaccine: No (08/27/2016 05:27:Imani Wadsworth RN) Power Lineworker: Other (08/27/2016 05:27:Imani Wadsworth RN) Feeding Preference: Breast (08/27/2016 05:27:Imani Wadsworth RN) Benefit of Breast Feed Discussed: Yes (08/27/2016 05:27:Imani Wadsworth RN) Circumcision: Yes (08/27/2016 05:27:Imani Wadsworth RN) Classes Attended: No (08/27/2016 05:27:Imani Wadsworth RN) Tubal Ligation: No (08/27/2016 05:27:Imani Wadsworth RN) Tubal Authorization Signed: N/A (08/27/2016 05:27:Imani Wadsworth RN) Consent: N/A (08/27/2016 05:27:Imani Wadsworth RN) Consent Signed: N/A (08/27/2016 05:27:Imani Wadsworth RN) Pain Management Plans: Epidural (08/27/2016 05:27:Imani Wadsworth RN) Plans for Labor and Delivery: None (08/27/2016 05:27:Imani Wadsworth RN) Support Person: Porfirio Smith (08/27/2016 05:27:Imani Wadsworth RN) Support Person Relationship: (08/27/2016 05:27:Imani Wadsworth RN) Cultural/Spritual Practice: Yes (08/27/2016 05:27:Imani Wadsworth RN) Spir/Cult Dietary Needs: Yes (08/27/2016 05:27:Iamni Wadsworth RN) LIVING SITUATION/DISCHARGE PLAN Living Arrangements: House (08/27/2016 05:27:Imani Wadsworth RN) Adequate Access to:: Electric; Heat; Refrigeration; Plumbing/Running water; Phone; Transportation (08/27/2016 05:27:Imani Wadsworth RN) WIC Program: Yes (08/27/2016 05:27:Imani Wadsworth RN) Discharge Tow Truck Operator Person: Porfirio Smith (08/27/2016 05:27:Imani Wadsworth RN) Person to Help after Discharge: Porfirio Smith (08/27/2016 05:27:Imani Wadsworth RN) Currently Using Commun Resources: Yes (08/27/2016 05:27:Imani Wadsworth RN) Specify Current Resource Used: Food stamps (08/27/2016 05:27:Imani Wadsworth RN) Outside Agency/Advertising Sales Associate: Yes (08/27/2016 05:27:Imani Wadsworth RN) Car Seat for Discharge: Yes (08/27/2016 05:27:Imani Wadsworth RN) Adoption Requested: No (08/27/2016 05:27:Imani Wadsworth RN) Pt Contact w/infant Post : N/A (08/27/2016 05:27:Imani Wadsworth RN) LABS Blood Type: A Positive (08/27/2016 05:27:Imani Wadsworth RN) Antibody Screen: Negative (08/27/2016 05:27:Imani Wadsworth RN) Gonorrhea: Negative (08/27/2016 05:27:Imani Wadsworth RN) Chlamydia: Negative (08/27/2016 05:27:Imani Wadsworth RN) Rubella: Immune (08/27/2016 05:27:Imani Wadsworth RN) OB/PREVIOUS HISTORY Previous Procedures: NST (08/27/2016 05:27:Imani Wadsworth RN) Current Procedures: Ultrasound; NST (08/27/2016 05:27:Imani Wadsworth RN) History of Previous : No (08/27/2016 05:27:Imani Wadsworth RN) History of Gestational Diabetes: No (08/27/2016 05:27:Imani Wadsworth RN) History of PIH: No (08/27/2016 05:27:Imani Wadsworth RN) History of Incompetent Cervix: No (08/27/2016 05:27:Imani Wadsworth RN) History of Placenta Previa/Abrup: No (08/27/2016 05:27:Imani Wadsworth RN) History of Macrosomia: No (08/27/2016 05:27:Imani Wadsworth RN) History of IUGR: No (08/27/2016 05:27:Imani Wadsworth RN) History of Hemorrhage: No (08/27/2016 05:27:Imani Wadsworth RN) History of Loss/Stillborn: No (08/27/2016 05:27:Imani Wadsworth RN) History of : No (08/27/2016 05:27:Imani Wadsworth RN) History of D (Rh) Sensitization: No (08/27/2016 05:27:Imani Wadsworth RN) History Recurrent Loss/Stillborn: No (08/27/2016 05:27:Imani Wadsworth RN) History Depression/PP Depression: No (08/27/2016 05:27:Imani Wadsworth RN) History of Uterine Anomaly/NAVID: No (08/27/2016 05:27:Imani Wadsworth RN) History of Infertility: No (08/27/2016 05:27:Imani Wadsworth RN) History of ART Treatment: No (08/27/2016 05:27:Imani Wadsworth RN) History of NAVID: No (08/27/2016 05:27:Imani Wadsworth RN) Comments Obstetrical History: 04/10/2011- vaginal delivery 8lbs 08/14/2014- vaginal delivery 8 lbs 10 oz G3: current chris twins marginal insertion marginal insertion of twin A (08/27/2016 05:27:Jesica Vargas RN) MEDICAL HISTORY Med Hx Diabetes: No (08/27/2016 05:27:Imani Wadsworth RN) Med Hx Hypertension: No (08/27/2016 05:27:Imani Wadsworth RN) Med Hx Heart Disease: No (08/27/2016 05:27:Imani Wadsworth RN) Med Hx Autoimmune Disorder: No (08/27/2016 05:27:Imani Wadsworth RN) Med Hx Kidney Disease/UTI: No (08/27/2016 05:27:Imani Wadsworth RN) Med Hx Neurologic/Epilepsy: No (08/27/2016 05:27:Imani Wadsworth RN) Med Hx Psychiatric Disorders: No (08/27/2016 05:27:Imani Wadsworth RN) Med Hx Hepatitis/Liver Disease: No (08/27/2016 05:27:Imani Wadsworth RN) Med Hx Varicosities/Phlebitis: No (08/27/2016 05:27:Imani Wadsworth RN) Med Hx Thyroid Dysfunction: No (08/27/2016 05:27:Imani Wadsworth RN) Med Hx Trauma/Violence: No (08/27/2016 05:27:Imani Wadsworth RN) Med Hx Blood Transfusion: No (08/27/2016 05:27:Imani Wadsworth RN) Med Hx Pulmonary (Asthma,TB): No (08/27/2016 05:27:Imani Wadsworth RN) Med Hx Breast: No (08/27/2016 05:27:Imani Wadsworth RN) Med Hx CHEESE MAKER Surgery: No (08/27/2016 05:27:Imani Wadsworth RN) Med Hx Hospitalization/Surgery: No (08/27/2016 05:27:Imani Wadsworth RN) Med Hx Anesthetic Complications: No (08/27/2016 05:27:Imani Wadsworth RN) Med Hx Abnormal Pap Smear: No (08/27/2016 05:27:Imani Wadsworth RN) Other Medical Diseases: No (08/27/2016 05:27:Imani Wadsworth RN) Med Hx Significant Family Hx: No (08/27/2016 05:27:Imani Wadsworth RN) INFECTIOUS HISTORY Inf Hx Gonorrhea: No (08/27/2016 05:27:Imani Wadsworth RN) Inf Hx Chlamydia: No (08/27/2016 05:27:Imani Wadsworth RN) Inf Hx Syphilis: No (08/27/2016 05:27:Imani Wadsworth RN) Inf Hx HIV/AIDS: No (08/27/2016 05:27:Imani Wadsworth RN) Inf Hx Human Papilloma Virus: No (08/27/2016 05:27:Imani Wadsworth RN) Inf Hx Pt/Partner Genital Herpes: No (08/27/2016 05:27:Imani Wadsworth RN) Inf Hx Tuberculosis/Exposure: No (08/27/2016 05:27:Imani Wadsworth RN) Inf Hx Hepatitis B,C: No (08/27/2016 05:27:Imani Wadsworth RN) Inf Hx Rash or Viral Illness: No (08/27/2016 05:27:Imani Wadsworth RN) GENETIC HISTORY Gen Hx Age >=35 at [place]: No (08/27/2016 05:27:Imani Wadsworth RN) Gen Hx Thalassemia: No (08/27/2016 05:27:Imani Wadsworth RN) Gen Hx Congenital Heart Defect: No (08/27/2016 05:27:Imani Wadsworth RN) Gen Hx Neural Tube Defect: No (08/27/2016 05:27:Imani Wadsworth RN) Gen Hx Down's Syndrome: No (08/27/2016 05:27:Imani Wadsworth RN) Gen Hx Samuel-Sachs: No (08/27/2016 05:27:Imani Wadsworth RN) Gen Hx Francisco: No (08/27/2016 05:27:Imani Wadsworth RN) Gen Hx Familial Dysautonomia: No (08/27/2016 05:27:Imani Wadsworth RN) Gen Hx Sickle Cell Disease/Trait: No (08/27/2016 05:27:Imani Wadsworth RN) Gen Hx Hemophilia/Blood Disorder: No (08/27/2016 05:27:Imani Wadsworth RN) Gen Hx Muscular Dystrophy: No (08/27/2016 05:27:Imani Wadsworth RN) Gen Hx Cystic Fibrosis: No (08/27/2016 05:27:Imani Wadsworth RN) Gen Hx Huntingtons Chorea: No (08/27/2016 05:27:Imani Wadsworth RN) Gen Hx Mental Retardation/Autism: No (08/27/2016 05:27:Imani Wadsworth RN) Gen Hx Tested for Fragile X: No (08/27/2016 05:27:Imani Wadsworth RN) Gen Hx Other Inher/Chromosomal: No (08/27/2016 05:27:Imani Wadsworth RN) Gen Hx Maternal Metabolic DO: No (08/27/2016 05:27:Imani Wadsworth RN) Gen Hx Pt Father or FOB Defect: No (08/27/2016 05:27:Imani Wadsworth RN) Gen Hx Other Genetic History: No (08/27/2016 05:27:Imani Wadsworth RN) Gen Hx Drugs/Meds since LMP: No (08/27/2016 05:27:Imani Wadsworth RN)
--- NOTE | 2016-09-13 06:16 | L&D Current Admission ---
Current Admit Datetime Report Generated by CPN: 09/13/2016 06:00 ADMISSION INFORMATION Current Admit Date/Time: 08/27/2016 18:04 (08/27/2016 05:31:KHARI Black) Reason for Admission: Labor (08/27/2016 05:31:KHARI Black) Chief Complaint: Contractions (08/27/2016 05:31:Imani Wadsworth RN) EGA per Dates: 33.4 (08/27/2016 05:31:QS system process) Method of Arrival: Ambulatory (08/27/2016 05:31:KHARI Black) Admitted From: Antepartum Unit (08/27/2016 05:31:KHARI Black) Reason for Induction: Not Applicable (08/27/2016 05:31:KHARI Black) Records Available: Yes (08/27/2016 05:31:KHARI Black) General Admission Information: Reviewed (08/27/2016 05:31:KHARI Black) General Admission Reviewed By: Manuel LUCIA (08/27/2016 05:31:KHARI Black) BELONGINGS/ADVANCED DIRECTIVES Valuables/Personal Effects: None (08/27/2016 05:31:KHARI Black) Disposition of Belongings: Kept with Patient (08/27/2016 05:31:KHARI Black) Advance Direct for Healthcare: No, and Wants No Information (08/27/2016 05:31:KHARI Black) Durable Power of Medical Reimbursement Specialist: No (08/27/2016 05:31:KHARI Black) Living Will: No (08/27/2016 05:31:KHARI Black) Organ Donor: Undecided (08/27/2016 05:31:KHARI Black) Pt Rights Information Given: Yes (08/27/2016 05:31:KHARI Black) Pt Understands Pt Rights: Yes (08/27/2016 05:31:KHARI Black) LEARNING ASSESSMENT Knowledge Level: Understands L_D Process; Understands Care Activities (08/27/2016 05:31:KHARI Black) Barriers to Learning: None (08/27/2016 05:31:KHARI Black) Learning Readiness: Motivated (08/27/2016 05:31:KHARI Black) Learns Best By: 1 to 1 Instruction; Reading; Videos; Group Discussion; Demonstration (08/27/2016 05:31:KHARI Black) Learning Needs: Labor and Delivery Process; Pain Management; Symptoms to Report; Treatment Plan; Medication; Diagnosis; Nutrition; Equipment; Infant Care; Community Resources (08/27/2016 05:31:KHARI Black) DOMESTIC VIOLANCE SCREENING Dom Viol Threatened/Hurt: No (08/27/2016 05:31:KHARI Black) Hx of Abuse/Neglect past 2yrs: No (08/27/2016 05:31:KHARI Black) Feel Unsafe Going Home: No (08/27/2016 05:31:KHARI Black) Addt'l Observ Indicating Abuse: No (08/27/2016 05:31:KHARI Black) Reason Unable to Complete Screen: N/A, Screen Completed (08/27/2016 05:31:KHARI Black) Considered Personal Harm/Suicide: No (08/27/2016 05:31:KHARI Black) NUTRITIONAL/FUNCTIONAL SCREENING Problem with Appetite >5 Days: No (08/27/2016 05:31:KHARI Black) Chew/Swallow Difficulties: No (08/27/2016 05:31:KHARI Black) Inappropriate Wt Gain/Loss: No (08/27/2016 05:31:KHARI Black) Presence Skin Breakdown/Ulcer: No (08/27/2016 05:31:KHARI Black) Special Diet: No (08/27/2016 05:31:KHARI Black) Pt Requests Palliative Nurse Visit: No (08/27/2016 05:31:KHARI Black) Hx of Any of the Following?: N/A (08/27/2016 05:31:KHARI Black) New Diagnosis of: N/A (08/27/2016 05:31:KHARI Black) Requires Assist w/Ambulation: Hillary (08/27/2016 05:31:KHARI Black) Uses Assist Device to Ambulate: No (08/27/2016 05:31:KHARI Black) Pt Requires Help w/ADL's: Hillary (08/27/2016 05:31:KHARI Black)
== END 2016-08-28 09:54 | disposition home or self-care (01) ==
LOC: LC 05:23 → LR 15:48
PROVIDERS: ADMIT Student in an Organized Health Care Education/Training Program; ATTEND Student in an Organized Health Care Education/Training Program
PROC: 4A1HXCZ Monitoring of Products of Conception, Cardiac Rate, External Approach (ICD-10-PCS; principal; 2016-08-27)
DX: O47.03 False labor before 37 completed weeks of gestation, third trimester (principal); O30.043 Twin pregnancy, dichorionic/diamniotic, third trimester; O32.1XX2 Maternal care for breech presentation, fetus 2; O99.283 Endocrine, nutritional and metabolic diseases complicating pregnancy, third trimester; E86.0 Dehydration; Z3A.33 33 weeks gestation of pregnancy
CPT/HCPCS: 59025; 96372; 81001; 80307; G0378 ×2; G0379; J3490 ×3; J2540; J0702 ×2

== ENCOUNTER 2016-09-13 14:29 | Outpatient (CLI) | payer MEDICAID ==
--- NOTE | 2016-09-13 15:38 | Non Stress Test Report ---
Non Stress Test Datetime Report Generated by CPN: 09/13/2016 15:38 DEMOGRAPHIC EGA NST: 36.0 EGA NST: 33.5 INDICATION Indication for Study: Other Indication for Study: Ordered by Provider; Other Indication for Study (NST) Other: twins Indication for Study (NST) Other: Labor Check VITAL SIGNS Temperature - NST: 97.9 Pulse - NST: 89 RESP - NST: 18 NBPSYS NST: 145 MONITORING Monitor Explained: Monitor Explained; Test Explained; Patient Verbalized Understanding Monitor Explained: Monitor Explained; Test Explained; Patient Verbalized Understanding Time on Monitor: 09/13/2016 14:25 Time on Monitor: 08/28/2016 07:53 Time off Monitor: 09/13/2016 15:15 Time off Monitor: 08/28/2016 09:34 NST Duration: 50 NST Duration: 101 NST INTERVENTIONS NST Interventions: PO Hydration; Reposition Patient NST Interventions: PO Hydration; IV Fluids; Reposition Patient Physician Notified NST: D Bellavance RNC Physician Notified NST: Dr. Chaney BABY A: [id number] BABY A Movement : Present Movement : Present Contraction Frequency : x2 Contraction Frequency : occasional FHR Baseline : 135 FHR Baseline : 130 Accelerations : 15X15 Accelerations : 15X15 Decelerations : None Decelerations : None Variability : Moderate 6-25bpm Variability : Moderate 6-25bpm NST Review: Meets Criteria for Reactive NST NST Review: Meets Criteria for Reactive NST NST Review and Verified By : Chip POE RN NST Review and Verified By : Nathan Jameson RN NST Results: Reactive NST Results: Reactive BABY B Movement: Present Movement: Present FHR Baseline: 135 FHR Baseline: 135 Accelerations: 15X15 Accelerations: 15X15 Decelerations: None Decelerations: None Variability: Moderate 6-25bpm Variability: Moderate 6-25bpm NST Review: Meets Criteria for Reactive NST NST Review: Meets Criteria for Reactive NST NST Reviewed And Verified By: BAUDILIO HOLLANDT Reviewed And Verified By: B Baidy RN NST Results: Reactive NST Results: Reactive NST REPORT Report Trigger: Send Report
== END 2016-09-13 15:40 | disposition home or self-care (01) ==
LOC: LC 14:29
PROVIDERS: ATTEND Obstetrics & Gynecology
PROC: 4A1HXCZ Monitoring of Products of Conception, Cardiac Rate, External Approach (ICD-10-PCS; principal; 2016-09-13)
DX: O30.003 Twin pregnancy, unspecified number of placenta and unspecified number of amniotic sacs, third trimester (principal); Z3A.36 36 weeks gestation of pregnancy
CPT/HCPCS: 59025

== ENCOUNTER 2016-09-19 17:21 | Inpatient (IN) | payer MEDICAID ==
[2016-09-19] MEDS ORDERED: RINGERS SOLUTION,LACTATED 1,000 ML IV PRN (17:43)
[2016-09-19] MEDS ORDERED: FENTANYL CITRATE INJ/PF 100 MCG/2 ML AMPUL ONE (17:47)
--- NOTE | 2016-09-19 18:00 | L&D Flow Sheet ---
LD Flowsheet Datetime Report Generated by CPN: 09/19/2016 18:00 Datetime: 09/19/2016 17:55 Communication Comments: Dr. Neilsen at bedside (Nguyen Nikolai, RN) Datetime: 09/19/2016 17:52 Analgesics/Sedatives: Fentanyl (mcg) @ 100 (Nguyen Nikolai, RN)
[2016-09-19] MEDS ORDERED: OXYTOCIN/NORMAL SALINE 20 UNIT/1,000 ML RTUINJ ONE (18:11)
[2016-09-19] MEDS ORDERED: OXYTOCIN 10 UNIT/ML VIAL ONE (18:17)
[2016-09-19] MEDS ORDERED: FENTANYL CITRATE INJ/PF 250 MCG/5 ML AMPULE ONE (18:17)
[2016-09-19] MEDS ORDERED: KETOROLAC TROMETHAMINE INJ/PF 30 MG/1 ML SDV ONE (18:17)
[2016-09-19] MEDS ORDERED: EPHEDRINE SULFATE INJ 50 MG/1 ML AMPULE ONE (18:17)
[2016-09-19 18:18] LABS: APPEARANCE,URINE CLEAR; BILIRUBIN,URINE NEGATIVE (NEGATIVE); GLUCOSE, URINE NEGATIVE (NEGATIVE); KETONES,URINE NEGATIVE (NEGATIVE); LEUKOCYTE ESTERASE,URINE NEGATIVE (NEGATIVE); NITRITE,URINE NEGATIVE (NEGATIVE); PROTEIN,URINE NEGATIVE (NEGATIVE); URINE SPECIFIC GRAVITY 1.004; UROBILINOGEN,URINE NEGATIVE mg/dL (<2.0)
[2016-09-19] MEDS ORDERED: MIDAZOLAM 2 MG/2 ML INJ ONE (18:18)
[2016-09-19] MEDS ORDERED: ONDANSETRON HCL INJ/PF 4 MG/2 ML SDV ONE (18:18)
[2016-09-19 18:19] LABS: ABSOLUTE EOSINOPHILS # (AUTO) 0.1 10^3/uL (0.0-0.6); ABSOLUTE LYMPHOCYTES (AUTO) 3.1 10^3/uL (0.5-4.7); ABSOLUTE MONOCYTES (AUTO) 0.9 10^3/uL (0.1-1.4); ABSOLUTE NEUT (AUTO) 5.7 10^3/uL (1.7-8.2); BASOPHILS % (AUTO) 0.3 % (0-2); EOSINOPHILS % (AUTO) 1.1 % (0-6); HEMATOCRIT 39.7 % (36.0-47.0); HEMOGLOBIN 13.5 g/dL (12.0-15.5); HGB HCT DIFFERENCE 0.8; LYMPHOCYTES % (AUTO) 31.1 % (13-45); MEAN CORPUSCULAR HEMOGLOBIN 31.2 pg (27.0-33.4); MEAN CORPUSCULAR HGB CONC 33.9 g/dL (32.0-36.0); MEAN CORPUSCULAR VOLUME 92 fl (80-97); MONOCYTES % (AUTO) 9.1 % (3-13); RED BLOOD COUNT 4.31 10^6/uL (3.72-5.28); RED CELL DISTRIBUTION WIDTH 13.4 % (11.5-14.0); SEGMENTED NEUTROPHILS % (AUTO) 58.4 % (42-78); WHITE BLOOD COUNT 9.8 10^3/uL (4.0-10.5)
[2016-09-19 18:37] LABS: URINE BARBITURATES SCREEN NEGATIVE; URINE METHADONE SCREEN NEGATIVE; URINE OPIATES LOW NEGATIVE; URINE PHENCYCLIDINE SCREEN NEGATIVE
[2016-09-19] MEDS ORDERED: MISOPROSTOL 0.2 MG TABLET ONE (18:40)
[2016-09-19] MEDS ORDERED: LIDOCAINE 1% INJ-PF (10 MG/ML) 30 ML SDV ONE (18:42)
[2016-09-19] MEDS ORDERED: IBUPROFEN 800 MG TABLET ONE (19:40)
--- NOTE | 2016-09-19 20:01 | L&D Flow Sheet ---
LD Flowsheet Datetime Report Generated by CPN: 09/19/2016 20:00 Datetime: 09/19/2016 19:42 NBP Sys/Monalisa/Mean (mmHg): 133 (QS system process) : 80 (QS system process) : 98 (QS system process) Pulse: 73 (QS system process) Datetime: 09/19/2016 18:55 Stage of : Recovery (Cynthia Pepe, RN) Stage of : Recovery (Kathy Lucinao, RN) Datetime: 09/19/2016 18:36 Stage of : Labor (Kathy Luciano, RN) Monitor Mode: External US (Kathy Luciano, RN) Decelerations: Prolonged (Kathy Luciano, RN) Comments: Terminal decel ending in viable delivery of baby boy B. See delivery summary. (Kathy Luciano, RN) Datetime: 09/19/2016 18:30 Monitor Mode: External; Palpation (Kathy Luciano, RN) Frequency (min): 2-3 (Kathy Luciano, RN) Quality: Moderate to Strong (Kathy Luciano, RN) Duration (sec): 60-80 (Kathy Luciano, RN) Resting Tone (Palpate): Relaxed (Kathy Luciano, RN) Monitor Mode: External US (Kathy Luciano, RN) FHR Baseline Rate : 145 (Kathy Luciano, RN) Variability: Moderate 6-25 bpm (Kathy Luciano, RN) Accelerations: 15X15 (Kathy Luciano, RN) Decelerations: Variable (Kathy Luciano, RN) Datetime: 09/19/2016 18:27 Monitor Mode: External US (Kathy Luciano, RN) FHR Baseline Rate : 135 (Kathy Luciano, RN) Variability: Moderate 6-25 bpm (Kathy Luciano, RN) Decelerations: Variable (Kathy Luciano, RN) Comments: Del of viable baby boy (Kathy Luciano, RN) Datetime: 09/19/2016 18:20 Dilatation (cm): 10.0 (Kathy Luciano, RN) Effacement (%): 100 (Kathy Luciano, RN) Station: 2 (Kathy Luciano, RN) Exam by: Dr Lezama (Kathy Luciano, RN) Datetime: 09/19/2016 18:13 Communication Comments: Patient accompanied to OR by Dr. Lezama and Dr. Chaney. Monitor turned off. (Nguyen Menchaca RN) Datetime: 09/19/2016 18:06 Dilatation (cm): 9.0 (Kathy Wolf RN) Effacement (%): 100 (Kathy Wolf RN) Station: 1 (Kathy Wolf RN) Exam by: Dr Lezama (Kathy Wolf RN) Datetime: 09/19/2016 18:05 Pain Scale: 5 (Nguyen Menchaca RN) Pain Presence: Intermittent (Nguyen Menchaca RN) Pain Type: Contraction (Nguyen Menchaca RN) Pain Goal: 3 (Nguyen Menchaca RN) Membrane Status: Ruptured (Nguyen Menchaca RN) Membranes Ruptured Date/Time: 09/19/2016 17:00 (Nguyen Menchaca RN) Membranes Rupture Method: Spontaneous (Nguyen Nikolai, RN) Amniotic Fluid Color: Clear (Nguyen Nikolai, RN) Amniotic Fluid Amount: Moderate (Nguyen Nikolai, RN) Amniotic Fluid Odor: Normal (Nguyen Nikolai, RN) Vaginal Bleeding: None (Nguyen Nikolai, RN) Level of Consciousness: Fully Conscious (Nguyen Nikolai, RN) LaborFlag: Labor (QS system process) Datetime: 09/19/2016 18:00 Monitor Mode: External; Palpation (Nguyen Nikolai, RN) Frequency (min): 2-3 (Nguyen Nikolai, RN) Quality: Moderate to Strong (Nguyen Nikolai, RN) Duration (sec): 60-80 (Nguyen Nikolai, RN) Resting Tone (Palpate): Relaxed (Nguyen Nikolai, RN) Monitor Mode: External US (Nguyen Nikolai, RN) FHR Baseline Rate : 140 (Nguyen Nikolai, RN) Variability: Moderate 6-25 bpm (Nguyen Nikolai, RN) Accelerations: 15X15 (Nguyen Nikolai, RN) Decelerations: None (Nguyen Nikolai, RN) FHR Baseline Rate : 140 (Nguyen Nikolai, RN) Variability: Moderate 6-25 bpm (Nguyen Nikolai, RN) Accelerations: 15X15 (Nguyen Nikolai, RN) Decelerations: None (Nguyen Nikolai, RN)
--- NOTE | 2016-09-19 21:38 | Admission Physical ---
Datetime Report Generated by CPN: 09/19/2016 21:38 CURRENT ADMISSION Chief Complaint: Uterine Contractions Indication for Induction: Not Applicable Admit Impression- Other: Di-Di Twins Vertex/Breech Admit Plan: Admit to Unit; Initiate Labor Protocol ALLERGIES Medication Allergies: No Medication Allergies: No Known Allergies (08/27/2016) Latex: No Latex Allergies Food Allergies: NA Environmental Allergies: NA OBSTETRICAL HISTORY EDC: 10/11/2016 00:00 : 3 Para: 2 Term: 2 : 0 SAB: 0 IAB: 0 Ectopic: 0 Livin Cesareans: 0 VBACs: 0 Multiple Births: 1 Gestational Diabetes: No Rh Sensitization: No Incompetent Cervix: No NAVID: No Infertility: No ART Treatment: No Uterine Anomaly: No IUGR: No Hx Previous C/S: No Macrosomia: No Hx Loss/Stillborn: No PIH: No Hx : No Placenta Previa/Abruption: No Depression/PP Depression: No PTL/PROM: No Post Hemorrhage: No Current Procedures: Ultrasound; NST Obstetrical History Comments: 04/10/2011- vaginal delivery 8lbs 08/14/2014- vaginal delivery 8 lbs 10 oz G3: current chris twins marginal insertion marginal insertion of twin A SEE RECORDS Alcohol: No Marijuana : No Cocaine: No Other Illicit Drugs: No Cigarettes: Former Smoker. [id number] MEDICAL HISTORY Diabetes: No Blood Transfusion: No Pulmonary Disease (Asthma, TB): No Breast Disease: No Hypertension: No [employer] Surgery: No Heart Disease: No Hosp/Surgery: No Autoimmune Disorder: No Anesthetic Complications: No Kidney Disease: No Abnormal Pap Smear: No Neuro/Epilepsy: No Psychiatric Disorders: No Other Medical Diseases: No Hepatitis/Liver Disease: No Significant Family History: No Varicosities/Phlebitis: No Trauma/Violence : No Thyroid Dysfunction: No INFECTIOUS HISTORY Gonorrhea: No Genital Herpes: No Chlamydia: No Tuberculosis: No Syphilis: No Hepatitis: No HIV/AIDS Exposure: No Rash or Viral Illness: No HPV: No PHYSICAL EXAM General: Normal HEENT: Normal Neurologic: Normal Thyroid: Deferred Heart: Normal Lungs: Normal Breast: Deferred Back: Normal Abdomen: Normal Genitourinary Exam: Normal Extremities: Normal DTRs: Normal Pelvic Type: Adequate Physical Exam Comments: pelvis proven to 8#10oz Vital Signs: Reviewed; Within Normal Limits VAGINAL EXAM Dilatation: 8 Effacement: 100 Station: 1 MEMBRANES Membranes: Ruptured Amniotic Fluid Color: Clear FETUS A EGA: 36.6 Monitoring: External US FHR- Baseline: 125 Variability: Moderate 6-25bpm Accelerations: 15X15 Decelerations: None FHR Category: Category I FHR Comments: Cat 1 Fetus B Presentation: Vertex Admit Comment: Pt desires attempted vaginal of her twins FETUS B Monitoring: External US Variability: Moderate 6-25bpm Accelerations: 15X15 Decelerations: None FHR Category: Category I Presentation: Breech PLANS FOR LABOR AND DELIVERY Labor and Delivery: None Pain Management: Epidural Feeding Preference: Breast Benefit of Breast Feed Discussed: Yes Circumcision: Yes INFORMED CONSENT Informed Consent Obtained: Vaginal Delivery; Section Delivery; Vacuum/Forceps Assist; Risks, Benefits and Alternatives Discussed Signature: with User ID: [email or web address]
[2016-09-20] MEDS ORDERED: MEASLES,MUMPS&RUBELLA VACC/PF 0.5 ML VIAL SUBCUT PRN (01:09)
[2016-09-20] MEDS ORDERED: DIPH/PERTUSS(ACELL)/TETANUS VAC/PF 0.5 ML SYR (>=10YO) IM PRN (01:09)
[2016-09-20] MEDS ORDERED: ACETAMINOPHEN WITH CODEINE #3 TABLET PO PRN ×2 (01:09)
[2016-09-20] MEDS ORDERED: DIBUCAINE 1% OINTMENT 28 GM TP PRN (01:09)
[2016-09-20] MEDS ORDERED: ZOLPIDEM TARTRATE 5 MG TABLET PO PRN (01:09)
[2016-09-20] MEDS ORDERED: BENZOCAINE/MENTHOL AEROSOL SPRAY 56 ML TOP PRN (01:09)
[2016-09-20] MEDS ORDERED: OXYTOCIN/NORMAL SALINE 20 UNIT/1,000 ML RTUINJ IV PRN (01:09)
[2016-09-20] MEDS: IBUPROFEN 800 MG TABLET PO SCH ×3 (05:18→21:07)
--- NOTE | 2016-09-20 07:00 | L&D Flow Sheet ---
LD Flowsheet Datetime Report Generated by CPN: 09/20/2016 07:00 Datetime: 09/19/2016 20:58 NBP Sys/Monalisa/Mean (mmHg): 127 (QS system process) : 81 (QS system process) : 96 (QS system process) Pulse: 78 (QS system process) Respirations: 16 (Samantha Theodore RN) Temperature (F): 98.1 (Samantha Theodore RN) Temperature (C): 36.7 (QS system process) Temperature Route: Oral (Samantha Arben, RN) Datetime: 09/19/2016 20:27 NBP Sys/Monalisa/Mean (mmHg): 114 (QS system process) : 75 (QS system process) : 85 (QS system process) Pulse: 70 (QS system process) Datetime: 09/19/2016 20:11 NBP Sys/Monalisa/Mean (mmHg): 133 (QS system process) : 64 (QS system process) : 92 (QS system process) Pulse: 75 (QS system process) Datetime: 09/19/2016 20:00 NBP Sys/Monalisa/Mean (mmHg): 140 (QS system process) : 79 (QS system process) : 102 (QS system process) Pulse: 69 (QS system process) Datetime: 09/19/2016 19:42 NBP Sys/Monalisa/Mean (mmHg): 133 (QS system process) : 80 (QS system process) : 98 (QS system process) Pulse: 73 (QS system process) Respirations: 15 (Samantha Theodore RN)
[2016-09-20] MEDS: DOCUSATE SODIUM 100 MG CAPSULE PO SCH ×2 (09:36→17:19)
[2016-09-20] MEDS: SENNOSIDES/DOCUSATE 8.6-50 MG 1 EACH TABLET PO SCH (09:36)
[2016-09-20] MEDS: FERROUS SULFATE 325 MG TABLET PO SCH ×2 (09:37→17:19)
[2016-09-20] MEDS: PRENATAL VITAMIN W-O CA NO5/FE FUMARATE/FA CAPSULE PO SCH (09:37)
--- NOTE | 2016-09-20 11:54 | PDOC PROGRESS REPORT ---
Subjective-OB Subjective: Post Delivery Day:1 31 year old L4. Voiding and ambulating without difficulty. Denies any needs at this time Physical Exam (OB) Vital Signs: Temp Pulse Resp BP Pulse Ox 97.7 F 78 17 125/70 98 09/20/16 08:22 09/20/16 08:22 09/20/16 08:22 09/20/16 08:22 09/20/16 08:22 - General General Appearance: Appears well In distress: None - Episiotomy/Laceration Site Condition: Well Approximated, Edematous - Lochia Lochia Amount: Small 10-25 ml Lochia Color: Rubra/Red - Abdomen Description: Soft, Round Hernia Present: No Fundal Description: Firm, Midline Fundal Height: u/u - u/2 - Respiratory Respiratory Status: No respiratory distress - Extremities Upper extremity: Normal inspection Lower extremities: Normal inspection - Neurological Cognition: Normal Orientation: AAOx4 - Psychological Associated symptoms: Normal affect, Normal mood Objective-Diagnostic Laboratory: 09/19/16 18:06 09/19/16 09/19/16 09/19/16 17:30 18:06 18:06 WBC 9.8 RBC 4.31 Hgb 13.5 Hct 39.7 MCV 92 MCH 31.2 MCHC 33.9 RDW 13.4 Plt Count 209 Seg Neutrophils % 58.4 Lymphocytes % 31.1 Monocytes % 9.1 Eosinophils % 1.1 Basophils % 0.3 Absolute Neutrophils 5.7 Absolute Lymphocytes 3.1 Absolute Monocytes 0.9 Absolute Eosinophils 0.1 Absolute Basophils 0.0 Urine Color STRAW Urine Appearance CLEAR Urine pH 6.0 Ur Specific [facility] 1.004 Urine Protein NEGATIVE Urine Glucose (UA) NEGATIVE Urine Ketones NEGATIVE Urine Blood SMALL H Urine Nitrite NEGATIVE Ur Leukocyte Esterase NEGATIVE Urine WBC (Auto) 1 Urine RBC (Auto) 1 Blood Type A POSITIVE Antibody Screen NEGATIVE Assessment and Plan(PN) - Assessment and Plan (1) Vaginal delivery Is this a current diagnosis for this admission?: YesPlan: continue stay (2) Twin Is this a current diagnosis for this admission?: YesPlan: continue stay (3) delivery Is this a current diagnosis for this admission?: YesPlan: continue stay - Time Spent with Patient Time with patient: 15-25 minutes Medications reviewed and adjusted accordingly: Yes - Disposition Anticipated Discharge: Home Within: within 24 hours
[2016-09-20] MEDS ORDERED: ONDANSETRON 4 MG TAB.RAPDIS ONE (12:26)
[2016-09-20] MEDS ORDERED: ONDANSETRON 4 MG TAB.RAPDIS PO PRN (12:32)
[2016-09-20 15:08] LABS: HEMOGLOBIN 12.4 g/dL (12.0-15.5); HGB HCT DIFFERENCE 1.2; MEAN CORPUSCULAR HEMOGLOBIN 31.5 pg (27.0-33.4); MEAN CORPUSCULAR HGB CONC 34.3 g/dL (32.0-36.0); MEAN CORPUSCULAR VOLUME 92 fl (80-97); RED BLOOD COUNT 3.92 10^6/uL (3.72-5.28); RED CELL DISTRIBUTION WIDTH 13.3 % (11.5-14.0); WHITE BLOOD COUNT 12.7 10^3/uL (4.0-10.5)
--- NOTE | 2016-09-20 18:01 | L&D General Admission ---
General Admit Datetime Report Generated by CPN: 09/20/2016 18:00 INFORMATION Patient Age: 31 (08/02/2016 13:04:QS system process) EDC: 10/11/2016 00:00 (08/27/2016 05:27:Imani Wadsworth RN) : 3 (08/27/2016 05:27:Imani Wadsworth RN) Para: 2 (08/28/2016 09:54:Nguyen Menchaca RN) Term: 2 (08/27/2016 05:27:KHARI Black) : 0 (08/27/2016 05:27:KHARI Black) Spontaneous Abortions: 0 (08/27/2016 05:27:KHARI Black) Induced Abortions: 0 (08/27/2016 05:27:KHARI Black) Livin (08/27/2016 05:27:Imani Wadsworth RN) Cesareans: 0 (08/27/2016 05:27:KHARI Black) VBACs: 0 (08/27/2016 05:27:KHARI Black) Ectopic: 0 (08/27/2016 05:27:KHARI Black) Multiple Births: 1 (08/27/2016 05:27:KHARI Black) Baby, Number in Womb: 2 (08/28/2016 09:54:Nguyen Menchaca RN) CARE Primary Care Rep: [facility] (08/27/2016 05:27:Imani Wadsworth RN) Month of 1st Visit: february (08/27/2016 05:27:KHARI Black) Adequate Care: Yes (08/27/2016 05:27:Imani Wadsworth RN) Prepregnancy Weight (lb): 168 (08/27/2016 05:27:KHARI Black) Prepregnancy Weight (kg): 76.4 (08/27/2016 05:27:QS system process) Height (in): 66 (09/20/2016 15:19:QS system process) ALLERGIES Medication Allergy: No (08/27/2016 05:27:Imani Wadsworth RN) Medication Allergies: No Known Allergies (08/27/2016) (08/27/2016 05:35:QS system process) Latex Allergy: No Latex Allergies (08/27/2016 05:27:Imani Wadsworth RN) Food Allergies: NA (08/27/2016 05:27:Imani Wadsworth RN) Environmental Allergies: NA (08/27/2016 05:27:Crystal BAUDILIO Wadsworth) COMMUNICATION Primary Language: Bahamian (08/27/2016 05:27:Imani Wadsworth RN) Medical Tx Preferred Language: Bahamian (08/27/2016 05:27:Claribel Barrientos RN) Communication Barrier(s): None (08/27/2016 05:27:Imani Wadsworth RN) DEMOGRAPHICS Address: [address] [place] [id number] (08/02/2016 13:04:QS system process) Zipcode: [id number] (08/02/2016 13:04:QS system process) Home (08/02/2016 13:04:QS system process) SSN: [id number] (08/02/2016 13:04:QS system process) Next of Kin Name: CYNTHIA SMITH (08/02/2016 13:04:QS system process) Next of Kin (09/13/2016 14:29:QS system process) Next of Kin Relationship: SPO (08/02/2016 13:04:QS system process) Date of : 1985 (08/02/2016 13:04:QS system process) Marital Status: (08/02/2016 13:04:QS system process) Sex: Female (08/02/2016 13:04:QS system process) Race: (08/02/2016 13:04:QS system process) Ethnicity: Non- or (08/02/2016 13:04:QS system process) Judaism: Spiritism (08/02/2016 13:04:QS system process) DRUG AND ALCOHOL USE Alcohol: No (08/27/2016 05:27:Imani Wadsworth RN) Cigarettes: Former Smoker. [id number] (08/27/2016 05:27:Imani Wadsworth RN) Marijuana: No (08/27/2016 05:27:Imani Wadsworth RN) Cocaine: No (08/27/2016 05:27:Imani Wadsworth RN) Other Illicit Drugs: No (08/27/2016 05:27:Imani Wadsworth RN) VACCINE HISTORY Influenza Vaccine: No (08/27/2016 05:27:Imani Wadsworth RN) Pneumococcal Vaccine: No (08/27/2016 05:27:Imani Wadsworth RN) Tetanus Vaccine: No (08/27/2016 05:27:Imani Wadsworth RN) Tdap Vaccine: Yes (08/27/2016 05:27:Imani Wadsworth RN) Tdap Date: 07/21/2016 (08/27/2016 05:27:Imani Wadsworth RN) Hepatitis B Vaccine: No (08/27/2016 05:27:Imani Wadsworth RN) Paste Up Artist Apprentice: [facility] (08/27/2016 05:27:Nguyen Menchaca RN) Feeding Preference: Breast (08/27/2016 05:27:Imani Wadsworth RN) Benefit of Breast Feed Discussed: Yes (08/27/2016 05:27:Imani Wadsworth RN) Circumcision: Yes (08/27/2016 05:27:Imani Wadsworth RN) Classes Attended: No (08/27/2016 05:27:Imani Wadsworth RN) Tubal Ligation: No (08/27/2016 05:27:Imani Wadsworth RN) Tubal Authorization Signed: N/A (08/27/2016 05:27:Imani Wadsworth RN) Consent: N/A (08/27/2016 05:27:Imani Wadsworth RN) Consent Signed: N/A (08/27/2016 05:27:Imani Wadsworth RN) Pain Management Plans: Epidural (08/27/2016 05:27:Imani Wadsworth RN) Plans for Labor and Delivery: None (08/27/2016 05:27:Imani Wadsworth RN) Support Person: Porfirio Smith (08/27/2016 05:27:Imani Wadsworth RN) Support Person Relationship: (08/27/2016 05:27:Imani Wadsworth RN) Cultural/Spritual Practice: Yes (08/27/2016 05:27:Imani Wadsworth RN) Spir/Cult Dietary Needs: Yes (08/27/2016 05:27:Imani Wadsworth RN) LIVING SITUATION/DISCHARGE PLAN Living Arrangements: House (08/27/2016 05:27:Imani Wadsworth RN) Adequate Access to:: Electric; Heat; Refrigeration; Plumbing/Running water; Phone; Transportation (08/27/2016 05:27:Imani Wadsworth RN) WIC Program: Yes (08/27/2016 05:27:Imani Wadsworth RN) Discharge Jockey Agent Person: Porfirio Smith (08/27/2016 05:27:Imani Wadsworth RN) Person to Help after Discharge: Porfirio Smith (08/27/2016 05:27:Imani Wadsworth RN) Currently Using Commun Resources: Yes (08/27/2016 05:27:Imani Wadsworth RN) Specify Current Resource Used: Food stamps (08/27/2016 05:27:Imani Wadsworth RN) Outside Agency/Supervisor [employer]: Yes (08/27/2016 05:27:Imani Wadsworth RN) Car Seat for Discharge: Yes (08/27/2016 05:27:Imani Wadsworth RN) Adoption Requested: No (08/27/2016 05:27:Imani Wadsworth RN) Pt Contact w/ Post : N/A (08/27/2016 05:27:Imani Wadsworth RN) LABS Blood Type: A Positive (08/27/2016 05:27:Imani Wadsworth RN) Antibody Screen: Negative (08/27/2016 05:27:Imani Wadsworth RN) Hemoglobin: 12.4 (09/20/2016 14:31:QS system process) Hematocrit: 36.0 (09/20/2016 14:31:QS system process) MCV: 92 (09/20/2016 14:31:QS system process) Group Beta Strep: Negative (08/27/2016 05:27:Samantha Theodore RN) Gonorrhea: Negative (08/27/2016 05:27:Imani Wadsworth RN) Chlamydia: Negative (08/27/2016 05:27:Imani Wadsworth RN) Rubella: Immune (08/27/2016 05:27:Imani Wadsworth RN) OB/PREVIOUS HISTORY Previous Procedures: NST (08/27/2016 05:27:Imani Wadsworth RN) Current Procedures: Ultrasound; NST (08/27/2016 05:27:Imani Wadsworth RN) History of Previous : No (08/27/2016 05:27:Imani Wadsworth RN) History of Gestational Diabetes: No (08/27/2016 05:27:Imani Wadsworth RN) History of PIH: No (08/27/2016 05:27:Imani Wadsworth RN) History of Incompetent Cervix: No (08/27/2016 05:27:Imani Wadsworth RN) History of Placenta Previa/Abrup: No (08/27/2016 05:27:Imani Wadsworth RN) History of Macrosomia: No (08/27/2016 05:27:Imani Wadsworth RN) History of IUGR: No (08/27/2016 05:27:Imani Wadsworth RN) History of Hemorrhage: No (08/27/2016 05:27:Imani Wadsworth RN) History of Loss/Stillborn: No (08/27/2016 05:27:Imani Wadsworth RN) History of : No (08/27/2016 05:27:Imani Wadsworth RN) History of D (Rh) Sensitization: No (08/27/2016 05:27:Imani Wadsworth RN) History Recurrent Loss/Stillborn: No (08/27/2016 05:27:Imani Wadsworth RN) History Depression/PP Depression: No (08/27/2016 05:27:Imani Wadsworth RN) History of Uterine Anomaly/NAVID: No (08/27/2016 05:27:Imani Wadsworth RN) History of Infertility: No (08/27/2016 05:27:Imani Wadsworth RN) History of ART Treatment: No (08/27/2016 05:27:Imani Wadsworth RN) History of NAVID: No (08/27/2016 05:27:Imani Wadsworth RN) Comments Obstetrical History: 04/10/2011- vaginal delivery 8lbs 08/14/2014- vaginal delivery 8 lbs 10 oz G3: current chris twins marginal insertion marginal insertion of twin A (08/27/2016 05:27:Jesica Vargas RN) MEDICAL HISTORY Med Hx Diabetes: No (08/27/2016 05:27:Imani Wadsworth RN) Med Hx Hypertension: No (08/27/2016 05:27:Imani Wadsworth RN) Med Hx Heart Disease: No (08/27/2016 05:27:Imani Wadsworth RN) Med Hx Autoimmune Disorder: No (08/27/2016 05:27:Imani Wadsworth RN) Med Hx Kidney Disease/UTI: No (08/27/2016 05:27:Imani Wadsworth RN) Med Hx Neurologic/Epilepsy: No (08/27/2016 05:27:Imani Wadsworth RN) Med Hx Psychiatric Disorders: No (08/27/2016 05:27:Imani Wadsworth RN) Med Hx Hepatitis/Liver Disease: No (08/27/2016 05:27:Imani Wadsworth RN) Med Hx Varicosities/Phlebitis: No (08/27/2016 05:27:Imani Wadsworth RN) Med Hx Thyroid Dysfunction: No (08/27/2016 05:27:Imani Wadsworth RN) Med Hx Trauma/Violence: No (08/27/2016 05:27:Imani Wadsworth RN) Med Hx Blood Transfusion: No (08/27/2016 05:27:Imani Wadsworth RN) Med Hx Pulmonary (Asthma,TB): No (08/27/2016 05:27:Imani Wadsworth RN) Med Hx Breast: No (08/27/2016 05:27:Imani Wadsworth RN) Med Hx INSTALLER Surgery: No (08/27/2016 05:27:Imani Wadsworth RN) Med Hx Hospitalization/Surgery: No (08/27/2016 05:27:Imani Wadsworth RN) Med Hx Anesthetic Complications: No (08/27/2016 05:27:Imani Wadsworth RN) Med Hx Abnormal Pap Smear: No (08/27/2016 05:27:Imani Wadsworth RN) Other Medical Diseases: No (08/27/2016 05:27:Imani Wadsworth RN) Med Hx Significant Family Hx: No (08/27/2016 05:27:Imani Wadsworth RN) INFECTIOUS HISTORY Inf Hx Gonorrhea: No (08/27/2016 05:27:Imani Wadsworth RN) Inf Hx Chlamydia: No (08/27/2016 05:27:Imani Wadsworth RN) Inf Hx Syphilis: No (08/27/2016 05:27:Imani Wadsworth RN) Inf Hx HIV/AIDS: No (08/27/2016 05:27:Imani Wadsworth RN) Inf Hx Human Papilloma Virus: No (08/27/2016 05:27:Imani Wadsworth RN) Inf Hx Pt/Partner Genital Herpes: No (08/27/2016 05:27:Imani Wadsworth RN) Inf Hx Tuberculosis/Exposure: No (08/27/2016 05:27:Imani Wadsworth RN) Inf Hx Hepatitis B,C: No (08/27/2016 05:27:Imani Wadsworth RN) Inf Hx Rash or Viral Illness: No (08/27/2016 05:27:Imani Wadsworth RN) GENETIC HISTORY Gen Hx Age >=35 at [place]: No (08/27/2016 05:27:Imani Wadsworth RN) Gen Hx Thalassemia: No (08/27/2016 05:27:Imani Wadsworth RN) Gen Hx Congenital Heart Defect: No (08/27/2016 05:27:Imani Wadsworth RN) Gen Hx Neural Tube Defect: No (08/27/2016 05:27:Imani Wadsworth RN) Gen Hx Down's Syndrome: No (08/27/2016 05:27:Imani Wadsworth RN) Gen Hx Samuel-Sachs: No (08/27/2016 05:27:Imani Wadsworth RN) Gen Hx Francisco: No (08/27/2016 05:27:Imani Wadsworth RN) Gen Hx Familial Dysautonomia: No (08/27/2016 05:27:Imani Wadsworth RN) Gen Hx Sickle Cell Disease/Trait: No (08/27/2016 05:27:Imani Wadsworth RN) Gen Hx Hemophilia/Blood Disorder: No (08/27/2016 05:27:Imani Wadsworth RN) Gen Hx Muscular Dystrophy: No (08/27/2016 05:27:Imani Wadsworth RN) Gen Hx Cystic Fibrosis: No (08/27/2016 05:27:Imani Wadsworth RN) Gen Hx Huntingtons Chorea: No (08/27/2016 05:27:Imani Wadsworth RN) Gen Hx Mental Retardation/Autism: No (08/27/2016 05:27:Imani Wadsworth RN) Gen Hx Tested for Fragile X: No (08/27/2016 05:27:Imani Wadsworth RN) Gen Hx Other Inher/Chromosomal: No (08/27/2016 05:27:Imani Wadsworth RN) Gen Hx Maternal Metabolic DO: No (08/27/2016 05:27:Imani Wadsworth RN) Gen Hx Pt Father or FOB Defect: No (08/27/2016 05:27:Imani Wadsworth RN) Gen Hx Other Genetic History: No (08/27/2016 05:27:Imani Wadsworth RN) Gen Hx Drugs/Meds since LMP: No (08/27/2016 05:27:Imani Wadsworth RN)
[2016-09-21] MEDS: IBUPROFEN 800 MG TABLET PO SCH ×2 (05:02→13:19)
--- NOTE | 2016-09-21 06:01 | L&D Current Admission ---
Current Admit Datetime Report Generated by CPN: 09/21/2016 06:00 ADMISSION INFORMATION Current Admit Date/Time: 09/19/2016 17:47 (09/19/2016 17:47:Nguyen Menchaca RN) Reason for Admission: Rupture of Membranes (09/19/2016 17:47:Nguyen Menchaca RN) Chief Complaint: Suspected Rupture of Membranes (09/19/2016 18:05:Nguyen Menchaca RN) Medications During : Vitamin (09/19/2016 17:47:Nguyen Menchaca RN) EGA per Dates: 36.6 (09/19/2016 17:47:QS system process) Method of Arrival: Ambulatory (09/19/2016 17:47:Nguyen Menchaca RN) Admitted From: Home (09/19/2016 17:47:Nguyen Menchaca RN) Reason for Induction: Not Applicable (09/19/2016 17:47:Nguyen Menchaca RN) Records Available: Yes; No (09/19/2016 17:47:Nguyen Menchaca RN) General Admission Information: Reviewed; Updated (09/19/2016 17:47:Nguyen Menchaca RN) General Admission Reviewed By: Jose David Pepe RN (09/19/2016 17:47:Nguyen Menchaca RN) BELONGINGS/ADVANCED DIRECTIVES Valuables/Personal Effects: Purse/Wallet; Cell Phone; Camera (09/19/2016 17:47:Nguyen Menchaca RN) Other Belongings: clothing (09/19/2016 17:47:Nguyen Menchaca RN) Disposition of Belongings: Sent Home (09/19/2016 17:47:Nguyen Menchaca RN) Advance Direct for Healthcare: No, and Wants No Information (09/19/2016 17:47:Nguyen Menchaca RN) Durable Power of Instructor Dramatic Arts: No (09/19/2016 17:47:Nguyen Menchaca RN) Living Will: No (09/19/2016 17:47:Nguyen Menchaca RN) Organ Donor: Yes (09/19/2016 17:47:Nguyen Menchaca RN) Pt Rights Information Given: Yes (09/19/2016 17:47:Nguyen Menchaca RN) Pt Understands Pt Rights: Yes (08/27/2016 05:31:KHARI Black) LEARNING ASSESSMENT Knowledge Level: Understands L_D Process; Understands Care Activities; Had Pre-Hospital Education; Understands Diagnosis (09/19/2016 17:47:Nguyen Menchaca RN) Barriers to Learning: None (09/19/2016 17:47:Nguyen Menchaca RN) Learning Readiness: Motivated (09/19/2016 17:47:Nguyen Menchaca RN) Learns Best By: 1 to 1 Instruction; Demonstration (09/19/2016 17:47:Nguyen Menchaca RN) Learning Needs: Labor and Delivery Process; Pain Management; Symptoms to Report; Treatment Plan; Medication; Diagnosis; Nutrition; Equipment; Care; Community Resources (09/19/2016 17:47:Nguyen Menchaca RN) DOMESTIC VIOLANCE SCREENING Dom Viol Threatened/Hurt: No (09/19/2016 17:47:Nguyen Menchaca RN) Hx of Abuse/Neglect past 2yrs: No (09/19/2016 17:47:Nguyen Menchaca RN) Feel Unsafe Going Home: No (09/19/2016 17:47:Nguyen Menchaca RN) Addt'l Observ Indicating Abuse: No (09/19/2016 17:47:Nguyen Menchaca RN) Reason Unable to Complete Screen: N/A, Screen Completed (09/19/2016 17:47:Nguyen Menchaca RN) Considered Personal Harm/Suicide: No (09/19/2016 17:47:Nguyen Menchaca RN) NUTRITIONAL/FUNCTIONAL SCREENING Problem with Appetite >5 Days: No (09/19/2016 17:47:Nguyen Menchaca RN) Chew/Swallow Difficulties: No (09/19/2016 17:47:Nguyen Menchaca RN) Inappropriate Wt Gain/Loss: No (09/19/2016 17:47:Nguyen Menchaca RN) Presence Skin Breakdown/Ulcer: No (09/19/2016 17:47:Nguyen Menchaca RN) Special Diet: No (09/19/2016 17:47:Nguyen Menchaca RN) Pt Requests Immersion Metalcleaner Visit: No (09/19/2016 17:47:Nguyen Menchaca RN) Hx of Any of the Following?: N/A (09/19/2016 17:47:Nguyen Menchaca RN) New Diagnosis of: N/A (09/19/2016 17:47:Nguyen Menchaca RN) Requires Assist w/Ambulation: No (09/19/2016 17:47:Nguyen Menchaca RN) Uses Assist Device to Ambulate: No (09/19/2016 17:47:Nguyen Menchaca RN) Pt Requires Help w/ADL's: No (09/19/2016 17:47:Nguyen Menchaca RN)
--- NOTE | 2016-09-21 06:01 | L&D General Admission ---
General Admit Datetime Report Generated by CPN: 09/21/2016 06:00 INFORMATION Patient Age: 31 (08/02/2016 13:04:QS system process) EDC: 10/11/2016 00:00 (08/27/2016 05:27:Imani Wadsworth RN) : 3 (08/27/2016 05:27:Imani Wadsworth RN) Para: 2 (08/28/2016 09:54:Nguyen Menchaca RN) Term: 2 (08/27/2016 05:27:KHARI Black) : 0 (08/27/2016 05:27:KHARI Black) Spontaneous Abortions: 0 (08/27/2016 05:27:KHARI Black) Induced Abortions: 0 (08/27/2016 05:27:KHARI Black) Livin (08/27/2016 05:27:Imani Wadsworth RN) Cesareans: 0 (08/27/2016 05:27:KHARI Black) VBACs: 0 (08/27/2016 05:27:KHARI Black) Ectopic: 0 (08/27/2016 05:27:KHARI Black) Multiple Births: 1 (08/27/2016 05:27:KHARI Black) Baby, Number in Womb: 2 (08/28/2016 09:54:Nguyen Menchaca RN) CARE Primary Delivery Tech: [facility] (08/27/2016 05:27:Imani Wadsworth RN) Month of 1st Visit: february (08/27/2016 05:27:KHARI Black) Adequate Care: Yes (08/27/2016 05:27:Imani Wadsworth RN) Prepregnancy Weight (lb): 168 (08/27/2016 05:27:KHARI Black) Prepregnancy Weight (kg): 76.4 (08/27/2016 05:27:QS system process) Height (in): 66 (09/20/2016 15:19:QS system process) ALLERGIES Medication Allergy: No (08/27/2016 05:27:Imani Wadsworth RN) Medication Allergies: No Known Allergies (08/27/2016) (08/27/2016 05:35:QS system process) Latex Allergy: No Latex Allergies (08/27/2016 05:27:Imani Wadsworth RN) Food Allergies: NA (08/27/2016 05:27:Imani Wadsworth RN) Environmental Allergies: NA (08/27/2016 05:27:Crystal BAUDILIO Wadsworth) COMMUNICATION Primary Language: [place] African (08/27/2016 05:27:Imani Wadsworth RN) Medical Tx Preferred Language: [place] African (08/27/2016 05:27:Claribel Barrientos RN) Communication Barrier(s): None (08/27/2016 05:27:Imani Wadsworth RN) DEMOGRAPHICS Address: [address] [place] [id number] (08/02/2016 13:04:QS system process) Zipcode: [address] (08/02/2016 13:04:QS system process) Home (08/02/2016 13:04:QS system process) SSN: [id number] (08/02/2016 13:04:QS system process) Next of Kin Name: CYNTHIA SMITH (08/02/2016 13:04:QS system process) Next of Kin (09/13/2016 14:29:QS system process) Next of Kin Relationship: SPO (08/02/2016 13:04:QS system process) Date of : 1985 (08/02/2016 13:04:QS system process) Marital Status: (08/02/2016 13:04:QS system process) Sex: Female (08/02/2016 13:04:QS system process) Race: (08/02/2016 13:04:QS system process) Ethnicity: Non- or (08/02/2016 13:04:QS system process) Caodaism: Nondenominational (08/02/2016 13:04:QS system process) DRUG AND ALCOHOL USE Alcohol: No (08/27/2016 05:27:Imani Wadsworth RN) Cigarettes: Former Smoker. [id number] (08/27/2016 05:27:Imani Wadsworth RN) Marijuana: No (08/27/2016 05:27:Iamni Wadsworth RN) Cocaine: No (08/27/2016 05:27:Imani Wadsworth RN) Other Illicit Drugs: No (08/27/2016 05:27:Imani Wadsworth RN) VACCINE HISTORY Influenza Vaccine: No (08/27/2016 05:27:Imani Wadsworth RN) Pneumococcal Vaccine: No (08/27/2016 05:27:Imani Wadsworth RN) Tetanus Vaccine: No (08/27/2016 05:27:Imani Wadsworth RN) Tdap Vaccine: Yes (08/27/2016 05:27:Imani Wadsworth RN) Tdap Date: 07/21/2016 (08/27/2016 05:27:Imani Wadsworth RN) Hepatitis B Vaccine: No (08/27/2016 05:27:Imani Wadsworth RN) Knitter Operator: [facility] (08/27/2016 05:27:Nguyen Menchaca RN) Feeding Preference: Breast (08/27/2016 05:27:Imani Wadsworth RN) Benefit of Breast Feed Discussed: Yes (08/27/2016 05:27:Imani Wadsworth RN) Circumcision: Yes (08/27/2016 05:27:Imani Wadsworth RN) Classes Attended: No (08/27/2016 05:27:Imani Wadsworth RN) Tubal Ligation: No (08/27/2016 05:27:Imani Wadsworth RN) Tubal Authorization Signed: N/A (08/27/2016 05:27:Imani Wadsworth RN) Consent: N/A (08/27/2016 05:27:Imani Wadsworth RN) Consent Signed: N/A (08/27/2016 05:27:Imani Wadsworth RN) Pain Management Plans: Epidural (08/27/2016 05:27:Imani Wadsworth RN) Plans for Labor and Delivery: None (08/27/2016 05:27:Imani Wadsworth RN) Support Person: Porfirio Smith (08/27/2016 05:27:Imani Wadsworth RN) Support Person Relationship: (08/27/2016 05:27:Imani Wadsworth RN) Cultural/Spritual Practice: Yes (08/27/2016 05:27:Imani Wadsworth RN) Spir/Cult Dietary Needs: Yes (08/27/2016 05:27:Imani Wadsworth RN) LIVING SITUATION/DISCHARGE PLAN Living Arrangements: House (08/27/2016 05:27:Imani Wadsworth RN) Adequate Access to:: Electric; Heat; Refrigeration; Plumbing/Running water; Phone; Transportation (08/27/2016 05:27:Imani Wadsworth RN) WIC Program: Yes (08/27/2016 05:27:Imani Wadsworth RN) Discharge Shake Splitter Person: Porfirio Smith (08/27/2016 05:27:Imani Wadsworth RN) Person to Help after Discharge: Porfirio Smith (08/27/2016 05:27:Imani Wadsworth RN) Currently Using Commun Resources: Yes (08/27/2016 05:27:Imani Wadsworth RN) Specify Current Resource Used: Food stamps (08/27/2016 05:27:Imani Wadsworth RN) Outside Agency/Plate Mounter: Yes (08/27/2016 05:27:Imani Wadsworth RN) Car Seat for Discharge: Yes (08/27/2016 05:27:Imani Wadsworth RN) Adoption Requested: No (08/27/2016 05:27:Imani Wadsworth RN) Pt Contact w/ Post : N/A (08/27/2016 05:27:Imani Wadsworth RN) LABS Blood Type: A Positive (08/27/2016 05:27:Imani Wadsworth RN) Antibody Screen: Negative (08/27/2016 05:27:Imani Wadsworth RN) Hemoglobin: 12.4 (09/20/2016 14:31:QS system process) Hematocrit: 36.0 (09/20/2016 14:31:QS system process) MCV: 92 (09/20/2016 14:31:QS system process) Group Beta Strep: Negative (08/27/2016 05:27:Samantha Theodore RN) Gonorrhea: Negative (08/27/2016 05:27:Imani Wadsworth RN) Chlamydia: Negative (08/27/2016 05:27:Imani Wadsworth RN) Rubella: Immune (08/27/2016 05:27:Imani Wadsworth RN) OB/PREVIOUS HISTORY Previous Procedures: NST (08/27/2016 05:27:Imani Wadsworth RN) Current Procedures: Ultrasound; NST (08/27/2016 05:27:Imani Wadsworth RN) History of Previous : No (08/27/2016 05:27:Imani Wadsworth RN) History of Gestational Diabetes: No (08/27/2016 05:27:Imani Wadsworth RN) History of PIH: No (08/27/2016 05:27:Imani Wadsworth RN) History of Incompetent Cervix: No (08/27/2016 05:27:Imani Wadsworth RN) History of Placenta Previa/Abrup: No (08/27/2016 05:27:Imani Wadsworth RN) History of Macrosomia: No (08/27/2016 05:27:Imani Wadsworth RN) History of IUGR: No (08/27/2016 05:27:Imani Wadsworth RN) History of Hemorrhage: No (08/27/2016 05:27:Imani Wadsworth RN) History of Loss/Stillborn: No (08/27/2016 05:27:Imani Wadsworth RN) History of : No (08/27/2016 05:27:Imani Wadsworth RN) History of D (Rh) Sensitization: No (08/27/2016 05:27:Imani Wadsworth RN) History Recurrent Loss/Stillborn: No (08/27/2016 05:27:Imani Wadsworth RN) History Depression/PP Depression: No (08/27/2016 05:27:Imani Wadsworth RN) History of Uterine Anomaly/NAVID: No (08/27/2016 05:27:Imani Wadsworth RN) History of Infertility: No (08/27/2016 05:27:Imani Wadsworth RN) History of ART Treatment: No (08/27/2016 05:27:Imani Wadsworth RN) History of NAVID: No (08/27/2016 05:27:Imani Wadsworth RN) Comments Obstetrical History: 04/10/2011- vaginal delivery 8lbs 08/14/2014- vaginal delivery 8 lbs 10 oz G3: current chris twins marginal insertion marginal insertion of twin A (08/27/2016 05:27:Jesica Vargas RN) MEDICAL HISTORY Med Hx Diabetes: No (08/27/2016 05:27:Imani Wadsworth RN) Med Hx Hypertension: No (08/27/2016 05:27:Imani Wadsworth RN) Med Hx Heart Disease: No (08/27/2016 05:27:Imani Wadsworth RN) Med Hx Autoimmune Disorder: No (08/27/2016 05:27:Imani Wadsworth RN) Med Hx Kidney Disease/UTI: No (08/27/2016 05:27:Imani Wadsworth RN) Med Hx Neurologic/Epilepsy: No (08/27/2016 05:27:Imani Wadsworth RN) Med Hx Psychiatric Disorders: No (08/27/2016 05:27:Imani Wadsworth RN) Med Hx Hepatitis/Liver Disease: No (08/27/2016 05:27:Imani Wadsworth RN) Med Hx Varicosities/Phlebitis: No (08/27/2016 05:27:Imani Wadsworth RN) Med Hx Thyroid Dysfunction: No (08/27/2016 05:27:Imani Wadsworth RN) Med Hx Trauma/Violence: No (08/27/2016 05:27:Imani Wadsworth RN) Med Hx Blood Transfusion: No (08/27/2016 05:27:Imani Wadsworth RN) Med Hx Pulmonary (Asthma,TB): No (08/27/2016 05:27:Imani Wadsworth RN) Med Hx Breast: No (08/27/2016 05:27:Imani Wadsworth RN) Med Hx POWER SAW OPERATOR Surgery: No (08/27/2016 05:27:Imani Wadsworth RN) Med Hx Hospitalization/Surgery: No (08/27/2016 05:27:Imani Wadsworth RN) Med Hx Anesthetic Complications: No (08/27/2016 05:27:Imani Wadsworth RN) Med Hx Abnormal Pap Smear: No (08/27/2016 05:27:Imani Wadsworth RN) Other Medical Diseases: No (08/27/2016 05:27:Imani Wadsworth RN) Med Hx Significant Family Hx: No (08/27/2016 05:27:Imani Wadsworth RN) INFECTIOUS HISTORY Inf Hx Gonorrhea: No (08/27/2016 05:27:Imani Wadsworth RN) Inf Hx Chlamydia: No (08/27/2016 05:27:Imani Wadsworth RN) Inf Hx Syphilis: No (08/27/2016 05:27:Imani Wadsworth RN) Inf Hx HIV/AIDS: No (08/27/2016 05:27:Imani Wadsworth RN) Inf Hx Human Papilloma Virus: No (08/27/2016 05:27:Imani Wadsworth RN) Inf Hx Pt/Partner Genital Herpes: No (08/27/2016 05:27:Imani Wadsworth RN) Inf Hx Tuberculosis/Exposure: No (08/27/2016 05:27:Imani Wadsworth RN) Inf Hx Hepatitis B,C: No (08/27/2016 05:27:Imani Wadsworth RN) Inf Hx Rash or Viral Illness: No (08/27/2016 05:27:Imani Wadsworth RN) GENETIC HISTORY Gen Hx Age >=35 at [place]: No (08/27/2016 05:27:Imani Wadsworth RN) Gen Hx Thalassemia: No (08/27/2016 05:27:Imani Wadsworth RN) Gen Hx Congenital Heart Defect: No (08/27/2016 05:27:Imani Wadsworth RN) Gen Hx Neural Tube Defect: No (08/27/2016 05:27:Imani Wadsworth RN) Gen Hx Down's Syndrome: No (08/27/2016 05:27:Imani Wadsworth RN) Gen Hx Samuel-Sachs: No (08/27/2016 05:27:Imani Wadsworth RN) Gen Hx Francisco: No (08/27/2016 05:27:Imani Wadsworth RN) Gen Hx Familial Dysautonomia: No (08/27/2016 05:27:Imani Wadsworth RN) Gen Hx Sickle Cell Disease/Trait: No (08/27/2016 05:27:Imani Wadsworth RN) Gen Hx Hemophilia/Blood Disorder: No (08/27/2016 05:27:Imani Wadsworth RN) Gen Hx Muscular Dystrophy: No (08/27/2016 05:27:Imani Wadsworth RN) Gen Hx Cystic Fibrosis: No (08/27/2016 05:27:Imani Wadsworth RN) Gen Hx Huntingtons Chorea: No (08/27/2016 05:27:Imani Wadsworth RN) Gen Hx Mental Retardation/Autism: No (08/27/2016 05:27:Imani Wadsworth RN) Gen Hx Tested for Fragile X: No (08/27/2016 05:27:Imani Wadsworth RN) Gen Hx Other Inher/Chromosomal: No (08/27/2016 05:27:Imani Wadsworth RN) Gen Hx Maternal Metabolic DO: No (08/27/2016 05:27:Imani Wadsworth RN) Gen Hx Pt Father or FOB Defect: No (08/27/2016 05:27:Imani Wadsworth RN) Gen Hx Other Genetic History: No (08/27/2016 05:27:Imani Wadsworth RN) Gen Hx Drugs/Meds since LMP: No (08/27/2016 05:27:Imani Wadsworth RN)
--- NOTE | 2016-09-21 06:16 | L&D Care Plan ---
LD CARE PLANS Datetime Report Generated by CPGreg: 09/21/2016 06:15 Datetime: 09/19/2016 17:44 State: Risk For (Nguyen Menchaca RN) Related To: Labor and Delivery Process; Surgical Procedure; Complication(s) of ; Disease Process; Treatment and Procedures; Post (Nguyen Menchaca RN) Goal(s): Patients Pain will be Assessed and Managed; Patient will Verbalize Adequate Relief of Pain or the Ability to [place] with Current Pain (Nguyen Menchaca RN) Interventions: Assess Pain Severity on Scale of 0 (None) to 5 (Severe); Assess Type, Location and Intensity of Pain Each Time Client Reports Discomfort and Notify Provider if Unusal Pain Develops; Encourage Proper Breathing and Relaxation Techniques; Offer Alternatives Such as Repositioning, Calm Environment, Massages, Diversional Activities, Ice Pack, Splinting, and Ambulation; Administer Analgesics as Ordered; Assist with Epidural Placement as Appropriate; Evaluate Therapeutic Effectiveness of Medication and Treatments (Nguyen Menchaca RN) Outcome: Patient will Report Absence or Relief of Pain Consistent with Established Pain Goal (Nguyen Menchaca RN) Status: Ongoing (Nguyen Menchaca RN) Outcome: Patient will have a Decrease in Signs and Symptoms of Discomfort (Nguyen Menchaca RN) Status: Ongoing (Nguyen Menchaca RN) Outcome: Pain will be Controlled During Procedures (Nguyen Menchaca RN) Status: Ongoing (Nguyen Menchaca RN) State: Risk For (Nguyen Menchaca RN) Related To: Labor and Delivery Process; Surgical Procedure; Perceived or Actual Threat to ; Fear of Unknown; Medical Interventions (Nguyen Menchaca RN) Goal(s): Patient will have Decreased Anxiety and be able to Function at Acceptable Levels (Nguyen Menchaca RN) Interventions: Assess Verbal and Nonverbal Behavioral Indicators of Anxiety; Assist Patient to Identify and Verbalize Symptoms of Anxiety; Identify and Demonstrate Techniques to Control Anxiety; Assist Patient with Coping Mechanisms to Manage Anxiety; Provide Theraputic Touch for the Patient; Explain to Patient, Using a Calm Reassuring Approach and Nonmedical Terms, All Activities, Procedures, and Concerns; Instruct Patient and Family about Post Discharge Care, Limitations, Symptoms to Report and Resources Available (Nguyen Menchaca RN) Outcome: Patient will Identify, Verbalize and Demonstrate Techniques to Control Anxiety (Nguyen Menchaca RN) Status: Ongoing (Nguyen Menchaca RN) Outcome: Patient's Posture, Facial Expressions, Gestures and Activity Level will Reflect Decreased Anxiety (Nguyen Menchaca RN) Status: Ongoing (Nguyen Menchaca RN) Outcome: Patient will Verbalize a Sense of Control and/or Acceptance of the Situation (Nguyen Menchaca RN) Status: Ongoing (Nguyen Menchaca RN) Outcome: Patient will Identify and Utilize Support Person (Nguyen Menchaca RN) Status: Ongoing (Nguyen Menchaca RN) State: Risk For (Nguyen Menchaca RN) Related To: Gestational Hypertension; Surgical Procedures; Prolonged Labor or Induction; Hemorrhage; Disease Process; Anesthesia; Altered Renal Function (Nguyen Menchaca RN) Goal(s): Patient will Achieve and Maintain a Balanced Fluid Volume Status; Hemodynamically Stable (Nguyen Menchaca RN) Interventions: Monitor Vital Signs; Auscultate Breath Sounds; Monitor Patient for Skin Turgor, Mucous Membranes, Dry Skin, Weakness, Headaches and Confusion; Provide Oral Fluids as Ordered; Initiate and Maintain Intravenous Fluids as Ordered; Monitor Intake and Output as Indicated Per Patient Status; Accurately Measure Blood Loss; Monitor Lab and Test Results as Obtained and Notify Provider of Abnormal Findings; Monitor Patient's Weight (Nguyen Menchaca RN) Outcome: Patient will have Clear Lung Sounds (Nguyen Menchaca RN) Status: Ongoing (Nguyen Menchaca RN) Outcome: Patient will have Vital Signs within Expected Range (Nguyen Menchaca RN) Status: Ongoing (Nguyen Menchaca RN) Outcome: Urine Output will be within Expected Range (Nguyen Menchaca RN) Status: Ongoing (Nguyen Menchaca RN) Outcome: Patient will have Minimal Generalized or Upper Extremity Edema (Nguyen Menchaca RN) Status: Ongoing (Nguyen Menchaca RN) Datetime: 09/19/2016 17:43 State: Risk For (Nguyen Menchaca RN) Related To: Labor and Delivery Process; Surgical Procedure; Complication(s) of ; Disease Process; Treatment and Procedures; Post (Nguyen Menchaca RN) Goal(s): Patients Pain will be Assessed and Managed; Patient will Verbalize Adequate Relief of Pain or the Ability to [place] with Current Pain (Nguyen Menchaca RN) Interventions: Assess Pain Severity on Scale of 0 (None) to 5 (Severe); Assess Type, Location and Intensity of Pain Each Time Client Reports Discomfort and Notify Provider if Unusal Pain Develops; Encourage Proper Breathing and Relaxation Techniques; Offer Alternatives Such as Repositioning, Calm Environment, Massages, Diversional Activities, Ice Pack, Splinting, and Ambulation; Administer Analgesics as Ordered; Assist with Epidural Placement as Appropriate; Evaluate Therapeutic Effectiveness of Medication and Treatments (Nguyen Menchaca RN) Outcome: Patient will Report Absence or Relief of Pain Consistent with Established Pain Goal (Nguyen Menchaca RN) Status: Ongoing (Nguyen Menchaca RN) Outcome: Patient will have a Decrease in Signs and Symptoms of Discomfort (Nguyen Menchaca RN) Status: Ongoing (Nguyen Menchaca RN) Outcome: Pain will be Controlled During Procedures (Nguyen Menchaca RN) Status: Ongoing (Nguyen Menchaca RN) State: Risk For (Nguyen Menchaca RN) Related To: Labor and Delivery Process; Surgical Procedure; Perceived or Actual Threat to ; Fear of Unknown; Medical Interventions (Nguyen Menchaca RN) Goal(s): Patient will have Decreased Anxiety and be able to Function at Acceptable Levels (Nguyen Menchaca RN) Interventions: Assess Verbal and Nonverbal Behavioral Indicators of Anxiety; Assist Patient to Identify and Verbalize Symptoms of Anxiety; Identify and Demonstrate Techniques to Control Anxiety; Assist Patient with Coping Mechanisms to Manage Anxiety; Provide Theraputic Touch for the Patient; Explain to Patient, Using a Calm Reassuring Approach and Nonmedical Terms, All Activities, Procedures, and Concerns; Instruct Patient and Family about Post Discharge Care, Limitations, Symptoms to Report and Resources Available (Nguyen Menchaca RN) Outcome: Patient will Identify, Verbalize and Demonstrate Techniques to Control Anxiety (Nguyen Menchaca RN) Status: Ongoing (Nguyen Menchaca RN) Outcome: Patient's Posture, Facial Expressions, Gestures and Activity Level will Reflect Decreased Anxiety (gNuyen Menchaca RN) Status: Ongoing (Nguyen Menchaca RN) Outcome: Patient will Verbalize a Sense of Control and/or Acceptance of the Situation (Nguyen Menchaca RN) Status: Ongoing (Nguyen Menchaca RN) Outcome: Patient will Identify and Utilize Support Person (Nguyen Menchaca RN) Status: Ongoing (Nguyen Menchaca RN) State: Risk For (Nguyen Menchaca RN) Related To: Gestational Hypertension; Surgical Procedures; Prolonged Labor or Induction; Hemorrhage; Disease Process; Anesthesia; Altered Renal Function (Nguyen Menchaca RN) Goal(s): Patient will Achieve and Maintain a Balanced Fluid Volume Status; Hemodynamically Stable (Nguyen Menchaca RN) Interventions: Monitor Vital Signs; Auscultate Breath Sounds; Monitor Patient for Skin Turgor, Mucous Membranes, Dry Skin, Weakness, Headaches and Confusion; Provide Oral Fluids as Ordered; Initiate and Maintain Intravenous Fluids as Ordered; Monitor Intake and Output as Indicated Per Patient Status; Accurately Measure Blood Loss; Monitor Lab and Test Results as Obtained and Notify Provider of Abnormal Findings; Monitor Patient's Weight (Nguyen Menchaca RN) Outcome: Patient will have Clear Lung Sounds (Nguyen Menchaca RN) Status: Ongoing (Nguyen Menchaca RN) Outcome: Patient will have Vital Signs within Expected Range (Nguyen Menchaca RN) Status: Ongoing (Nguyen Menchaca RN) Outcome: Urine Output will be within Expected Range (Nguyen Menchaca RN) Status: Ongoing (Nguyen Menchaca RN) Outcome: Patient will have Minimal Generalized or Upper Extremity Edema (Nguyen Menchaca RN) Status: Ongoing (Nguyen Menchaca RN)
[2016-09-21 07:28] LABS: HEMATOCRIT 35.5 % (36.0-47.0); HEMOGLOBIN 12.2 g/dL (12.0-15.5); HGB HCT DIFFERENCE 1.1; MEAN CORPUSCULAR HEMOGLOBIN 31.6 pg (27.0-33.4); MEAN CORPUSCULAR HGB CONC 34.4 g/dL (32.0-36.0); MEAN CORPUSCULAR VOLUME 92 fl (80-97); RED BLOOD COUNT 3.86 10^6/uL (3.72-5.28); RED CELL DISTRIBUTION WIDTH 13.7 % (11.5-14.0); WHITE BLOOD COUNT 11.5 10^3/uL (4.0-10.5)
[2016-09-21 08:46] VITALS: BP 116/77
[2016-09-21] MEDS: PRENATAL VITAMIN W-O CA NO5/FE FUMARATE/FA CAPSULE PO SCH (10:19)
[2016-09-21] MEDS: FERROUS SULFATE 325 MG TABLET PO SCH (10:19)
[2016-09-21] MEDS: SENNOSIDES/DOCUSATE 8.6-50 MG 1 EACH TABLET PO SCH (10:20)
[2016-09-21] MEDS: DOCUSATE SODIUM 100 MG CAPSULE PO SCH (10:20)
--- NOTE | 2016-09-21 12:07 | PDOC DISCHARGE SUMMARY ---
Final Diagnosis Discharge Date: 09/21/16 - Final Diagnosis (2) Twin Is this a current diagnosis for this admission?: Yes (3) Vaginal delivery Is this a current diagnosis for this admission?: Yes Discharge Data - Discharge Medication Home Medications: Ranitidine HCl [Zantac 150 mg Tablet] 1 cap PO BID 08/27/16 Reason(s) for Admission: Onset of Labor Procedures: None Intrapartum Procedure(s): Spontaneous Vaginal Delivery Complication(s): Laceration-Perineal Laceration-Degree: 2nd - Data Baby 1 at 1 minute: 9 at 5 minutes: 9 Weight: 2590 kg Home with Mother: Yes Complications: No Baby 2 Male at 1 minute: 8 at 5 minutes: 9 Weight: 2630 kg Home with Mother: Yes Complications: No - Diagnosis Test Laboratory: Temp Pulse Resp BP Pulse Ox 98.2 F 72 16 116/77 98 09/21/16 08:43 09/21/16 08:43 09/21/16 08:43 09/21/16 08:27 09/21/16 08:43 09/19/16 09/19/16 09/20/16 17:30 18:06 14:31 RBC 4.31 3.92 Hgb 13.5 12.4 Hct 39.7 36.0 Urine Opiates Screen NEGATIVE 09/21/16 07:21 RBC 3.86 Hgb 12.2 Hct 35.5 L Urine Opiates Screen - Discharge information/Instructions Discharge Activity: Activity As Tolerated, Pelvic Rest, No tub bath Discharge Diet: Regular Disposition: HOME, SELF-CARE Follow up with: [facility] in: 4
--- NOTE | 2016-09-22 11:28 | Delivery Summary ---
Del Sum A-C Datetime Report Generated by CPN: 09/22/2016 11:28 ADMISSION DATA Chief Complaint: Uterine Contractions Indication for Induction: Not Applicable Admission Impression: , Intrauterine ; Active Labor; Ruptured Membranes Admission Impression Comments: Di-Di Twins Vertex/Breech Admit Provider Comments: Pt desires attempted vaginal of her twins DELIVERY PERSONNEL Delivery Doctor:: Glenny Lezama MD Labor and Delivery Nurse:: Cynthia Pepe RNdivision field inspector Nurse:: Denisha Freedman RN Nursery Nurse:: Virginia Godoy RN Nursery Nurse:: Sharona Reyes RN Student Observers:: Yann Robles [facility] SN Emergency Registrar/DIRECTOR OF CORPORATE REAL ESTATE: Parker Ramirez CST Emergency Registrar/DIRECTOR OF CORPORATE REAL ESTATE: Deepa Bhandari CST Additional Personnel: : Marcus Chaney DO MATERNAL INFORMATION Delivery Anesthesia: None Medications After Delivery: Pitocin Bolus-Please Comment Meds After Delivery Comment: 20 Units Pitocin _1000ml NS Bolus Estimated Blood Loss (ml): 300 Maternal Complications: Premature Rupture of Membranes Provider Comments: Pt progressed to complete and pushing. Twin A delivered OA. Cord clamped and cut. Twin B was then oblique with head to maternal left and down. Guided to vtx. Initially had hand just below head but retracted with stimulation. Arom clear. Pt then pushed to delivery of B. Head delivered OA. Shoulders and body delivered easily. Cord clamped and cut. Placent spont and intact. LABOR SUMMARY EDC: 10/11/2016 00:00 No. Babies in Womb: 2 Attempted: No Labor Anesthesia: None LABOR INFORMATION Reason for Induction: Not Applicable Onset of Labor: 09/19/2016 17:00 Complete Dilatation: 09/19/2016 18:20 Oxytocin: N/A Group B Beta Strep: Negative Antibiotics # of Doses: 0 Steroids Given: None Reason Steroids Not Administered: Not Applicable MEMBRANES Membranes Rupture Method: Spontaneous Rupture of Membranes: 09/19/2016 17:00 Length of Rupture (hr): 1.45 Amniotic Fluid Color: Clear Amniotic Fluid Amount: Moderate Amniotic Fluid Odor: Normal STAGES OF LABOR Stage 1 hr: 1 Stage 1 min: 20 Stage 2 hr: 0 Stage 2 min: 7 Stage 3 hr: 0 Stage 3 min: 12 Total Time in Labor hr: 1 Total Time in Labor min: 39 VAGINAL DELIVERY Episiotomy: None Laceration Extension: Second Degree Laceration Type: Perineal Laceration Repair: Yes Laceration Repair Note: with 1 percent lidocaine and 2-0 chromic Sponge Count Correct: N/A CSECTION DELIVERY Primary Indication: N/A Secondary Indication: N/A CSection Urgency: N/A CSection Incidence: N/A Labor: N/A Elective: N/A BABY A INFORMATION Delivery Date/Time: 09/19/2016 18:27 Method of Delivery: Vaginal Born in Route : No : N/A Forceps: N/A Vacuum Extraction: N/A Shoulder Dystocia : No PRESENTATION/POSITION BABY A Presentation: Cephalic Cephalic Presentation: Vertex Vertex Position: Left Occipital Anterior Breech Presentation: N/A PLACENTA INFORMATION BABY A Placenta Delivery Time : 09/19/2016 18:39 Placenta Method of Delivery: Spontaneous Placenta Status: Delivered SCORES BABY A Heart Rate 1 min: >100 bpm Resp Effort 1 min: Good Cry Reflex Irritability 1 min: Cough or Sneeze or Pulls Away Muscle Tone 1 min: Active Motion Color 1 min: Body Lannon, Extremities Blue Resuscitation Effort 1 min: Tactile Stimulation SCORE 1 MIN: 9 Heart Rate 5 min: >100 bpm Resp Effort 5 min: Good Cry Reflex Irritability 5 min: Cough or Sneeze or Pulls Away Muscle Tone 5 min: Active Motion Color 5 min: Body Lannon, Extremities Blue Resuscitation Effort 5 min: Tactile Stimulation SCORE 5 MIN: 9 INFORMATION BABY A Gestational Age at Delivery: 36.6 Gestational Status: Late - 34- 36.6 Weeks Infant Outcome : Liveborn Infant Condition : Stable Infant Sex: Male IDENTIFICATION BABY A Verification Date/Time: 09/19/2016 18:55 ID Band Number: [id number] Mother's Name Verified: Yes Infant RN Verifying : Marie Menchaca RN and Tomás Freedman RN WEIGHT/LENGTH BABY A Birthweight (gm): 2590 Weight (lb): 5 Infant Weight (oz): 11 Infant Length (in): 18.50 Length (cm): 46.99 CORD INFORMATION BABY A No. Cord Vessels: 3 Nuchal Cord : N/A Cord Blood Taken: Yes-For Storage (Mom's Blood type +) Suction: Mouth; Nose ASSESSMENT BABY A Infant Complications: None Physical Findings at Delivery: Within Normal Limits Infant Respirations: Appears Normal Skin to Skin: Yes Skin to Skin Time (min): 60 Radio Repairer Domestic/ALS Called : No Infant Care By: Tomás Godoy RN Transferred To: Remains with Mother BABY B INFORMATION Delivery Date/Time: 09/19/2016 18:36 Method of Delivery : Vaginal Born in Route : No : N/A Forceps : N/A Vacuum Extraction: N/A Shoulder Dystocia : No SHOULDER DYSTOCIA BABY B Delivery Date/Time: 09/19/2016 18:36 PRESENTATION/POSITION BABY B Presentation : Cephalic Cephalic Position : Vertex Vertex Position: Right Occipital Anterior Breech Position: N/A ROM/PLACENTA INFO BABY B Rupture of Membranes: 09/19/2016 18:31 Length of Rupture (hr): 0.08 Placenta Delivery Time : 09/19/2016 18:39 Placenta Method of Delivery: Spontaneous Placental Status : Delivered SCORES BABY B Heart Rate 1 min: >100 bpm Resp Effort 1 min: Good Cry Reflex Irritability 1 min: Cough or Sneeze or Pulls Away Muscle Tone 1 min: Active Motion Color 1 min: Blue/Pale SCORE 1 MIN: 8 Heart Rate 5 min: >100 bpm Resp Effort 5 min: Good Cry Reflex Irritability 5 min: Cough or Sneeze or Pulls Away Muscle Tone 5 min: Active Motion Color 5 min: Body Lannon, Extremities Blue SCORE 5 MIN: 9 INFORMATION BABY B Gestational Age at Delivery: 36.6 Gestational Status : Late - 34- 36.6 Weeks Outcome : Liveborn Infant Condition : Stable Infant Sex : Male IDENTIFICATION BABY B Verification Date/Time: 09/19/2016 18:56 ID Band Number : [id number] Mother's Name Verified: Yes RN Verifying Infant: H. Nikolai, RN and R. Marhefka, RN WEIGHT/LENGTH BABY B Birthweight (gm): 2630 Weight (lb) : 5 Infant Weight (oz): 13 Infant Length (in): 19.00 Infant Length (cm): 48.26 CORD INFORMATION BABY B No. Cord Vessels : 3 Nuchal Cord : N/A Cord Blood Taken : Yes-For Storage (Mom's Blood Type +) Infant Suction : Mouth; Nose ASSESSMENT BABY B Infant Complications : None Physical Findings at Delivery: Within Normal Limits Infant Respirations : Appears Normal Skin to Skin: Yes Skin to Skin Time (min): 60 Radio Repairer Domestic/ALS Called : Yes Care By : Tomás Reyes RN Transfer To: [facility] with Mother SIGNATURES Signature: with User ID: [email or web address]
--- NOTE | 2016-09-23 06:01 | L&D General Admission ---
General Admit Datetime Report Generated by CPN: 09/23/2016 06:00 INFORMATION Patient Age: 31 (08/02/2016 13:04:QS system process) EDC: 10/11/2016 00:00 (08/27/2016 05:27:Imani Wadsworth RN) : 3 (08/27/2016 05:27:Imani Wadsworth RN) Para: 2 (08/28/2016 09:54:Nguyen Menchaca RN) Term: 2 (08/27/2016 05:27:KHARI Black) : 0 (08/27/2016 05:27:KHARI Black) Spontaneous Abortions: 0 (08/27/2016 05:27:KHARI Black) Induced Abortions: 0 (08/27/2016 05:27:KHARI Black) Livin (08/27/2016 05:27:Imani Wadsworth RN) Cesareans: 0 (08/27/2016 05:27:KHARI Black) VBACs: 0 (08/27/2016 05:27:KHARI Black) Ectopic: 0 (08/27/2016 05:27:KHARI Black) Multiple Births: 1 (08/27/2016 05:27:KHARI Black) Baby, Number in Womb: 2 (08/28/2016 09:54:Nguyen Menchaca RN) CARE Primary Bulk Plant Manager: [facility] (08/27/2016 05:27:Imani Wadsworth RN) Month of 1st Visit: february (08/27/2016 05:27:KHARI Black) Adequate Care: Yes (08/27/2016 05:27:Imani Wadsworth RN) Prepregnancy Weight (lb): 168 (08/27/2016 05:27:KHARI Black) Prepregnancy Weight (kg): 76.4 (08/27/2016 05:27:QS system process) Height (in): 66 (09/21/2016 12:08:QS system process) ALLERGIES Medication Allergy: No (08/27/2016 05:27:Imani Wadsworth RN) Medication Allergies: No Known Allergies (08/27/2016) (08/27/2016 05:35:QS system process) Latex Allergy: No Latex Allergies (08/27/2016 05:27:Imani Wadsworth RN) Food Allergies: NA (08/27/2016 05:27:Imani Wadsworth RN) Environmental Allergies: NA (08/27/2016 05:27:Crystal BAUDILIO Wadsworth) COMMUNICATION Primary Language: Montenegrin (08/27/2016 05:27:Imani Wadsworth RN) Medical Tx Preferred Language: Montenegrin (08/27/2016 05:27:Claribel Barrientos RN) Communication Barrier(s): None (08/27/2016 05:27:Imani Wadsworth RN) DEMOGRAPHICS Address: [address] [place] [id number] (08/02/2016 13:04:QS system process) Zipcode: [address] (08/02/2016 13:04:QS system process) Home (08/02/2016 13:04:QS system process) SSN: [id number] (08/02/2016 13:04:QS system process) Next of Kin Name: CYNTHIA SMITH (08/02/2016 13:04:QS system process) Next of Kin (09/13/2016 14:29:QS system process) Next of Kin Relationship: SPO (08/02/2016 13:04:QS system process) Date of : 1985 (08/02/2016 13:04:QS system process) Marital Status: (08/02/2016 13:04:QS system process) Sex: Female (08/02/2016 13:04:QS system process) Race: (08/02/2016 13:04:QS system process) Ethnicity: Non- or (08/02/2016 13:04:QS system process) Amish: Faith (08/02/2016 13:04:QS system process) DRUG AND ALCOHOL USE Alcohol: No (08/27/2016 05:27:Imani Wadsworth RN) Cigarettes: Former Smoker. [id number] (08/27/2016 05:27:Imani Wadsworth RN) Marijuana: No (08/27/2016 05:27:Imani Wadsworth RN) Cocaine: No (08/27/2016 05:27:Imani Wadsworth RN) Other Illicit Drugs: No (08/27/2016 05:27:Imani Wadsworth RN) VACCINE HISTORY Influenza Vaccine: No (08/27/2016 05:27:Imani Wadsworth RN) Pneumococcal Vaccine: No (08/27/2016 05:27:Imani Wadsworth RN) Tetanus Vaccine: No (08/27/2016 05:27:Imani Wadsworth RN) Tdap Vaccine: Yes (08/27/2016 05:27:Imani Wadsworth RN) Tdap Date: 07/21/2016 (08/27/2016 05:27:Imani Wadsworth RN) Hepatitis B Vaccine: No (08/27/2016 05:27:Imani Wadsworth RN) Consulting Services Project Manager: [facility] (08/27/2016 05:27:Nguyen Menchaca RN) Feeding Preference: Breast (08/27/2016 05:27:Imani Wadsworth RN) Benefit of Breast Feed Discussed: Yes (08/27/2016 05:27:Imani Wadsworth RN) Circumcision: Yes (08/27/2016 05:27:Imani Wadsworth RN) Classes Attended: No (08/27/2016 05:27:Imani Wadsworth RN) Tubal Ligation: No (08/27/2016 05:27:Imani Wadsworth RN) Tubal Authorization Signed: N/A (08/27/2016 05:27:Imani Wadsworth RN) Consent: N/A (08/27/2016 05:27:Imani Wadsworth RN) Consent Signed: N/A (08/27/2016 05:27:Imani Wadsworth RN) Pain Management Plans: Epidural (08/27/2016 05:27:Imani Wadsworth RN) Plans for Labor and Delivery: None (08/27/2016 05:27:Imani Wadsworth RN) Support Person: Porfirio Smith (08/27/2016 05:27:Imani Wadsworth RN) Support Person Relationship: (08/27/2016 05:27:Imani Wadsworth RN) Cultural/Spritual Practice: Yes (08/27/2016 05:27:Imani Wadsworth RN) Spir/Cult Dietary Needs: Yes (08/27/2016 05:27:Imani Wadsworth RN) LIVING SITUATION/DISCHARGE PLAN Living Arrangements: House (08/27/2016 05:27:Imani Wadsworth RN) Adequate Access to:: Electric; Heat; Refrigeration; Plumbing/Running water; Phone; Transportation (08/27/2016 05:27:Imani Wadsworth RN) WIC Program: Yes (08/27/2016 05:27:Imani Wadsworth RN) Discharge Tan Room Supervisor Person: Porfirio Smith (08/27/2016 05:27:Imani Wadsworth RN) Person to Help after Discharge: Porfirio Smith (08/27/2016 05:27:Imani Wadsworth RN) Currently Using Commun Resources: Yes (08/27/2016 05:27:Imani Wadsworth RN) Specify Current Resource Used: Food stamps (08/27/2016 05:27:Imani Wadsworth RN) Outside Agency/Telecom Sales Consultant: Yes (08/27/2016 05:27:Imani Wadsworth RN) Car Seat for Discharge: Yes (08/27/2016 05:27:Imani Wadsworth RN) Adoption Requested: No (08/27/2016 05:27:Imani Wadsworth RN) Pt Contact w/ Post : N/A (08/27/2016 05:27:Imani Wadsworth RN) LABS Blood Type: A Positive (08/27/2016 05:27:Imani Wadsworth RN) Antibody Screen: Negative (08/27/2016 05:27:Imani Wadsworth RN) Hemoglobin: 12.2 (09/21/2016 07:21:QS system process) Hematocrit: 35.5 L (09/21/2016 07:21:QS system process) MCV: 92 (09/21/2016 07:21:QS system process) Group Beta Strep: Negative (08/27/2016 05:27:Samantha Theodore RN) Gonorrhea: Negative (08/27/2016 05:27:Imani Wadsworth RN) Chlamydia: Negative (08/27/2016 05:27:Imani Wadsworth RN) Rubella: Immune (08/27/2016 05:27:Imani Wadsworth RN) OB/PREVIOUS HISTORY Previous Procedures: NST (08/27/2016 05:27:Imani Wadsworth RN) Current Procedures: Ultrasound; NST (08/27/2016 05:27:Imani Wadsworth RN) History of Previous : No (08/27/2016 05:27:Imani Wadsworth RN) History of Gestational Diabetes: No (08/27/2016 05:27:Imani Wadsworth RN) History of PIH: No (08/27/2016 05:27:Imani Wadsworth RN) History of Incompetent Cervix: No (08/27/2016 05:27:Imani Wadsworth RN) History of Placenta Previa/Abrup: No (08/27/2016 05:27:Imani Wadsworth RN) History of Macrosomia: No (08/27/2016 05:27:Imani Wadsworth RN) History of IUGR: No (08/27/2016 05:27:Imani Wadsworth RN) History of Hemorrhage: No (08/27/2016 05:27:Imani Wadsworth RN) History of Loss/Stillborn: No (08/27/2016 05:27:Imani Wadsworth RN) History of : No (08/27/2016 05:27:Imani Wadsworth RN) History of D (Rh) Sensitization: No (08/27/2016 05:27:Imani Wadsworth RN) History Recurrent Loss/Stillborn: No (08/27/2016 05:27:Imani Wadsworth RN) History Depression/PP Depression: No (08/27/2016 05:27:Imani Wadsworth RN) History of Uterine Anomaly/NAVID: No (08/27/2016 05:27:Imani Wadsworth RN) History of Infertility: No (08/27/2016 05:27:Imani Wadsworth RN) History of ART Treatment: No (08/27/2016 05:27:Imani Wadsworth RN) History of NAVID: No (08/27/2016 05:27:Imani Wadsworth RN) Comments Obstetrical History: 04/10/2011- vaginal delivery 8lbs 08/14/2014- vaginal delivery 8 lbs 10 oz G3: current chris twins marginal insertion marginal insertion of twin A (08/27/2016 05:27:Jesica Vargas RN) MEDICAL HISTORY Med Hx Diabetes: No (08/27/2016 05:27:Imani Wadsworth RN) Med Hx Hypertension: No (08/27/2016 05:27:Imani Wadsworth RN) Med Hx Heart Disease: No (08/27/2016 05:27:Imani Wadsworth RN) Med Hx Autoimmune Disorder: No (08/27/2016 05:27:Imani Wadsworth RN) Med Hx Kidney Disease/UTI: No (08/27/2016 05:27:Imani Wadsworth RN) Med Hx Neurologic/Epilepsy: No (08/27/2016 05:27:Imani Wadsworth RN) Med Hx Psychiatric Disorders: No (08/27/2016 05:27:Imani Wadsworth RN) Med Hx Hepatitis/Liver Disease: No (08/27/2016 05:27:Imani Wadsworth RN) Med Hx Varicosities/Phlebitis: No (08/27/2016 05:27:Imani Wadsworth RN) Med Hx Thyroid Dysfunction: No (08/27/2016 05:27:Imani Wadsworth RN) Med Hx Trauma/Violence: No (08/27/2016 05:27:Imani Wadsworth RN) Med Hx Blood Transfusion: No (08/27/2016 05:27:Imani Wadsworth RN) Med Hx Pulmonary (Asthma,TB): No (08/27/2016 05:27:Imani Wadsworth RN) Med Hx Breast: No (08/27/2016 05:27:Imani Wadsworth RN) Med Hx APARTMENT MAINTENANCE MANAGER Surgery: No (08/27/2016 05:27:Imani Wadsworth RN) Med Hx Hospitalization/Surgery: No (08/27/2016 05:27:Imani Wadsworth RN) Med Hx Anesthetic Complications: No (08/27/2016 05:27:Imani Wadsworth RN) Med Hx Abnormal Pap Smear: No (08/27/2016 05:27:Imani Wadsworth RN) Other Medical Diseases: No (08/27/2016 05:27:Imani Wadsworth RN) Med Hx Significant Family Hx: No (08/27/2016 05:27:Imani Wadsworth RN) INFECTIOUS HISTORY Inf Hx Gonorrhea: No (08/27/2016 05:27:Imani Wadsworth RN) Inf Hx Chlamydia: No (08/27/2016 05:27:Imani Wadsworth RN) Inf Hx Syphilis: No (08/27/2016 05:27:Imani Wadsworth RN) Inf Hx HIV/AIDS: No (08/27/2016 05:27:Imani Wadsworth RN) Inf Hx Human Papilloma Virus: No (08/27/2016 05:27:Imani Wadsworth RN) Inf Hx Pt/Partner Genital Herpes: No (08/27/2016 05:27:Imani Wadsworth RN) Inf Hx Tuberculosis/Exposure: No (08/27/2016 05:27:Imani Wadsworth RN) Inf Hx Hepatitis B,C: No (08/27/2016 05:27:Imani Wadsworth RN) Inf Hx Rash or Viral Illness: No (08/27/2016 05:27:Imani Wadsworth RN) GENETIC HISTORY Gen Hx Age >=35 at [place]: No (08/27/2016 05:27:Imani Wadsworth RN) Gen Hx Thalassemia: No (08/27/2016 05:27:Imani Wadsworth RN) Gen Hx Congenital Heart Defect: No (08/27/2016 05:27:Imani Wadsworth RN) Gen Hx Neural Tube Defect: No (08/27/2016 05:27:Imani Wadsworth RN) Gen Hx Down's Syndrome: No (08/27/2016 05:27:Imani Wadsworth RN) Gen Hx Samuel-Sachs: No (08/27/2016 05:27:Imani Wadsworth RN) Gen Hx Francisco: No (08/27/2016 05:27:Imani Wadsworth RN) Gen Hx Familial Dysautonomia: No (08/27/2016 05:27:Imani Wadsworth RN) Gen Hx Sickle Cell Disease/Trait: No (08/27/2016 05:27:Imani Wadsworth RN) Gen Hx Hemophilia/Blood Disorder: No (08/27/2016 05:27:Imani Wadsworth RN) Gen Hx Muscular Dystrophy: No (08/27/2016 05:27:Imani Wadsworth RN) Gen Hx Cystic Fibrosis: No (08/27/2016 05:27:Imani Wadsworth RN) Gen Hx Huntingtons Chorea: No (08/27/2016 05:27:Imani Wadsworth RN) Gen Hx Mental Retardation/Autism: No (08/27/2016 05:27:Imani Wadsworth RN) Gen Hx Tested for Fragile X: No (08/27/2016 05:27:Imani Wadsworth RN) Gen Hx Other Inher/Chromosomal: No (08/27/2016 05:27:Imani Wadsworth RN) Gen Hx Maternal Metabolic DO: No (08/27/2016 05:27:Imani Wadsworth RN) Gen Hx Pt Father or FOB Defect: No (08/27/2016 05:27:Imani Wadsworth RN) Gen Hx Other Genetic History: No (08/27/2016 05:27:Imani Wadsworth RN) Gen Hx Drugs/Meds since LMP: No (08/27/2016 05:27:Imani Wadsworth RN)
== END 2016-09-21 14:30 | disposition home or self-care (01) | DRG 775 ==
LOC: LC 17:21 → LR 17:45 → 2S 21:05
PROVIDERS: ADMIT Obstetrics & Gynecology; ATTEND Obstetrics & Gynecology
PROC: 10E0XZZ Delivery of Products of Conception, External Approach (ICD-10-PCS; principal; 2016-09-19)
PROC: 0KQM0ZZ Repair Perineum Muscle, Open Approach (ICD-10-PCS; 2016-09-19)
PROC: 4A1HXCZ Monitoring of Products of Conception, Cardiac Rate, External Approach (ICD-10-PCS; 2016-09-19)
DX: O60.14X0 Preterm labor third trimester with preterm delivery third trimester, not applicable or unspecified (principal); O30.043 Twin pregnancy, dichorionic/diamniotic, third trimester; O70.1 Second degree perineal laceration during delivery; Z87.891 Personal history of nicotine dependence; Z3A.36 36 weeks gestation of pregnancy; Z37.2 Twins, both liveborn
CPT/HCPCS: 36415; 80307; 81001; 85025; 85027; 86592; 86850; 86900; 86901; 88307; J1885; J2250; J2405; J2590; J3010; J3490; S0119